=== PATIENT | male | born 1945 | race Caucasian/White ===

== ENCOUNTER 2021-04-20 09:43 | Outpatient (REF) | payer MEDICARE, SELFPAY ==
--- NOTE | ~2021-04-20 | CT_ITS ---
EXAMINATION: CT HEAD WITHOUT CONTRAST CLINICAL INFORMATION: Dizziness intravenous COMPARISON: None TECHNIQUE: Contiguous axial imaging was performed from the skull base to vertex without intravenous administration of contrast. This CT examination was performed using dose optimization techniques as appropriate, variously including the following: *Automated exposure control *Adjustment of mA and/or kV according to patient size (this includes techniques or standardized protocols for targeted exams where dose is matched to indication/reason for exam; i.e. extremities or head) *Use of iterative reconstruction technique DLP: 700 mGy-cm FINDINGS: There is no evidence of an extra-axial collection. There is no evidence of intra-axial or extra-axial hemorrhage. Ventricles and extra-axial CSF spaces are slightly prominent suggestive of mild generalized atrophy. There is nonspecific periventricular white matter disease. No mass, mass effect or infarct is seen. There is old trauma or postsurgical change to the right parietal bone. There are bilateral nasal bone fractures, probably old. There are degenerative changes at the right temporomandibular joint. Bony structures are otherwise unremarkable. Paranasal sinuses, mastoid air cells and middle ears are clear. CT/CT head/brain wo con IMPRESSION: No acute intracranial findings. Mild generalized atrophy and nonspecific periventricular white matter disease.
== END 2021-04-20 09:44 | disposition home or self-care (01) ==
LOC: HO.CT 09:43
PROVIDERS: PCP Internal Medicine; Visit Provider Internal Medicine
DX: R42 Dizziness and giddiness (principal)
CPT/HCPCS: 70450

== ENCOUNTER 2021-08-14 09:26 | Inpatient (IN) | payer MEDICARE, SELFPAY ==
[2021-08-14] VITALS (8 sets, daily range): BP systolic 120–173; BP diastolic 48–90; PULSE 59–85; RESP 16–19; TEMP 36.7–37.1; O2SAT 90–94; BMI 26.7; BMI 27.3
--- NOTE | ~2021-08-14 | XR_ITS ---
EXAMINATION: XR CHEST CLINICAL INFORMATION: Worsening hypoxia COMPARISON: Previous chest CT 08/14/2021 TECHNIQUE: AP view of the chest was obtained. FINDINGS: The cardiac and mediastinal contours are normal. There is a small left pleural effusion. There is increasing atelectasis or consolidation in the adjacent left lung base. The lungs are otherwise clear. There is no right pleural effusion. There is no pneumothorax XR/XR chest 1V IMPRESSION: New small left pleural effusion and increasing atelectasis or consolidation at the left lung base.
--- NOTE | ~2021-08-14 | CT_ITS ---
EXAMINATION: CT BRAIN, CT CERVICAL SPINE WITHOUT CONTRAST. CT CHEST, ABDOMEN PELVIS WITHOUT CONTRAST. CLINICAL INFORMATION: Fall, ecchymosis left flank. COMPARISON: None TECHNIQUE: 5 mm thin axial and reformatted 3 mm thin sagittal coronal images of chest, abdomen and pelvis were obtained following IV 75 mL Omnipaque 300. DLP 744. Axial 5 minutes thin and reformatted 2 minutes thin sagittal and coronal images of brain were obtained. Lastly axial 3 mm thin and 2 minutes thin reconstructed sagittal coronal images of cervical spine were obtained. DLP 1205. FINDINGS: Chest: There is diffuse centrilobular and paraseptal emphysematous changes of both lungs without acute consolidation. There is a reticular interstitial thickening involving both lower lobes, right middle lobe and lingula moderate parenchymal thickening involving the lingula and right lower lobe. Scattered 1 mm and less nodular densities are seen in both lung bases. Focal thick bandlike atelectasis seen in right lower lobe posterior basal segment. There is no worrisome nodule or mass visualized. There is no pleural effusion, calcification or thickening seen. The thyroid lobes are symmetrical and normal. The heart size and the great vessels are normal caliber. There are small shotty lymph nodes in the mediastinum. The central trachea and the bronchi widely patent. The axilla and chest wall appears unremarkable. Bone windows reveals left posterior lateral ninth and 10th rib minimally displaced fractures. No additional bony abnormality seen. ABDOMEN AND PELVIS: The liver is normal size, contour and density. No focal lesion or laceration seen. No intrahepatic ductal dilatation. Visualized spleen, pancreas, bilateral adrenal glands unremarkable. There are no radiopaque gallstones, radiopaque renal calculi or hydronephrosis. There are bilateral renal hypodensities likely renal cysts. Largest cyst midpole right measures 2 cm. There is atherosclerotic changes of abdominal aorta with a normal caliber aorta and common iliac arteries. There is moderate stool in the right colon with scattered gas, diverticuli throughout the colon without distention. The small bowel loops are normal caliber. Appendix is not visualized. No obstruction, free air or free fluid. There is a small umbilical hernia containing fat. No intra-abdominal mass or lymphadenopathy seen. Obesity due to the pelvis reveals a unremarkable nondistended bladder. No free fluid. The prostate gland is normal. Bone windows reveal severe degenerative disc changes L4-L5 disc level with mild ventral spondylosis lower dorsal and mid lumbar spine. No lytic or sclerotic process seen. Brain: There is no acute intra-axial, extra-axial bleed, masses or midline shift. There is no acute infarction evolution. There is no edema. There is diffuse periventricular hypodensity in both cerebral hemispheres without mass effect. Bone windows reveal mild deformity of the outer table of the right frontoparietal calvarium. Question old injury. Bilateral paranasal sinuses are normal. There is no scalp soft tissue abnormality. Cervical spine: There is normal cervical lordosis. The vertebral heights and alignment is normal. There is loss of C3-C4, C4-C5, C5-C6 and C6-C7 disc heights with mild ventral and posterior spondylosis. The craniovertebral junction and the C1-C2 alignment is normal. There is moderate left C2-C3, C3-C4 facet joint arthropathy and hypertrophy. No lytic or sclerotic process seen. No visible acute fracture, dislocation or lytic process seen. The prevertebral and paravertebral soft tissues are normal. There is diffuse emphysematous changes of both upper lobes. CT/CT cervical spine wo con IMPRESSION: Left posterolateral ninth and 10th of fractures without pneumothorax. Diffuse emphysema with bibasilar, right middle lobe and lingular scarring and/or atelectasis. No acute process seen in the abdomen. There are bilateral renal cysts without radiopaque calculi or hydronephrosis. The solid organs are intact. Moderate stool is seen in the right colon with scattered colonic diverticulosis. No acute intracranial process seen. There is mild deformity right frontoparietal calvarium. There is no acute fracture, dislocation or subluxation cervical spine. There are degenerative disc changes with ventral spondylosis C3-C4, C4-C5, C5-C6 and C6-C7 disc levels.
--- NOTE | 2021-08-14 09:39 | ECG_ITS ---
Test Reason : CHEST TRUMA Blood Pressure : / mmHG Vent. Rate : 078 BPM Atrial Rate : 078 BPM P-R Int : 176 ms QRS Dur : 078 ms QT Int : 382 ms P-R-T Axes : 064 -32 063 degrees QTc Int : 435 ms Sinus rhythm with occasional Premature ventricular complexes Left axis deviation Low voltage QRS Abnormal ECG No previous ECGs available Referred By: Mary Cassidy Electronically Signed By:MARIANO VINSON
--- NOTE | 2021-08-14 09:41 | ED_ITS ---
HPI - Trauma General Chief Complaint: Fall Stated Complaint: L SIDE PAIN S/P FALL LAST NIGHT Time Seen by Provider: 08/14/21 09:37 Source: patient Mode of arrival: EMS History of Present Illness HPI narrative: 76-year-old male brought in by EMS from a rest home with past medical history of COPD, diabetes, hypertension and reports seizures as well as multiple falls over the past couple of years, currently on Xarelto. Patient feels like his falls are related to low blood sugar levels and he states that he falls out of bed at night. On presentation he complains of left chest/rib pain. Patient reports that he has been having increased falls that he states occur whenever he gets out of bed and he feels strongly that this is related to low sugar levels, denies any palpitations prior to the events or chest pain. Related Data Home Medications Medication Instructions Recorded Confirmed aspirin 81 mg tablet,delayed 81 mg PO DAILY 11/18/20 06/22/21 release (Adult Low Dose Aspirin) Previous Rx's Medication Instructions Recorded insulin syringe-needle U-100 0.5 #100 ea 02/04/21 mL 30 gauge x 1/2 (BD Insulin Syringe Ultra-Fine) compr.stocking,thigh,reg,large #2 ea 02/07/21 albuterol sulfate 90 mcg/actuation 1 puff INHALATION Q4H PRN #8.5 g 02/10/21 aerosol inhaler amlodipine 10 mg tablet 10 mg PO DAILY #90 tab 02/10/21 budesonide-formoterol HFA 160 2 puff INHALATION BID #10.2 g 02/10/21 mcg-4.5 mcg/actuation aerosol inhaler (Symbicort) rivaroxaban 20 mg tablet (Xarelto) 20 mg PO DAILY #90 tab 02/10/21 gabapentin 400 mg capsule 400 mg PO BID #180 cap 02/14/21 lisinopril 40 mg tablet 40 mg PO DAILY #90 tab 02/14/21 insulin lispro protamine-lispro 45 unit (0.45 mL) SUBCUT BID #10 ml 03/24/21 100 unit/mL (75-25) subcutaneous susp (Humalog Mix 75-25(U-100)Insuln) blood sugar diagnostic (OneTouch #100 ea 04/26/21 Ultra Test) lancets 30 gauge (OneTouch Delica #100 ea 06/14/21 Plus Lancet) chair, wheel (Wheel chair) #1 ea 06/22/21 Allergies Allergy/AdvReac Type Severity Reaction Status Date / Time No Known Allergies Allergy Verified 06/22/21 12:49 Review of Systems Review of Systems: Pertinent positives and negatives as stated in HPI 10 point review of systems is otherwise negative. [facility] Past Medical History Source: nursing notes reviewed Medical History Diabetes mellitus with coincident hypertension Surgical History History of tonsillectomy Family History Family History Mother No problems noted. Father No problems noted. Other Substance use disorder Social History Social History Housing: Assisted Living Facility Alcohol intake: never Patient Tobacco Use Status: Former Tobacco user Quit Date: 2017 e-Cigarette/Vaping Use: Never Used Second Hand Smoke Exposure: No Use of substances other than those prescribed or required for medical reasons: No Advance Directives: No Advance Directives Information Provided: No service: No Current occupational status: unemployed Cognitive needs: Yes Hearing needs: No Vision needs: No Physical Exam Vital Signs: Vital Signs: Last Vital Signs Temp 98.2 F 08/14/21 09:38 Pulse 82 08/14/21 10:41 Resp 19 08/14/21 10:41 BP 173/70 H 08/14/21 09:38 Pulse Ox 94 08/14/21 10:41 BMI result Body Mass Index 26.7 Blood Thinners: Yes PRIMARY SURVEY A: Airway intact B: Bilateral, symmetrical breath sounds C: Bilateral DP/PT/femoral/radial palpable pulses symmetrical, ABD soft/ non- distended, PELVIS: stable/+ tender BP:173/70 D: GCS-15, motor and sensory grossly intact, FAST not completed E: No back abrasions, no cervical/thoracic/lumbar vertebral tenderness/step-off, KINJAL- deferred SECONDARY SURVEY HEAD: NC/AT, no lacerations/contusions noted; EARS: no hemotympanum; EYES: 2mm PERRLA, EOMI NOSE: no deformity, wnl; OROPHARYNX: able to open mouth and tongue is midline without laceration FACE: without abrasions, lacerations, contusions, or ttp NECK: c-collar, no cervical spine tenderness; CHEST WALL/THORAX: no clavicle deformity or ttp, no sternum but left rib deformity, ttp at left ribs RUE: fROM at shoulder/elbow/wrist and neurovascular intact, no deformity, no abrasions/lacerations, cap refill <3s LUE: fROM at shoulder/elbow/wrist and neurovascular intact, no deformity, no abrasions/lacerations, cap refill <3s ABD: soft, non-tender, non-distended, left flank ecchymosis PELVIS: stable, tenderness on the left : external genitalia grossly within normal limits RLE: fROM at hip/knee/ankle neurovascular intact LLE: fROM at hip/knee/ankle neurovascular intact ROS: 10 point review of systems has been completed. Please refer to HPI for pertinent negative and positives. A/P: 76-year-old male with multiple falls most recently this morning on Xarelto and complaining of left chest wall pain, tenderness, shortness of breath - Labs (CBC, CMP, Troponin, PT/INR, PTT) - CT: head, c-spine, Thorax w/ contrast and T-spine recon, Abd/pelvis w contrast and L-spine recon - Type and Screen - Urinalysis, Urine Tox - Blood Alcohol - Tetanus - Consult <> Course Course Course Narrative: Review of all investigations demonstrates that patient has a mild leukocytosis which is felt to be reactive secondary to traumatic fall this morning. All imaging otherwise negative except for left posterior lateral fractures rib 9/10. EKG does not show any evidence of arrhythmia and patient reports that he is on anticoagulation for history DVT. The biggest concern at this point is that p jolene reports these have all been syncopal episodes that he feels are associated with hypoglycemia, although of note glucose is 228 on arrival. Patient provided with combination analgesics, no suggestion of COPD exacerbation at this time. I discussed this case with the inpatient hospitalist who accepts admission after orthostatics evaluation. MDM - Trauma Lab Data Result diagrams: 08/14/21 09:55 08/14/21 09:55 Labs: Lab Results 08/14/21 08/14/21 08/14/21 Range/Units 09:55 09:55 09:55 WBC 12.2 H (4.8-10.8) X10*3/uL RBC 4.62 (4.60-5.80) X10*6/uL Hgb 13.2 L (14.0-18.0) g/dl Hct 40.4 L (42.0-52.0) % MCV 87.4 (80.0-98.0) fL MCH 28.6 (27.0-33.0) pg MCHC 32.7 (31.0-36.0) g/dl RDW 12.8 (11.0-16.0) % Plt Count 211 (160-400) X10*3/uL MPV 11.2 (9.4-12.4) fL Immature Gran % (Auto) 0.2 (0.0-0.4) % Neut % (Auto) 83.8 H (45-73) % Lymph % (Auto) 8.3 L (20-40) % [place] % (Auto) 7.2 (2-11) % Eos % (Auto) 0.2 (0-4) % Baso % (Auto) 0.3 (0-2) % Lymph # (Auto) 1.0 L (1.2-4.9) X10*3/uL [place] # (Auto) 0.9 (0.1-1.2) X10*3/uL Eos # (Auto) 0.0 (0.0-0.4) X10*3/uL Baso # (Auto) 0.0 (0.0-0.2) X10*3/uL Abs Immat Gran (auto) 0.03 (0.00-0.03) X10*3/uL Absolute Neuts (auto) 10.3 H (2.0-8.3) x10*3/uL Absolute Nucleated RBC 0.000 (0.0-0.012) X10*3/uL Nucleated RBC % (auto) 0.0 (0.0-0.2) /100WBC PT 14.9 H (9.9-13.0) SEC INR 1.3 H (0.9-1.1) Sodium 137 (135-145) mmol/L Potassium 4.8 (3.3-5.1) mmol/L Chloride 102 (96-108) mmol/L Carbon Dioxide 22 (22-29) mmol/L Anion Gap 18 (12-20) BUN 25 H (9-16) mg/dL Creatinine 1.29 (0.5-1.4) mg/dL Estim Creat Clear Calc 46.2 Estimated GFR 54 POC Glucose (60-115) mg/dL Random Glucose 233 H (60-115) mg/dL Lactic Acid (0.5-2.0) mmol/L Calcium 9.2 (8.4-10.2) mg/dL Magnesium 2.0 (1.6-2.6) mg/dL Total Bilirubin 2.5 H (0.0-1.0) mg/dL AST 34 (5-37) U/L ALT 23 (0-40) U/L Alkaline Phosphatase 69 (39-117) U/L Total Protein 6.8 (6.5-8.0) g/dL Albumin 4.2 (3.5-5.0) g/dL Urine Color Urine Appearance Urine pH (5.0-8.0) Ur Specific [place] (1.005-1.025) Urine Protein (NEG-TRACE) MG/DL Urine Glucose (UA) (NEG) MG/DL Urine Ketones (NEG) MG/DL Urine Blood (NEG) Urine Nitrite (NEG) Ur Leukocyte Esterase (NEG) Urine RBC (0) /HPF Urine WBC (0-4) /HPF Ur Squamous Epith Cells /LPF Urine Bacteria /LPF Urine Mucus /LPF Ethyl Alcohol mg/dL 08/14/21 08/14/21 08/14/21 Range/Units 09:55 09:55 10:07 WBC (4.8-10.8) X10*3/uL RBC (4.60-5.80) X10*6/uL Hgb (14.0-18.0) g/dl Hct (42.0-52.0) % MCV (80.0-98.0) fL MCH (27.0-33.0) pg MCHC (31.0-36.0) g/dl RDW (11.0-16.0) % Plt Count (160-400) X10*3/uL MPV (9.4-12.4) fL Immature Gran % (Auto) (0.0-0.4) % Neut % (Auto) (45-73) % Lymph % (Auto) (20-40) % [place] % (Auto) (2-11) % Eos % (Auto) (0-4) % Baso % (Auto) (0-2) % Lymph # (Auto) (1.2-4.9) X10*3/uL [place] # (Auto) (0.1-1.2) X10*3/uL Eos # (Auto) (0.0-0.4) X10*3/uL Baso # (Auto) (0.0-0.2) X10*3/uL Abs Immat Gran (auto) (0.00-0.03) X10*3/uL Absolute Neuts (auto) (2.0-8.3) x10*3/uL Absolute Nucleated RBC (0.0-0.012) X10*3/uL Nucleated RBC % (auto) (0.0-0.2) /100WBC PT (9.9-13.0) SEC INR (0.9-1.1) Sodium (135-145) mmol/L Potassium (3.3-5.1) mmol/L Chloride (96-108) mmol/L Carbon Dioxide (22-29) mmol/L Anion Gap (12-20) BUN (9-16) mg/dL Creatinine (0.5-1.4) mg/dL Estim Creat Clear Calc Estimated GFR POC Glucose 228 H (60-115) mg/dL Random Glucose (60-115) mg/dL Lactic Acid 1.1 (0.5-2.0) mmol/L Calcium (8.4-10.2) mg/dL Magnesium (1.6-2.6) mg/dL Total Bilirubin (0.0-1.0) mg/dL AST (5-37) U/L ALT (0-40) U/L Alkaline Phosphatase (39-117) U/L Total Protein (6.5-8.0) g/dL Albumin (3.5-5.0) g/dL Urine Color Urine Appearance Urine pH (5.0-8.0) Ur Specific [place] (1.005-1.025) Urine Protein (NEG-TRACE) MG/DL Urine Glucose (UA) (NEG) MG/DL Urine Ketones (NEG) MG/DL Urine Blood (NEG) Urine Nitrite (NEG) Ur Leukocyte Esterase (NEG) Urine RBC (0) /HPF Urine WBC (0-4) /HPF Ur Squamous Epith Cells /LPF Urine Bacteria /LPF Urine Mucus /LPF Ethyl Alcohol < 10 mg/dL 08/14/21 Range/Units 13:35 WBC (4.8-10.8) X10*3/uL RBC (4.60-5.80) X10*6/uL Hgb (14.0-18.0) g/dl Hct (42.0-52.0) % MCV (80.0-98.0) fL MCH (27.0-33.0) pg MCHC (31.0-36.0) g/dl RDW (11.0-16.0) % Plt Count (160-400) X10*3/uL MPV (9.4-12.4) fL Immature Gran % (Auto) (0.0-0.4) % Neut % (Auto) (45-73) % Lymph % (Auto) (20-40) % [place] % (Auto) (2-11) % Eos % (Auto) (0-4) % Baso % (Auto) (0-2) % Lymph # (Auto) (1.2-4.9) X10*3/uL [place] # (Auto) (0.1-1.2) X10*3/uL Eos # (Auto) (0.0-0.4) X10*3/uL Baso # (Auto) (0.0-0.2) X10*3/uL Abs Immat Gran (auto) (0.00-0.03) X10*3/uL Absolute Neuts (auto) (2.0-8.3) x10*3/uL Absolute Nucleated RBC (0.0-0.012) X10*3/uL Nucleated RBC % (auto) (0.0-0.2) /100WBC PT (9.9-13.0) SEC INR (0.9-1.1) Sodium (135-145) mmol/L Potassium (3.3-5.1) mmol/L Chloride (96-108) mmol/L Carbon Dioxide (22-29) mmol/L Anion Gap (12-20) BUN (9-16) mg/dL Creatinine (0.5-1.4) mg/dL Estim Creat Clear Calc Estimated GFR POC Glucose (60-115) mg/dL Random Glucose (60-115) mg/dL Lactic Acid (0.5-2.0) mmol/L Calcium (8.4-10.2) mg/dL Magnesium (1.6-2.6) mg/dL Total Bilirubin (0.0-1.0) mg/dL AST (5-37) U/L ALT (0-40) U/L Alkaline Phosphatase (39-117) U/L Total Protein (6.5-8.0) g/dL Albumin (3.5-5.0) g/dL Urine Color YELLOW Urine Appearance CLEAR Urine pH 6.5 (5.0-8.0) Ur Specific [place] <= 1.005 (1.005-1.025) Urine Protein TRACE (NEG-TRACE) MG/DL Urine Glucose (UA) NEG (NEG) MG/DL Urine Ketones 40 (NEG) MG/DL Urine Blood TRACE (NEG) Urine Nitrite NEG (NEG) Ur Leukocyte Esterase NEG (NEG) Urine RBC 0-2 (0) /HPF Urine WBC 0 (0-4) /HPF Ur Squamous Epith Cells NONE /LPF Urine Bacteria NONE /LPF Urine Mucus 1+ /LPF Ethyl Alcohol mg/dL ECG Data Attestation: I personally reviewed and interpreted this ECG as follows: Prior ECG tracings: not available for review Interpretation: Sinus rhythm with occasional PVCs, HR-78, no STEMI, [place]/QRS/QTC are within normal limits. Critical Care Time Critical Care Time Critical Care Time: Yes Total Critical Care Time: 30 Attestation: I personally attest to this time spent taking care of the patient. Discharge Plan Discharge Clinical Impression: Syncope, Trauma, Multiple rib fractures, COPD (chronic obstructive pulmonary disease), Diabetes Patient Disposition: Admitted As Inpatient Prescriptions: No Action (DME) insulin syringe-needle U-100 [BD Insulin Syringe Ultra-Fine] 0.5 mL 30 gauge x 1/2 syringe See Rx Instructions ea .ROUTE .MEDSUPPLY Qty: 100 0RF Rx Instructions: Use daily (DME) compr.stocking,thigh,reg,large Misc See Rx Instructions .Route Qty: 2 0RF Rx Instructions: To use daily albuterol sulfate 90 mcg/actuation HFA aerosol inhaler 1 puff inhalation Q4H PRN (Reason: wheezing) Qty: 8.5 8RF amlodipine 10 mg tablet 10 mg PO DAILY Qty: 90 8RF budesonide-formoterol [Symbicort] 160-4.5 mcg/actuation HFA aerosol inhaler 2 puff inhalation BID Qty: 10.2 8RF Xarelto 20 mg tablet 20 mg PO DAILY Qty: 90 8RF gabapentin 400 mg capsule 400 mg PO BID Qty: 180 8RF lisinopril 40 mg tablet 40 mg PO DAILY Qty: 90 8RF Humalog Mix 75-25(U-100)Insuln 100 unit/mL (75-25) suspension 45 unit subcut BID Qty: 10 8RF (DME) OneTouch Ultra Test Strip See Rx Instructions ea .ROUTE .MEDSUPPLY Qty: 100 8RF Rx Instructions: to check blood sugars three times a day (DME) lancets [OneTouch Delica Plus Lancet] 30 gauge misc See Rx Instructions ea .ROUTE .MEDSUPPLY Qty: 100 8RF Rx Instructions: As directed (DME) Wheel chair Kit See Rx Instructions .Route Qty: 1 0RF Rx Instructions: As directed aspirin [Adult Low Dose Aspirin] 81 mg tablet,delayed release (DR/EC) 81 mg PO DAILY 0RF hydrocodone-acetaminophen 5-325 mg tablet 1 - 2 tab PO TID PRN (Reason: pain) 0RF Flovent HFA 110 mcg/actuation HFA aerosol inhaler 2 puff inhalation BID 0RF nitroglycerin 0.4 mg tablet, sublingual 0.4 mg sublingual Q5M PRN0RF Rx Instructions: do not exceed 3 doses per episode
[2021-08-14 10:03] LABS: MANUAL DIFF FLAG NO
[2021-08-14 10:04] LABS: Basophils Percent Auto 0.3 % (0-2); Eosinophils Percent Auto 0.2 % (0-4); Hematocrit 40.4 % (42.0-52.0); Hemoglobin 13.2 g/dl (14.0-18.0); Imm Gran Abs Auto 0.03 X10*3/uL (0.00-0.03); Imm Gran Pct Auto 0.2 % (0.0-0.4); Lymphocytes Percent Auto 8.3 % (20-40); Mean Corpuscular HGB Conc 32.7 g/dl (31.0-36.0); Mean Corpuscular Hemoglobin 28.6 pg (27.0-33.0); Mean Corpuscular Volume 87.4 fL (80.0-98.0); Mean Platelet Volume 11.2 fL (9.4-12.4); Monocytes Absolute Auto 0.9 X10*3/uL (0.1-1.2); Monocytes Percent Auto 7.2 % (2-11); Neutrophils Absolute Auto 10.3 x10*3/uL (2.0-8.3); Neutrophils Percent Auto 83.8 % (45-73); Platelet Count 211 X10*3/uL (160-400); Red Blood Count 4.62 X10*6/uL (4.60-5.80); Red Cell Distribution Width 12.8 % (11.0-16.0); White Blood Count 12.2 X10*3/uL (4.8-10.8)
[2021-08-14 10:10] LABS: INTERNATIONAL NORM RATIO 1.3 (0.9-1.1); Prothrombin Time 14.9 SEC (9.9-13.0)
[2021-08-14 10:14] LABS: Lactic Acid 1.1 mmol/L (0.5-2.0)
[2021-08-14 10:16] LABS: Ethanol < 10 mg/dL
[2021-08-14 10:22] LABS: Alanine Aminotransferase 23 U/L (0-40); Albumin Level 4.2 g/dL (3.5-5.0); Alkaline Phosphatase 69 U/L (39-117); Anion Gap 18 (12-20); Aspartate Amino Transferase 34 U/L (5-37); Bilirubin Total 2.5 mg/dL (0.0-1.0); Blood Urea Nitrogen 25 mg/dL (9-16); Calcium 9.2 mg/dL (8.4-10.2); Carbon Dioxide 22 mmol/L (22-29); Chloride 102 mmol/L (96-108); Creatinine Clr Calc Pharmacy 46.2; Estimated Glomerular Filt Rate 54; Glucose Random 233 mg/dL (60-115); Potassium 4.8 mmol/L (3.3-5.1); Sodium 137 mmol/L (135-145); Total Protein 6.8 g/dL (6.5-8.0)
[2021-08-14 11:52] LABS: Glucose, Whole Blood 228 mg/dL (60-115)
[2021-08-14 13:39] LABS: Appearance Urine CLEAR; Color Urine YELLOW; Glucose Urine UA NEG (NEG); Leukocyte Esterase Urine NEG (NEG); Nitrite Urine NEG (NEG); PH 6.5 (5.0-8.0); Specific Gravity - Urine <= 1.005 (1.005-1.025); UACC Culture Trigger NO; Urine Blood TRACE (NEG); Urine Ketones 40 MG/DL (NEG); Urine Protein TRACE MG/DL (NEG-TRACE)
[2021-08-14 13:46] LABS: Mucus Urine 1+ /LPF; RBC Urine 0-2 /HPF (0); WBC Urine 0 /HPF (0-4)
[2021-08-14] MEDS: Acetaminophen 325 MG TABLET 975 MG PO (13:55)
[2021-08-14] MEDS: Lidocaine 4 % Patch ADH..PATCH 1 PATCH TRANSDERMA (13:56)
[2021-08-14] MEDS: Ketorolac Tromethamine 30 MG/ML VIAL 15 MG IVPUSH (13:56)
[2021-08-14] MEDS: Benzonatate 100 MG CAPSULE 200 MG PO (14:19)
--- NOTE | 2021-08-14 14:25 | PC.NURSE ---
alert, speech clear, skin wpd, c/o l chest wall pain, medicated as ordered, aware of care plan, pt was not able to ambulate safely at the assisted living prior to the fall per the pt, does not think he could safely go home, md informed and plan to consult case management, pt agreeable w plan
[2021-08-14] MEDS: 0.9 % Sodium Chloride 1,000 ML 999 ML IV (14:50)
[2021-08-14 15:13] LABS: B Type Natriuretic Peptide 158 pg/mL (<100)
--- NOTE | 2021-08-14 16:03 | PM.IMHP ---
History of Present Illness Date of Service: 08/14/21 Attending physician on admission: Cooper Xie Chief Complaint: Falls, left rib pain This is a 76-year-old male with multiple medical problems who presents the emergency department after a fall. Patient states that he has fallen approximately 10 times over the past 2 and half years. He is a somewhat vague and disorganized historian. On one hand he states that these falls typically happen when he goes from a sitting to standing position and on the other hand he reports that he frequently falls out of bed secondary to low blood sugars. He also states that his blood sugar drops when he stands up. He denies any dizziness, palpitations, chest pain or associated shortness of breath. He denies any history of seizures but thinks that he does have seizures. He was morales-scanned in the emergency department and workup was notable for left 9th and 10th rib fractures. Orthostatic vital signs were obtained and showed a drop from 140 systolic to 120 systolic when standing. Review of Systems Review of Systems: Yes all other systems are reviewed and are negative Constitutional: Constitutional: Denies chills and Denies fever(s) Cardiovascular: Cardiovascular: Denies chest pain, Denies palpitations and Denies dyspnea Respiratory: Respiratory: Denies cough, Reports pain on inspiration and Denies dyspnea Gastrointestinal: Gastrointestinal: Denies abdominal pain, Denies nausea and Denies vomiting Endocrine: Endocrine: Denies palpitations COUNT INCLUDES THE [facility] Medical History (Updated 08/14/21 @ 16:09 by MARTÍN Flores) COPD (chronic obstructive pulmonary disease) Diabetes mellitus with coincident hypertension HTN (hypertension) Functional capacity: independent ambulation Family History Mother No problems noted. Father No problems noted. Other Substance use disorder Surgical History History of tonsillectomy Social History Housing: Assisted Living Facility Alcohol intake: never Patient Tobacco Use Status: Former Tobacco user Quit Date: 2017 e-Cigarette/Vaping Use: Never Used Second Hand Smoke Exposure: No Use of substances other than those prescribed or required for medical reasons: No Advance Directives: No Advance Directives Information Provided: No service: No Current occupational status: unemployed Cognitive needs: Yes Hearing needs: No Vision needs: No Meds Allergies Allergy/AdvReac Type Severity Reaction Status Date / Time No Known Allergies Allergy Verified 06/22/21 12:49 Active Medications: Current Medications Acetaminophen (Acetaminophen 325 Mg Tablet) 650 mg PO Q6H PRN PRN Reason: Pain, Mild (Pain Scale 1-3) Albuterol/Ipratropium (Albuterol/Iprat 2.5/0.5mg 3 Ml Ampul.Neb) 3 ml INHALE RQ4H PRN PRN Reason: Shortness of Breath Dextrose (Dextrose 50 % 25 Gm/50 Ml Syringe) 25 gm IVPUSH Q15M PRN; Protocol PRN Reason: per Hypoglycemia Standing Ord. Docusate Sodium (Docusate Sodium 100 Mg Capsule) 100 mg PO BID [facility] Glucose (Glucose Gel 15 Gm Gel..Gram.) 15 gm PO Q15M PRN; Protocol PRN Reason: per Hypoglycemia Standing Ord. Insulin Human Lispro (Insulin Lispro 100 Unit/Ml 3 Ml Vial) 0 unit SUBCUT QIDACHS [facility]; Protocol Lidocaine (Lidocaine 4 % Patch Adh..Patch) 1 patch TRANSDERMA DAILY [facility]; Protocol Magnesium Hydroxide (Milk Of Magnesia 30 Ml Oral.Susp) 30 ml PO DAILY PRN PRN Reason: Constipation Morphine Sulfate (Morphine Sulfate 4 Mg/Ml Cartridge) 2 mg IVPUSH Q4H PRN; Protocol PRN Reason: Pain, Severe (Pain Scale 7-10) Oxycodone HCl (Oxycodone Hcl Immed Release 5 Mg Tablet) 5 mg PO Q6H PRN PRN Reason: Pain, Moderate (Pain Scale 4-6 Pharmacy Consult (Consult Rx Perform Med Rec) 1 each MISCELLANE ONCE PRN PRN Reason: Consult order Sodium Chloride (0.9 % Sodium Chloride Flush 3 Ml Syringe) 3 [facility] Home Medications Medication Instructions Recorded Confirmed Last Taken Type aspirin 81 mg tablet,delayed 81 mg PO DAILY 11/18/20 08/14/21 Unknown History release (Adult Low Dose Aspirin) Physical Exam Vital Signs and Narrative: Vital Signs: Last Vital Signs Temp 98.2 F 08/14/21 09:38 Pulse 85 08/14/21 15:09 Resp 19 08/14/21 10:41 BP 120/90 H 08/14/21 15:09 Pulse Ox 94 08/14/21 10:41 BMI result Body Mass Index 26.7 Const: General: cooperative and alert Nutritional Appearance: average body habitus Resp: Effort & Inspection: normal respiratory effort and able to speak in complete sentences Auscultation: diminished lung sounds Cardio: Rate: regular rate Rhythm: abnormal rhythm irregularly irregular Heart sounds: S1 normal heart sound present and S2 normal heart sound present GI: Inspection: No distended Palpation (GI): Soft to palpation and nontender Skin: Other: chronic venous stasis changes b/l lower extremities Neuro: Other: no focal deficits appreciated Extrem: Other: b/l pitting edema Psych: Other: odd affect Results Labs CBC and Chem 7: 08/14/21 09:55 08/14/21 09:55 Labs: Laboratory Results - last 24 hr 08/14/21 08/14/21 08/14/21 09:55 09:55 09:55 MCV 87.4 MCH 28.6 MCHC 32.7 RDW 12.8 Plt Count 211 MPV 11.2 Immature Gran % (Auto) 0.2 Neut % (Auto) 83.8 H Lymph % (Auto) 8.3 L [place] % (Auto) 7.2 Eos % (Auto) 0.2 Baso % (Auto) 0.3 Lymph # (Auto) 1.0 L [place] # (Auto) 0.9 Eos # (Auto) 0.0 Baso # (Auto) 0.0 Abs Immat Gran (auto) 0.03 Absolute Neuts (auto) 10.3 H Absolute Nucleated RBC 0.000 Nucleated RBC % (auto) 0.0 PT 14.9 H INR 1.3 H Anion Gap 18 Estim Creat Clear Calc 46.2 Estimated GFR 54 POC Glucose Random Glucose 233 H Lactic Acid Calcium 9.2 Magnesium 2.0 Total Bilirubin 2.5 H AST 34 ALT 23 Alkaline Phosphatase 69 B-Natriuretic Peptide Total Protein 6.8 Albumin 4.2 Urine Color Urine Appearance Urine pH Ur Specific [place] Urine Protein Urine Glucose (UA) Urine Ketones Urine Blood Urine Nitrite Ur Leukocyte Esterase Urine RBC Urine WBC Ur Squamous Epith Cells Urine Bacteria Urine Mucus Ethyl Alcohol 08/14/21 08/14/21 08/14/21 09:55 09:55 10:07 MCV MCH MCHC RDW Plt Count MPV Immature Gran % (Auto) Neut % (Auto) Lymph % (Auto) [place] % (Auto) Eos % (Auto) Baso % (Auto) Lymph # (Auto) [place] # (Auto) Eos # (Auto) Baso # (Auto) Abs Immat Gran (auto) Absolute Neuts (auto) Absolute Nucleated RBC Nucleated RBC % (auto) PT INR Anion Gap Estim Creat Clear Calc Estimated GFR POC Glucose 228 H Random Glucose Lactic Acid 1.1 Calcium Magnesium Total Bilirubin AST ALT Alkaline Phosphatase B-Natriuretic Peptide Total Protein Albumin Urine Color Urine Appearance Urine pH Ur Specific [place] Urine Protein Urine Glucose (UA) Urine Ketones Urine Blood Urine Nitrite Ur Leukocyte Esterase Urine RBC Urine WBC Ur Squamous Epith Cells Urine Bacteria Urine Mucus Ethyl Alcohol < 10 08/14/21 08/14/21 13:35 14:48 MCV MCH MCHC RDW Plt Count MPV Immature Gran % (Auto) Neut % (Auto) Lymph % (Auto) [place] % (Auto) Eos % (Auto) Baso % (Auto) Lymph # (Auto) [place] # (Auto) Eos # (Auto) Baso # (Auto) Abs Immat Gran (auto) Absolute Neuts (auto) Absolute Nucleated RBC Nucleated RBC % (auto) PT INR Anion Gap Estim Creat Clear Calc Estimated GFR POC Glucose Random Glucose Lactic Acid Calcium Magnesium Total Bilirubin AST ALT Alkaline Phosphatase B-Natriuretic Peptide 158 H Total Protein Albumin Urine Color YELLOW Urine Appearance CLEAR Urine pH 6.5 Ur Specific [place] <= 1.005 Urine Protein TRACE Urine Glucose (UA) NEG Urine Ketones 40 Urine Blood TRACE Urine Nitrite NEG Ur Leukocyte Esterase NEG Urine RBC 0-2 Urine WBC 0 Ur Squamous Epith Cells NONE Urine Bacteria NONE Urine Mucus 1+ Ethyl Alcohol Imaging Radiologist's Impressions: Impressions Cervical Spine CT 08/14/21 10:52 IMPRESSION: Left posterolateral ninth and 10th of fractures without pneumothorax. Diffuse emphysema with bibasilar, right middle lobe and lingular scarring and/or atelectasis. No acute process seen in the abdomen. There are bilateral renal cysts without radiopaque calculi or hydronephrosis. The solid organs are intact. Moderate stool is seen in the right colon with scattered colonic diverticulosis. No acute intracranial process seen. There is mild deformity right frontoparietal calvarium. There is no acute fracture, dislocation or subluxation cervical spine. There are degenerative disc changes with ventral spondylosis C3-C4, C4-C5, C5-C6 and C6-C7 disc levels. Head CT 08/14/21 10:52 IMPRESSION: Left posterolateral ninth and 10th of fractures without pneumothorax. Diffuse emphysema with bibasilar, right middle lobe and lingular scarring and/or atelectasis. No acute process seen in the abdomen. There are bilateral renal cysts without radiopaque calculi or hydronephrosis. The solid organs are intact. Moderate stool is seen in the right colon with scattered colonic diverticulosis. No acute intracranial process seen. There is mild deformity right frontoparietal calvarium. There is no acute fracture, dislocation or subluxation cervical spine. There are degenerative disc changes with ventral spondylosis C3-C4, C4-C5, C5-C6 and C6-C7 disc levels. Abdomen/Pelvis CT 08/14/21 10:57 IMPRESSION: Left posterolateral ninth and 10th of fractures without pneumothorax. Diffuse emphysema with bibasilar, right middle lobe and lingular scarring and/or atelectasis. No acute process seen in the abdomen. There are bilateral renal cysts without radiopaque calculi or hydronephrosis. The solid organs are intact. Moderate stool is seen in the right colon with scattered colonic diverticulosis. No acute intracranial process seen. There is mild deformity right frontoparietal calvarium. There is no acute fracture, dislocation or subluxation cervical spine. There are degenerative disc changes with ventral spondylosis C3-C4, C4-C5, C5-C6 and C6-C7 disc levels. Chest CT 08/14/21 10:57 IMPRESSION: Left posterolateral ninth and 10th of fractures without pneumothorax. Diffuse emphysema with bibasilar, right middle lobe and lingular scarring and/or atelectasis. No acute process seen in the abdomen. There are bilateral renal cysts without radiopaque calculi or hydronephrosis. The solid organs are intact. Moderate stool is seen in the right colon with scattered colonic diverticulosis. No acute intracranial process seen. There is mild deformity right frontoparietal calvarium. There is no acute fracture, dislocation or subluxation cervical spine. There are degenerative disc changes with ventral spondylosis C3-C4, C4-C5, C5-C6 and C6-C7 disc levels. Assessment and Plan (1) Multiple rib fractures: Status: Acute (2) Syncope: Status: Acute Plan This is a 76 year old male with history of HTN, DM, COPD, presumed afib on xarelto who presents to the emergency department after fall found to have multiple rib fractures Syncope Patient states he passes out frequently. Sometimes this occurs when going from sitting to standing, sometimes occurs at night which he thinks is associated with hypoglycemia denies history of seizures possibly due to orthostatic hypotesnion as Orthostatic vital signs showed drop from 140 systolic to 120 systolic in ED -tele monitoring -IVF -repeat orthostatics in AM -seizure precautions Left 9th and 10th rib fractures secondary to fall Imaging shows no evidence of pneumothorax -incentive spirometry -pain control -p.r.n. breathing treatments COPD No acute exacerbation Continue home inhalers presumed afib as pt states he is on xarelto for stroke prevention EKG NSR, so likely paroxysmal atrial fibrillation Continue Xarelto Not on any rate control agent Hypertension Will hold lisinopril, Norvasc for orthostatic hypotension Monitor blood pressure closely Diabetes Patient is 75/25 mix at baseline - will convert to lantus SSI, POCs neuropathy continue gabapentin dvt ppx - xarelto attending: dr. wilkes patient will likely require two midnight stay in hospital due to workup for syncope and treatment of probable orthostatic hypotension/pain r/t rib fractures Quality Stroke Does the patient have a stroke diagnosis?: No VTE Prior VTE?: No VTE Risk Level:: Medical - moderate - high VTE Device Contraindication: Treatment Not Indicated VTE Drug Contraindication: N/A - Med Ordered
[2021-08-14 17:30] LABS: COVID-19 Test Negative (Negative); IDNOW Serial# 16C4AD1C
--- NOTE | 2021-08-14 17:58 | PC.NURSE ---
Report given to Myra Lucy MARCELINO
[2021-08-14] MEDS: 0.9 % Sodium Chloride Flush 3 ML SYRINGE IVFLUSH (18:03)
[2021-08-14 19:45] LABS: Glucose, Whole Blood 255 mg/dL (60-115)
[2021-08-14 20:16] LABS: Glucose, Whole Blood 166 mg/dL (60-115)
[2021-08-14] MEDS: Docusate Sodium 100 MG CAPSULE PO (20:34)
[2021-08-14] MEDS: oxyCODONE HCl Immed Release 5 MG TABLET PO (20:34)
[2021-08-14] MEDS: Gabapentin 400 MG CAPSULE PO (20:34)
[2021-08-14] MEDS: Insulin Glargine,Hum.rec.anlog 100 UNIT/ML 10 ML VIAL 15 UNIT SUBCUT (20:36)
[2021-08-14] MEDS: 0.9 % Sodium Chloride 1,000 ML 100 ML IVCONT (20:37)
[2021-08-15] VITALS (11 sets, daily range): BP systolic 137–182; BP diastolic 62–89; PULSE 56–96; RESP 15–20; TEMP 37–37.7; O2SAT 86–97
[2021-08-15 00:39] LABS: Glucose, Whole Blood 265 mg/dL (60-115)
[2021-08-15] MEDS: Morphine Sulfate 4 MG/ML CARTRIDGE 2 MG IVPUSH ×4 (00:42→21:29)
[2021-08-15] MEDS: 0.9 % Sodium Chloride 1,000 ML 100 ML IVCONT ×2 (05:41→14:58)
[2021-08-15 06:43] LABS: Hematocrit 38.7 % (42.0-52.0); Hemoglobin 12.7 g/dl (14.0-18.0); Mean Corpuscular HGB Conc 32.8 g/dl (31.0-36.0); Mean Corpuscular Hemoglobin 29.2 pg (27.0-33.0); Mean Platelet Volume 11.4 fL (9.4-12.4); Platelet Count 177 X10*3/uL (160-400); Red Blood Count 4.35 X10*6/uL (4.60-5.80); Red Cell Distribution Width 12.8 % (11.0-16.0); White Blood Count 8.9 X10*3/uL (4.8-10.8)
[2021-08-15 06:58] LABS: Anion Gap 10 (12-20); Blood Urea Nitrogen 22 mg/dL (9-16); Carbon Dioxide 23 mmol/L (22-29); Chloride 109 mmol/L (96-108); Creatinine Clr Calc Pharmacy 64.4; Estimated Glomerular Filt Rate > 60; Glucose Random 173 mg/dL (60-115); Potassium 4.3 mmol/L (3.3-5.1); Sodium 138 mmol/L (135-145)
[2021-08-15 07:09] LABS: Calcium 8.3 mg/dL (8.4-10.2)
[2021-08-15] MEDS: Lidocaine 4 % Patch ADH..PATCH 1 PATCH TRANSDERMA (08:05)
[2021-08-15 08:06] LABS: Glucose, Whole Blood 172 mg/dL (60-115)
[2021-08-15] MEDS: Gabapentin 400 MG CAPSULE PO ×2 (08:06→21:29)
[2021-08-15] MEDS: oxyCODONE HCl Immed Release 5 MG TABLET PO (08:06)
[2021-08-15] MEDS: Rivaroxaban 20 MG TABLET PO (08:06)
[2021-08-15] MEDS: Docusate Sodium 100 MG CAPSULE PO ×2 (08:06→21:29)
[2021-08-15] MEDS: Insulin Lispro 100 UNIT/ML 3 ML VIAL SUBCUT ×2 (08:08→16:46)
[2021-08-15] MEDS: Insulin Glargine,Hum.rec.anlog 100 UNIT/ML 10 ML VIAL 15 UNIT SUBCUT (08:10)
[2021-08-15 10:56] LABS: Glucose, Whole Blood 174 mg/dL (60-115)
--- NOTE | 2021-08-15 11:28 | HO.PM.IMPN ---
Subjective Subjective Date of Service: 08/15/21 Review of Systems Follow up Hypoglycemia doing better today having pain from rib fracture Physical Exam Vital Signs: Vital Signs: Last Vital Signs Temp 99.8 F 08/15/21 11:11 Pulse 68 08/15/21 11:11 Resp 20 08/15/21 11:11 BP 146/62 H 08/15/21 11:11 Pulse Ox 90 L 08/15/21 11:11 BMI result Body Mass Index 27.3 Appearing in no acute distress head is normocephalic atraumatic eyes pupils are PERRLA sclera is anicteric mouth throat mucous membranes are intact and moist neck is supple no lymphadenopathy, no JVD noted lung sounds are clear to auscultation heart regular rate rhythm, clear S1, S2 positive bowel sounds, abdomen is soft, nontender neuro patient is alert x3, no focal deficits Objective Data Active Medications Acetaminophen (Acetaminophen 325 Mg Tablet) 650 mg PO Q6H PRN PRN Reason: Pain, Mild (Pain Scale 1-3) Albuterol Sulfate (Albuterol Sulfate 90 Mcg 8 Gm Inhaler) 1 puff INHALE Q4H PRN PRN Reason: wheezing Albuterol/Ipratropium (Albuterol/Iprat 2.5/0.5mg 3 Ml Ampul.Neb) 3 ml INHALE Q4H PRN PRN Reason: Shortness of Breath Dextrose (Dextrose 50 % 25 Gm/50 Ml Syringe) 25 gm IVPUSH Q15M PRN; Protocol PRN Reason: per Hypoglycemia Standing Ord. Docusate Sodium (Docusate Sodium 100 Mg Capsule) 100 mg PO BID [facility] Last Admin: 08/15/21 08:06 Dose: 100 mg Documented by: MADISON Fluticasone/Vilanterol (Fluticasone/Vilanterol 200/25 Blst.W.Dev) 1 puff INHALE RDAILY [facility] Last Admin: 08/15/21 08:09 Dose: Not Given Documented by: RUSSEL Non-Admin Reason: Med Not Available Gabapentin (Gabapentin 400 Mg Capsule) 400 mg PO BID [facility] Last Admin: 08/15/21 08:06 Dose: 400 mg Documented by: MADISON Glucose (Glucose Gel 15 Gm Gel..Gram.) 15 gm PO Q15M PRN; Protocol PRN Reason: per Hypoglycemia Standing Ord. Sodium Chloride (Ns) 1,000 mls @ 100 mls/hr IVCONT .Q10H [facility] Last Admin: 08/15/21 05:41 Dose: 100 mls/hr Documented by: ELIZABETH Insulin Glargine (Insulin Glargine,Hum.Rec.Anlog 100 Unit/Ml 10 Ml Vial) 15 unit SUBCUT BID [facility] Last Admin: 08/15/21 08:10 Dose: 15 unit Documented by: MADISON Insulin Human Lispro (Insulin Lispro 100 Unit/Ml 3 Ml Vial) 0 unit SUBCUT QIDACHS [facility]; Protocol Last Admin: 08/15/21 08:08 Dose: 2 unit Documented by: MADISON Lidocaine (Lidocaine 4 % Patch Adh..Patch) 1 patch TRANSDERMA DAILY [facility]; Protocol Last Admin: 08/15/21 08:05 Dose: 1 patch Documented by: MADISON Magnesium Hydroxide (Milk Of Magnesia 30 Ml Oral.Susp) 30 ml PO DAILY PRN PRN Reason: Constipation Morphine Sulfate (Morphine Sulfate 4 Mg/Ml Cartridge) 2 mg IVPUSH Q4H PRN; Protocol PRN Reason: Pain, Severe (Pain Scale 7-10) Last Admin: 08/15/21 05:39 Dose: 2 mg Documented by: ELIZABETH Oxycodone HCl (Oxycodone Hcl Immed Release 5 Mg Tablet) 5 mg PO Q6H PRN PRN Reason: Pain, Moderate (Pain Scale 4-6 Last Admin: 08/15/21 08:06 Dose: 5 mg Documented by: MADISON Pharmacy Consult (Consult Rx Perform Med Rec) 1 each MISCELLANE ONCE PRN PRN Reason: Consult order Rivaroxaban (Rivaroxaban 20 Mg Tablet) 20 mg PO DAILY [facility] Last Admin: 08/15/21 08:06 Dose: 20 mg Documented by: MADISON Sodium Chloride (0.9 % Sodium Chloride Flush 3 Ml Syringe) 3 ml IVFLUSH QSHIFT [facility] Last Admin: 08/15/21 00:29 Dose: Not Given Documented by: ELIZABETH Non-Admin Reason: IV Running Labs CBC & Chem 7: 08/15/21 06:32 08/15/21 06:32 Labs: Laboratory Results - last 24 hr 06/0508/14/21 08/14/21 10:07 13:35 14:48 MCV MCH MCHC RDW Plt Count MPV Absolute Nucleated RBC Nucleated RBC % (auto) Anion Gap Estim Creat Clear Calc Estimated GFR POC Glucose 228 H Random Glucose Calcium B-Natriuretic Peptide 158 H Urine Color YELLOW Urine Appearance CLEAR Urine pH 6.5 Ur Specific [place] <= 1.005 Urine Protein TRACE Urine Glucose (UA) NEG Urine Ketones 40 Urine Blood TRACE Urine Nitrite NEG Ur Leukocyte Esterase NEG Urine RBC 0-2 Urine WBC 0 Ur Squamous Epith Cells NONE Urine Bacteria NONE Urine Mucus 1+ COVID-19 (YENY) COVID-19 [facility] 08/14/21 08/14/21 08/14/21 15:03 16:50 19:27 MCV MCH MCHC RDW Plt Count MPV Absolute Nucleated RBC Nucleated RBC % (auto) Anion Gap Estim Creat Clear Calc Estimated GFR POC Glucose 166 H 255 H Random Glucose Calcium B-Natriuretic Peptide Urine Color Urine Appearance Urine pH Ur Specific [place] Urine Protein Urine Glucose (UA) Urine Ketones Urine Blood Urine Nitrite Ur Leukocyte Esterase Urine RBC Urine WBC Ur Squamous Epith Cells Urine Bacteria Urine Mucus COVID-19 (YENY) Negative COVID-19 Clin Com See Note 08/15/21 08/15/21 08/15/21 00:35 06:32 06:32 MCV 89.0 MCH 29.2 MCHC 32.8 RDW 12.8 Plt Count 177 MPV 11.4 Absolute Nucleated RBC 0.000 Nucleated RBC % (auto) 0.0 Anion Gap 10 L Estim Creat Clear Calc 64.4 Estimated GFR > 60 POC Glucose 265 H Random Glucose 173 H Calcium 8.3 L D B-Natriuretic Peptide Urine Color Urine Appearance Urine pH Ur Specific [place] Urine Protein Urine Glucose (UA) Urine Ketones Urine Blood Urine Nitrite Ur Leukocyte Esterase Urine RBC Urine WBC Ur Squamous Epith Cells Urine Bacteria Urine Mucus COVID-19 (YENY) COVID-19 Clin Com 08/15/21 08/15/21 07:28 10:52 MCV MCH MCHC RDW Plt Count MPV Absolute Nucleated RBC Nucleated RBC % (auto) Anion Gap Estim Creat Clear Calc Estimated GFR POC Glucose 172 H 174 H Random Glucose Calcium B-Natriuretic Peptide Urine Color Urine Appearance Urine pH Ur Specific [place] Urine Protein Urine Glucose (UA) Urine Ketones Urine Blood Urine Nitrite Ur Leukocyte Esterase Urine RBC Urine WBC Ur Squamous Epith Cells Urine Bacteria Urine Mucus COVID-19 (YENY) COVID-19 Clin Com Assessment and Plan (1) Syncope: Status: Acute Plan This is a 76 year old male with history of HTN, DM, COPD, presumed afib on xarelto who presents to the emergency department after fall found to have multiple rib fractures Diabetes II with hypoglycemia at home patient reports BS on the am around 120, BS late night below 70 and as low as 20 Patient is 75/25 mix at baseline twice daily, likely bottoming out at night due to this discussed case with o/p endo Dr. ellis with rec to start Lantus 36 units at bedtime, add mealtime insulin at 6 units, and adjust sliding scale to start at 200. follow POC closely Syncope. hypoglycemia vs orthostasis Patient states he passes out frequently especially at night.? Sometimes this occurs when going from sitting to standing, sometimes occurs at night which he thinks is associated with hypoglycemia denies history of seizures tele monitoring IVF repeat orthostatics in AM seizure precautions Left 9th and 10th rib fractures secondary to fall Imaging shows no evidence of pneumothorax incentive spirometry pain control, lidocaine patch p.r.n. breathing treatments COPD No acute exacerbation Continue home inhalers presumed afib as pt states he is on xarelto for stroke prevention EKG NSR, so likely paroxysmal atrial fibrillation Continue Xarelto Not on any rate control agent Hypertension Will hold lisinopril, Norvasc for orthostatic hypotension Monitor blood pressure closely neuropathy continue gabapentin dvt ppx - xarelto Attending Dr. Jacobs Continue hospitalization for treatment of hypoglycemia, medication management for this and pain management with IV pain medication for rib fractures Quality Stroke Does the patient have a stroke diagnosis?: No VTE Prior VTE?: No VTE Risk Level:: Medical - moderate - high VTE Device Contraindication: Treatment Not Indicated VTE Drug Contraindication: N/A - Med Ordered
--- NOTE | 2021-08-15 11:56 | MHC.CM.PN ---
met with tp who explins [facility] meals and housekeeping, pt explins that he has a court date sunaugust 17,with housing [facility] he asked i contact [place] executive directoer at assisted living to call zain [place] [facility] to ask for a continuence [place] is on vacation spoke with vp [employer] [facility] assisted living who will work on this situation for pt and get back to t/w pts dc plan is tbd by pts hosptial course pt is vax x 4 hcp filed
[2021-08-15 16:20] LABS: Glucose, Whole Blood 127 mg/dL (60-115)
[2021-08-15] MEDS: Insulin Lispro 100 UNIT/ML 3 ML VIAL 6 UNIT SUBCUT ×2 (16:47→21:30)
[2021-08-15] MEDS: Albuterol/Iprat 2.5/0.5MG 3 ML AMPUL.NEB INHALE (16:48)
[2021-08-15] MEDS: 0.9 % Sodium Chloride Flush 3 ML SYRINGE IVFLUSH ×2 (16:48→21:30)
[2021-08-15] MEDS: Acetaminophen 325 MG TABLET 650 MG PO (16:52)
--- NOTE | 2021-08-15 18:27 | PC.NURSE ---
Alert and oriented. C/O left flank pain from ribs fracture, medicated per MAR with good effect. VSS, afebrile, no acute resp. distress noted. No s/sx of hypo/hyperglycemia noted. Skin and fall precautions maintained. Reposition as needed for comfort.
[2021-08-15 20:00] LABS: Glucose, Whole Blood 180 mg/dL (60-115)
[2021-08-15] MEDS: Insulin Glargine,Hum.rec.anlog 100 UNIT/ML 10 ML VIAL 36 UNIT SUBCUT (21:29)
[2021-08-16] VITALS (9 sets, daily range): BP systolic 152–177; BP diastolic 67–119; PULSE 52–79; RESP 15–20; TEMP 36.1–37.6; O2SAT 92–94
[2021-08-16] MEDS: oxyCODONE HCl Immed Release 5 MG TABLET PO ×3 (00:07→17:15)
[2021-08-16] MEDS: 0.9 % Sodium Chloride 1,000 ML 100 ML IVCONT ×2 (00:08→06:23)
[2021-08-16] MEDS: Morphine Sulfate 4 MG/ML CARTRIDGE 2 MG IVPUSH ×4 (03:15→21:21)
[2021-08-16 06:12] LABS: Hematocrit 37.7 % (42.0-52.0); Hemoglobin 12.2 g/dl (14.0-18.0); Mean Corpuscular HGB Conc 32.4 g/dl (31.0-36.0); Mean Corpuscular Volume 89.8 fL (80.0-98.0); Mean Platelet Volume 11.6 fL (9.4-12.4); Platelet Count 159 X10*3/uL (160-400); Red Cell Distribution Width 12.8 % (11.0-16.0); White Blood Count 8.9 X10*3/uL (4.8-10.8)
[2021-08-16 06:28] LABS: Anion Gap 10 (12-20); Blood Urea Nitrogen 25 mg/dL (9-16); Calcium 8.3 mg/dL (8.4-10.2); Carbon Dioxide 25 mmol/L (22-29); Chloride 107 mmol/L (96-108); Creatinine Clr Calc Pharmacy 63.8; Estimated Glomerular Filt Rate > 60; Glucose Random 186 mg/dL (60-115); Potassium 4.5 mmol/L (3.3-5.1); Sodium 137 mmol/L (135-145)
[2021-08-16 07:28] LABS: Glucose, Whole Blood 180 mg/dL (60-115)
[2021-08-16] MEDS: Lidocaine 4 % Patch ADH..PATCH 1 PATCH TRANSDERMA (07:35)
[2021-08-16] MEDS: 0.9 % Sodium Chloride Flush 3 ML SYRINGE IVFLUSH ×3 (07:35→21:10)
[2021-08-16] MEDS: Insulin Lispro 100 UNIT/ML 3 ML VIAL 6 UNIT SUBCUT ×4 (07:35→21:09)
[2021-08-16] MEDS: Rivaroxaban 20 MG TABLET PO (07:37)
[2021-08-16] MEDS: Gabapentin 400 MG CAPSULE PO ×2 (07:37→21:09)
[2021-08-16] MEDS: Docusate Sodium 100 MG CAPSULE PO ×2 (07:37→21:09)
[2021-08-16] MEDS: Fluticasone/Vilanterol 200/25 BLST.W.DEV 1 PUFF INHALE (08:00)
[2021-08-16 10:59] LABS: Glucose, Whole Blood 294 mg/dL (60-115)
--- NOTE | 2021-08-16 12:02 | HO.PM.IMPN ---
Subjective Subjective Date of Service: 08/16/21 Review of Systems Follow up Hypoglycemia doing better today having pain from rib fracture Physical Exam Vital Signs: Vital Signs: Last Vital Signs Temp 98.4 F 08/16/21 11:31 Pulse 78 08/16/21 11:31 Resp 18 08/16/21 11:31 BP 157/67 H 08/16/21 11:31 Pulse Ox 92 08/16/21 11:31 BMI result Body Mass Index 27.3 Appearing in no acute distress lung sounds are clear to auscultation heart regular rate rhythm, clear S1, S2 positive bowel sounds, abdomen is soft, nontender neuro patient is alert x3, no focal deficits Objective Data Active Medications Acetaminophen (Acetaminophen 325 Mg Tablet) 650 mg PO Q6H PRN PRN Reason: Pain, Mild (Pain Scale 1-3) Last Admin: 08/15/21 16:52 Dose: 650 mg Documented by: MADISON Albuterol Sulfate (Albuterol Sulfate 90 Mcg 8 Gm Inhaler) 1 puff INHALE Q4H PRN PRN Reason: wheezing Albuterol/Ipratropium (Albuterol/Iprat 2.5/0.5mg 3 Ml Ampul.Neb) 3 ml INHALE Q4H PRN PRN Reason: Shortness of Breath Last Admin: 08/15/21 16:48 Dose: 3 ml Documented by: BETTY Dextrose (Dextrose 50 % 25 Gm/50 Ml Syringe) 25 gm IVPUSH Q15M PRN; Protocol PRN Reason: per Hypoglycemia Standing Ord. Docusate Sodium (Docusate Sodium 100 Mg Capsule) 100 mg PO BID [facility] Last Admin: 08/16/21 07:37 Dose: 100 mg Documented by: TITI Fluticasone/Vilanterol (Fluticasone/Vilanterol 200/25 Blst.W.Dev) 1 puff INHALE RDAILY [facility] Last Admin: 08/16/21 08:00 Dose: 1 puff Documented by: PONCHO Gabapentin (Gabapentin 400 Mg Capsule) 400 mg PO BID [facility] Last Admin: 08/16/21 07:37 Dose: 400 mg Documented by: TITI Glucose (Glucose Gel 15 Gm Gel..Gram.) 15 gm PO Q15M PRN; Protocol PRN Reason: per Hypoglycemia Standing Ord. Sodium Chloride (Ns) 1,000 mls @ 100 mls/hr IVCONT .Q10H [facility] Last Admin: 08/16/21 06:23 Dose: 100 mls/hr Documented by: DOMINGA Insulin Glargine (Insulin Glargine,Hum.Rec.Anlog 100 Unit/Ml 10 Ml Vial) 36 unit SUBCUT BEDTIME [facility] Last Admin: 08/15/21 21:29 Dose: 36 unit Documented by: DOMINGA Insulin Human Lispro (Insulin Lispro 100 Unit/Ml 3 Ml Vial) 0 unit SUBCUT QIDACHS [facility]; Protocol Last Admin: 08/16/21 07:28 Dose: Not Given Documented by: TITI Non-Admin Reason: No Insulin Coverage Insulin Human Lispro (Insulin Lispro 100 Unit/Ml 3 Ml Vial) 6 unit SUBCUT QIDACHS [facility] Last Admin: 08/16/21 07:35 Dose: 6 unit Documented by: TITI Lidocaine (Lidocaine 4 % Patch Adh..Patch) 1 patch TRANSDERMA DAILY [facility]; Protocol Last Admin: 08/16/21 07:35 Dose: 1 patch Documented by: TITI Magnesium Hydroxide (Milk Of Magnesia 30 Ml Oral.Susp) 30 ml PO DAILY PRN PRN Reason: Constipation Morphine Sulfate (Morphine Sulfate 4 Mg/Ml Cartridge) 2 mg IVPUSH Q4H PRN; Protocol PRN Reason: Pain, Severe (Pain Scale 7-10) Last Admin: 08/16/21 07:36 Dose: 2 mg Documented by: TITI Oxycodone HCl (Oxycodone Hcl Immed Release 5 Mg Tablet) 5 mg PO Q6H PRN PRN Reason: Pain, Moderate (Pain Scale 4-6 Last Admin: 08/16/21 09:04 Dose: 5 mg Documented by: TITI Pharmacy Consult (Consult Rx Perform Med Rec) 1 each MISCELLANE ONCE PRN PRN Reason: Consult order Rivaroxaban (Rivaroxaban 20 Mg Tablet) 20 mg PO DAILY [facility] Last Admin: 08/16/21 07:37 Dose: 20 mg Documented by: TITI Sodium Chloride (0.9 % Sodium Chloride Flush 3 Ml Syringe) [address] [facility] Last Admin: 06/07/22 07:35 Dose: 3 ml Documented by: TITI Labs CBC & Chem 7: 08/16/21 05:49 08/16/21 05:49 Labs: Laboratory Results - last 24 hr 08/15/21 08/15/21 08/16/21 16:12 19:57 05:49 MCV 89.8 MCH 29.0 MCHC 32.4 RDW 12.8 Plt Count 159 L MPV 11.6 Absolute Nucleated RBC 0.000 Nucleated RBC % (auto) 0.0 Anion Gap Estim Creat Clear Calc Estimated GFR POC Glucose 127 H 180 H Random Glucose Calcium 08/16/21 08/16/21 08/16/21 05:49 07:19 10:52 MCV MCH MCHC RDW Plt Count MPV Absolute Nucleated RBC Nucleated RBC % (auto) Anion Gap 10 L Estim Creat Clear Calc 63.8 Estimated GFR > 60 POC Glucose 180 H 294 H Random Glucose 186 H Calcium 8.3 L Assessment and Plan (1) Syncope: Status: Acute Plan This is a 76 year old male with history of HTN, DM, COPD, presumed afib on xarelto who presents to the emergency department after fall found to have multiple rib fractures He apparently had a housing court case and was worried about not showing up but CM was able to defer the date for him Diabetes II with hypoglycemia at home patient reports BS on the am around 120, BS late night below 70 and as low as 20 Patient is 75/25 mix at baseline twice daily, likely bottoming out at night due to this discussed case with o/p endo Dr. ellis with rec to start Lantus 36 units at bedtime, add mealtime insulin at 6 units, and adjust sliding scale to start at 200. He did say that he doesn't Like Lantus and he has tried it before but i explained to him that he needs to adjust his regime and this was rec from endo follow POC closely Syncope. hypoglycemia vs orthostasis Patient states he passes out frequently especially at night.? Sometimes this occurs when going from sitting to standing, sometimes occurs at night which he thinks is associated with hypoglycemia denies history of seizures tele monitoring stop IVF has not been orthostatic no hypoglycemic episodes noted Left 9th and 10th rib fractures secondary to fall Imaging shows no evidence of pneumothorax incentive spirometry pain control, lidocaine patch p.r.n. breathing treatments COPD No acute exacerbation Continue home inhalers PAF, pt states he is on xarelto for stroke prevention EKG NSR Continue Xarelto Not on any rate control agent Hypertension Will hold lisinopril, Norvasc for orthostatic hypotension, restart when blood pressure stable Monitor blood pressure closely neuropathy continue gabapentin dvt ppx - xarelto Attending Dr. Jaocbs full code Continue hospitalization for treatment of hypoglycemia, medication management for this and pain management with IV pain medication for rib fractures Quality Stroke Does the patient have a stroke diagnosis?: No VTE Prior VTE?: No VTE Risk Level:: Medical - moderate - high VTE Device Contraindication: Treatment Not Indicated VTE Drug Contraindication: N/A - Med Ordered
[2021-08-16] MEDS: Insulin Lispro 100 UNIT/ML 3 ML VIAL SUBCUT ×2 (12:13→17:08)
--- NOTE | 2021-08-16 13:49 | MHC.CM.PN ---
spoke with monica reaves svp [employer] for [facility] their senior it assistant will explain that pt is in hospital and will ask for a delay in trail monica states that pt will net be evicted and his apt will be avalible when he is dcd ,she also explined that pt is a tbi and this process has been going on for a year they are also helping pt look for alternate housing
[2021-08-16 15:57] LABS: Glucose, Whole Blood 267 mg/dL (60-115)
[2021-08-16 20:32] LABS: Glucose, Whole Blood 175 mg/dL (60-115)
[2021-08-16] MEDS: Insulin Glargine,Hum.rec.anlog 100 UNIT/ML 10 ML VIAL 36 UNIT SUBCUT (21:09)
[2021-08-17] VITALS (9 sets, daily range): BP systolic 140–178; BP diastolic 60–92; PULSE 50–83; RESP 16–20; TEMP 36.2–36.7; O2SAT 89–98
[2021-08-17] MEDS: oxyCODONE HCl Immed Release 5 MG TABLET PO ×4 (00:32→19:27)
[2021-08-17 07:30] LABS: Glucose, Whole Blood 63 mg/dL (60-115)
[2021-08-17] MEDS: Gabapentin 400 MG CAPSULE PO ×2 (07:44→19:27)
[2021-08-17] MEDS: Rivaroxaban 20 MG TABLET PO (07:44)
[2021-08-17] MEDS: Acetaminophen 325 MG TABLET 650 MG PO (07:44)
[2021-08-17] MEDS: Docusate Sodium 100 MG CAPSULE PO ×2 (07:44→19:28)
[2021-08-17] MEDS: 0.9 % Sodium Chloride Flush 3 ML SYRINGE IVFLUSH ×3 (07:45→23:57)
[2021-08-17] MEDS: Albuterol/Iprat 2.5/0.5MG 3 ML AMPUL.NEB INHALE ×2 (07:55→23:31)
--- NOTE | 2021-08-17 07:55 | PC.NURSE ---
pt angry and resistive to care. dangle at bedside for breakfast. refussing bed alarm. medicated for pain. . given inhaler and updraft.
[2021-08-17] MEDS: Fluticasone/Vilanterol 200/25 BLST.W.DEV 1 PUFF INHALE (08:12)
[2021-08-17 10:11] LABS: Glucose, Whole Blood 121 mg/dL (60-115)
[2021-08-17 11:14] LABS: Glucose, Whole Blood 248 mg/dL (60-115)
--- NOTE | 2021-08-17 11:21 | HO.PM.IMPN ---
Subjective Subjective Date of Service: 08/17/21 Interval History: cc: falls, chest pain interval history: chest pain, sob Cardiovascular Cardiovascular: Reports no additional cardiovascular complaints Respiratory Respiratory: Reports no additional respiratory complaints Physical Exam Vital Signs: Vital Signs: Last Vital Signs Temp 97.4 F 08/17/21 11:19 Pulse 78 08/17/21 11:19 Resp 18 08/17/21 11:19 BP 167/73 H 08/17/21 11:19 Pulse Ox 92 08/17/21 11:19 O2 Del Method 08/17/21 11:19 O2 Flow Rate 2 08/17/21 11:19 BMI result Body Mass Index 27.3 General: AO X 3, no acute distress Resp: diminished bilateral, no accessory muscles used CVS: S1,S2,RRR GI: soft, non tender, non distended Neuro: motor grossly intact, alert Psych: appropriate affect, appropriate insight skin: echymosis around trunk Objective Data Active Medications Acetaminophen (Acetaminophen 325 Mg Tablet) 650 mg PO Q6H PRN PRN Reason: Pain, Mild (Pain Scale 1-3) Last Admin: 08/17/21 07:44 Dose: 650 mg Documented By: SARAHI Albuterol Sulfate (Albuterol Sulfate 90 Mcg 8 Gm Inhaler) 1 puff INHALE Q4H PRN PRN Reason: wheezing Albuterol/Ipratropium (Albuterol/Iprat 2.5/0.5mg 3 Ml Ampul.Neb) 3 ml INHALE Q4H PRN PRN Reason: Shortness of Breath Last Admin: 08/17/21 07:55 Dose: 3 ml Documented By: PONCHO Amlodipine Besylate (Amlodipine Besylate 10 Mg Tablet) 10 mg PO DAILY [facility]; Protocol Dextrose (Dextrose 50 % 25 Gm/50 Ml Syringe) 25 gm IVPUSH Q15M PRN; Protocol PRN Reason: per Hypoglycemia Standing Ord. Docusate Sodium (Docusate Sodium 100 Mg Capsule) 100 mg PO BID [facility] Last Admin: 08/17/21 07:44 Dose: 100 mg Documented By: SARAHI Fluticasone/Vilanterol (Fluticasone/Vilanterol 200/25 Blst.W.Dev) 1 puff INHALE RDAILY [facility] Last Admin: 08/17/21 08:12 Dose: 1 puff Documented By: PONCHO Gabapentin (Gabapentin 400 Mg Capsule) 400 mg PO BID [facility] Last Admin: 08/17/21 07:44 Dose: 400 mg Documented By: SARAHI Glucose (Glucose Gel 15 Gm Gel..Gram.) 15 gm PO Q15M PRN; Protocol PRN Reason: per Hypoglycemia Standing Ord. Insulin Glargine (Insulin Glargine,Hum.Rec.Anlog 100 Unit/Ml 10 Ml Vial) 30 unit SUBCUT BEDTIME [facility] Insulin Human Lispro (Insulin Lispro 100 Unit/Ml 3 Ml Vial) 0 unit SUBCUT QIDACHS [facility]; Protocol Last Admin: 08/17/21 07:21 Dose: Not Given Documented By: SARAHI Non-Admin Reason: No Insulin Coverage Insulin Human Lispro (Insulin Lispro 100 Unit/Ml 3 Ml Vial) 5 unit SUBCUT QIDACHS [facility] Lidocaine (Lidocaine 4 % Patch Adh..Patch) 1 patch TRANSDERMA DAILY [facility]; Protocol Last Admin: 08/17/21 07:50 Dose: Not Given Documented By: SARAHI Non-Admin Reason: Patient Refused Magnesium Hydroxide (Milk Of Magnesia 30 Ml Oral.Susp) 30 ml PO DAILY PRN PRN Reason: Constipation Morphine Sulfate (Morphine Sulfate 4 Mg/Ml Cartridge) 2 mg IVPUSH Q4H PRN; Protocol PRN Reason: Pain, Severe (Pain Scale 7-10) Last Admin: 08/16/21 21:21 Dose: 2 mg Documented By: DARNELL Oxycodone HCl (Oxycodone Hcl Immed Release 5 Mg Tablet) 5 mg PO Q6H PRN PRN Reason: Pain, Moderate (Pain Scale 4-6 Last Admin: 08/17/21 07:43 Dose: 5 mg Documented By: SARAHI Pharmacy Consult (Consult Rx Perform Med Rec) 1 each MISCELLANE ONCE PRN PRN Reason: Consult order Rivaroxaban (Rivaroxaban 20 Mg Tablet) 20 mg PO DAILY [facility] Last Admin: 08/17/21 07:44 Dose: 20 mg Documented By: SARAHI Sodium Chloride (0.9 % Sodium Chloride Flush 3 Ml Syringe) [facility] Last Admin: 08/17/21 07:45 Dose: 3 ml Documented By: SARAHI Labs CBC & Chem 7: 08/16/21 05:49 08/16/21 05:49 Labs: Laboratory Results - last 24 hr 08/16/21 08/16/21 08/17/21 15:42 20:26 07:19 POC Glucose 267 H 175 H 63 08/17/21 08/17/21 08:44 11:05 POC Glucose 121 H 248 H Assessment and Plan (1) Syncope: Status: Acute Plan This is a 76 year old male with history of HTN, DM, COPD, presumed afib on xarelto who presents to the emergency department after fall found to have multiple rib fractures He apparently had a housing court case and was worried about not showing up but CM was able to defer the date for him Diabetes II with hypoglycemia at home patient reports BS on the am around 120, BS late night below 70 and as low as 20 Patient is 75/25 mix at baseline twice daily, likely bottoming out at night due to this case was discussed with o/p endo Dr. ellis with rec to start Lantus 36 units at bedtime, add mealtime insulin at 6 units, and adjust sliding scale to start at 200. continues to have hypoglycemic episodes in AM, will decrease lantus further to 30units bedtime and mealtime bolus to 5 units plus correction follow POC closely Syncope. hypoglycemia vs orthostasis Patient states he passes out frequently especially at night.? Sometimes this occurs when going from sitting to standing, sometimes occurs at night which he thinks is associated with hypoglycemia denies history of seizures tele monitoring has not been orthostatic acute hpyoxic respiratory failure due to atelectasis from poor inspiratory effort due to pain from left 9th and 10th rib fractures in patient with COPD continue incentive spirometry, pain control, wean o2 as tolerated esvin morse repeat CXR Paroxysmal atrial fibrillation EKG NSR Continue Xarelto Hypertension bps meds were on hold out of concern for othrostatic hypotension bps now persistently elevated, will restart amlodipine, continue to monitor neuropathy continue gabapentin dvt ppx - xarelto full code Continue hospitalization for treatment of hypoglycemia, medication management for this and pain management and hypoxia Quality Stroke Does the patient have a stroke diagnosis?: No VTE Prior VTE?: No VTE Risk Level:: Medical - moderate - high VTE Device Contraindication: Treatment Not Indicated VTE Drug Contraindication: N/A - Med Ordered
[2021-08-17] MEDS: Insulin Lispro 100 UNIT/ML 3 ML VIAL SUBCUT ×4 (11:33→16:15)
[2021-08-17] MEDS: Morphine Sulfate 4 MG/ML CARTRIDGE 2 MG IVPUSH ×2 (11:37→21:42)
[2021-08-17] MEDS: Multivitamin TABLET 1 TAB PO (12:49)
[2021-08-17 15:43] LABS: Glucose, Whole Blood 249 mg/dL (60-115)
[2021-08-17 17:08] LABS: Anion Gap 12 (12-20); Blood Urea Nitrogen 18 mg/dL (9-16); Calcium 8.6 mg/dL (8.4-10.2); Carbon Dioxide 26 mmol/L (22-29); Chloride 101 mmol/L (96-108); Creatinine Clr Calc Pharmacy 60.8; Estimated Glomerular Filt Rate > 60; Glucose Random 287 mg/dL (60-115); Magnesium 1.9 mg/dL (1.6-2.6); Potassium 4.7 mmol/L (3.3-5.1); Sodium 134 mmol/L (135-145)
[2021-08-17] MEDS: Milk of Magnesia 30 ML ORAL.SUSP PO (19:27)
[2021-08-17] MEDS: Insulin Glargine,Hum.rec.anlog 100 UNIT/ML 10 ML VIAL 30 UNIT SUBCUT (19:28)
[2021-08-17 19:40] LABS: Glucose, Whole Blood 157 mg/dL (60-115)
[2021-08-17 21:57] LABS: Glucose, Whole Blood 131 mg/dL (60-115)
--- NOTE | 2021-08-17 22:54 | PC.NURSE ---
Called Respiratory therapy for nebulizer treatment. RT states is in ED will come up after Patient made aware.
--- NOTE | 2021-08-17 23:04 | PC.NURSE ---
ice pack to patients left upper back / flank area for c/o pain
[2021-08-18] VITALS (8 sets, daily range): BP systolic 115–175; BP diastolic 52–82; PULSE 59–80; RESP 18; TEMP 36.3–36.7; O2SAT 89–98
[2021-08-18 05:44] LABS: Hematocrit 39.3 % (42.0-52.0); Hemoglobin 12.8 g/dl (14.0-18.0); Mean Corpuscular HGB Conc 32.6 g/dl (31.0-36.0); Mean Corpuscular Hemoglobin 28.4 pg (27.0-33.0); Mean Corpuscular Volume 87.3 fL (80.0-98.0); Mean Platelet Volume 11.6 fL (9.4-12.4); Platelet Count 190 X10*3/uL (160-400); Red Cell Distribution Width 12.6 % (11.0-16.0); White Blood Count 9.7 X10*3/uL (4.8-10.8)
[2021-08-18 05:58] LABS: Anion Gap 10 (12-20); Blood Urea Nitrogen 17 mg/dL (9-16); Calcium 8.8 mg/dL (8.4-10.2); Carbon Dioxide 29 mmol/L (22-29); Chloride 101 mmol/L (96-108); Creatinine Clr Calc Pharmacy 74.9; Estimated Glomerular Filt Rate > 60; Glucose Fasting 141 mg/dL (60-99); Potassium 4.4 mmol/L (3.3-5.1); Sodium 136 mmol/L (135-145)
--- NOTE | 2021-08-18 07:00 | CA_ITS ---
Transthoracic Echocardiogram Patient (Last, First, Middle): Jayson Ludwig, Gender: Male Date of : 1945 Age: 76 Procedure Date: 08/18/2021 Procedure Type: Transthoracic Echocardiogram [place] [facility] [place]: 170.18 cm Weight: 79.38 kg BSA: 1.91 m2 Heart Rate: bpm BP: 126 / 52 mmHg Job Coaching: TO/YR Referring MD: Dannie Kunz MD Symptoms: effusion, bigeminy Study Quality: Technically Difficult ECG Rhythm: Sinus, PVCs Conclusions: - The left ventricular systolic function is normal. The visually estimated ejection fraction is between 55-60%. - No obvious valvular pathology seen on this study. Findings Left Ventricle Normal left ventricular cavity size. There is normal left ventricular wall thickness. The left ventricular systolic function is normal. The visually estimated ejection fraction is between 55-60%. Regional wall motion abnormalities can not be excluded due to suboptimal endocardial definition. Diastolic function is normal for age. Right Ventricle Normal right ventricular cavity size and systolic function. Atria Both atria are normal in size. Aortic Valve There is mild calcification of the aortic valve. There is no aortic valve stenosis. There is no aortic valve regurgitation. Mitral Valve The mitral valve appears normal. There is no mitral valve regurgitation. There is no mitral valve stenosis. Pulmonic Valve The pulmonic valve is likely normal. Tricuspid Valve Normal tricuspid valve structure. There is no tricuspid valve regurgitation. Tricuspid regurgitation envelope is inadequate for calculation of right ventricular systolic pressure. Great Vessels The sinuses of valsalva, sino tubular ridge, and asc aorta are normal in size. Venous The inferior vena cava is normal in size and collapses greater than 50% with inspiration. Pericardium/Pleural There is no evidence of pericardial effusion. Prior Study Comparison No prior study available for comparison. Recommendations, Care & Conclusions No obvious valvular pathology seen on this study. Measurements 2D Linear Measurements IVSd: 0.82 0.6-0.9/0.6-1.0 cm LVIDd: 4.87 3.9-5.3/4.2-5.9 cm LVIDd Index: 2.55 2.4-3.2/2.2-3.1 cm/m2 LVIDs: 3.11 2.0-3.6 cm LVPWd: 0.91 0.7-1.1 cm LA Diam: 3.90 2.7-3.8/3.0-4.0 cm LAIDs Index: 2.04 1.5-2.3 cm/m2 LV Mass: 179.28 67-162/88-224 g LV Mass Index: 93.87 43-95/49-115 g/m2 LVOT Diam: 2.00 3.0+(-)1.3 cm Mitral Valve MV Pk E: 0.60 MV PK A: 0.61 MV Decel Time: 148.00 E/A: 1.00 E'Lateral: 11.10 E'Medial: 8.92 E/E' Med: 6.70 E/E' Lat: 5.40 PHT: 43.00 MVA PHT: 5.12 Decel [place]: 4.01 Aortic Valve AoV Pk Korey: 1.16 AoV Mn Korey: 0.76 AoV VTI: 0.23 AoV Pk Grad: 5.00 Aov Mn Grad: 3.00 NICK Cont.VTI: 1.70 LVOT LVOT Pk Korey: 0.65 LVOT Mn Korey: 0.40 LVOT VTI: 0.12 LVOT Pk Grad: 2.00 LVOT Mn Grad: 1.00 LVOT Diam: 2.00 LVOT Area: 3.14 Diastolic Function MV Pk E: 0.60 MV Pk A: 0.61 E/A: 1.00 E'Medial: 8.92 E/E' Med: 6.70 E' Laterial: 11.10 E/E' Lat: 5.40 Tricuspid Valve RA Press: 3.00 Great Vessels Aorta Ao Asc: 2.80 2.1-3.4 cm Updated in Other Vendor System with Status of Final Ramy Licea MD electronically signed on 08/18/2021 4:50:28 PM with status of Final
[2021-08-18 07:32] LABS: Glucose, Whole Blood 139 mg/dL (60-115)
[2021-08-18] MEDS: Rivaroxaban 20 MG TABLET PO (07:59)
[2021-08-18] MEDS: Insulin Lispro 100 UNIT/ML 3 ML VIAL SUBCUT ×4 (07:59→20:31)
[2021-08-18] MEDS: Multivitamin TABLET 1 TAB PO (08:00)
[2021-08-18] MEDS: Docusate Sodium 100 MG CAPSULE PO ×2 (08:00→20:32)
[2021-08-18] MEDS: oxyCODONE HCl Immed Release 5 MG TABLET PO ×3 (08:00→22:54)
[2021-08-18] MEDS: Gabapentin 400 MG CAPSULE PO ×2 (08:00→20:32)
[2021-08-18] MEDS: amLODIPine Besylate 10 MG TABLET PO (08:00)
[2021-08-18] MEDS: 0.9 % Sodium Chloride Flush 3 ML SYRINGE IVFLUSH ×3 (08:01→20:32)
[2021-08-18] MEDS: Fluticasone/Vilanterol 200/25 BLST.W.DEV 1 PUFF INHALE (08:21)
[2021-08-18 11:08] LABS: Glucose, Whole Blood 158 mg/dL (60-115)
--- NOTE | 2021-08-18 11:17 | HO.PM.IMPN ---
Subjective Subjective Date of Service: 08/18/21 Interval History: cc: falls interval history: sob, bigeminy ENT Ears, Nose, Mouth, and Throat: Reports system reviewed and no additional complaints, except as documented Cardiovascular Cardiovascular: Reports no additional cardiovascular complaints Physical Exam Vital Signs: Vital Signs: Last Vital Signs Temp 97.8 F 08/18/21 07:57 Pulse 78 08/18/21 08:30 Resp 18 08/18/21 08:30 BP 175/70 H 08/18/21 07:57 Pulse Ox 92 08/18/21 07:57 O2 Del Method 08/18/21 07:57 O2 Flow Rate 2 08/18/21 07:57 BMI result Body Mass Index 27.3 General: AO X 3, no acute distress Resp: diminished bilateral, no accessory muscles used CVS: S1,S2,RRR GI: soft, non tender, non distended Neuro: motor grossly intact, alert Psych: appropriate affect, appropriate insight skin: echymosis around trunk Objective Data Active Medications Acetaminophen (Acetaminophen 325 Mg Tablet) 650 mg PO Q6H PRN PRN Reason: Pain, Mild (Pain Scale 1-3) Last Admin: 08/17/21 07:44 Dose: 650 mg Documented By: SARAHI Albuterol Sulfate (Albuterol Sulfate 90 Mcg 8 Gm Inhaler) 1 puff INHALE Q4H PRN PRN Reason: wheezing Albuterol/Ipratropium (Albuterol/Iprat 2.5/0.5mg 3 Ml Ampul.Neb) 3 ml INHALE Q4H PRN PRN Reason: Shortness of Breath Last Admin: 08/17/21 23:31 Dose: 3 ml Documented By: NAMITA Amlodipine Besylate (Amlodipine Besylate 10 Mg Tablet) 10 mg PO DAILY [facility]; Protocol Last Admin: 08/18/21 08:00 Dose: 10 mg Documented By: PETROS Dextrose (Dextrose 50 % 25 Gm/50 Ml Syringe) 25 gm IVPUSH Q15M PRN; Protocol PRN Reason: per Hypoglycemia Standing Ord. Docusate Sodium (Docusate Sodium 100 Mg Capsule) 100 mg PO BID [facility] Last Admin: 08/18/21 08:00 Dose: 100 mg Documented By: PETROS Fluticasone/Vilanterol (Fluticasone/Vilanterol 200/25 Blst.W.Dev) 1 puff INHALE RDAILY [facility] Last Admin: 08/18/21 08:21 Dose: 1 puff Documented By: STEVEN Gabapentin (Gabapentin 400 Mg Capsule) 400 mg PO BID [facility] Last Admin: 08/18/21 08:00 Dose: 400 mg Documented By: PETROS Glucose (Glucose Gel 15 Gm Gel..Gram.) 15 gm PO Q15M PRN; Protocol PRN Reason: per Hypoglycemia Standing Ord. Insulin Glargine (Insulin Glargine,Hum.Rec.Anlog 100 Unit/Ml 10 Ml Vial) 30 unit SUBCUT BEDTIME [facility] Last Admin: 08/17/21 19:28 Dose: 30 unit Documented By: MEAGAN Insulin Human Lispro (Insulin Lispro 100 Unit/Ml 3 Ml Vial) 0 unit SUBCUT QIDACHS [facility]; Protocol Last Admin: 08/18/21 07:37 Dose: Not Given Documented By: PETROS Non-Admin Reason: No Insulin Coverage Insulin Human Lispro (Insulin Lispro 100 Unit/Ml 3 Ml Vial) 5 unit SUBCUT QIDACHS [facility] Last Admin: 08/18/21 07:59 Dose: 5 unit Documented By: PETROS Lidocaine (Lidocaine 4 % Patch Adh..Patch) 1 patch TRANSDERMA DAILY [facility]; Protocol Last Admin: 08/18/21 08:05 Dose: Not Given Documented By: PETROS Non-Admin Reason: Patient Refused Magnesium Hydroxide (Milk Of Magnesia 30 Ml Oral.Susp) 30 ml PO DAILY PRN PRN Reason: Constipation Last Admin: 08/17/21 19:27 Dose: 30 ml Documented By: MEAGAN Morphine Sulfate (Morphine Sulfate 4 Mg/Ml Cartridge) 2 mg IVPUSH Q4H PRN; Protocol PRN Reason: Pain, Severe (Pain Scale 7-10) Last Admin: 08/17/21 21:42 Dose: 2 mg Documented By: MEAGAN Multivitamins/Vitamin C (Multivitamin Tablet) 1 tab PO DAILY [facility] Last Admin: 08/18/21 08:00 Dose: 1 tab Documented By: PETROS Oxycodone HCl (Oxycodone Hcl Immed Release 5 Mg Tablet) 5 mg PO Q6H PRN PRN Reason: Pain, Moderate (Pain Scale 4-6 Last Admin: 08/18/21 08:00 Dose: 5 mg Documented By: PETROS Pharmacy Consult (Consult Rx Perform Med Rec) 1 each MISCELLANE ONCE PRN PRN Reason: Consult order Rivaroxaban (Rivaroxaban 20 Mg Tablet) 20 mg PO DAILY [facility] Last Admin: 08/18/21 07:59 Dose: 20 mg Documented By: PETROS Sodium Chloride (0.9 % Sodium Chloride Flush 3 Ml Syringe) 3 ml IVFLUSH QSHIFT [facility] Last Admin: 08/18/21 08:01 Dose: 3 ml Documented By: PETROS Labs CBC & Chem 7: 08/18/21 05:21 08/18/21 05:21 Labs: Laboratory Results - last 24 hr 08/17/21 08/17/21 08/17/21 15:38 16:25 19:35 MCV MCH MCHC RDW Plt Count MPV Absolute Nucleated RBC Nucleated RBC % (auto) Anion Gap 12 Estim Creat Clear Calc 60.8 Estimated GFR > 60 POC Glucose 249 H 157 H Random Glucose 287 H D Fasting Glucose Calcium 8.6 Magnesium 1.9 08/17/21 08/18/21 08/18/21 21:52 05:21 05:21 MCV 87.3 MCH 28.4 MCHC 32.6 RDW 12.6 Plt Count 190 MPV 11.6 Absolute Nucleated RBC 0.000 Nucleated RBC % (auto) 0.0 Anion Gap 10 L Estim Creat Clear Calc 74.9 Estimated GFR > 60 POC Glucose 131 H Random Glucose Fasting Glucose 141 H Calcium 8.8 Magnesium 08/18/21 08/18/21 07:27 11:02 MCV MCH MCHC RDW Plt Count MPV Absolute Nucleated RBC Nucleated RBC % (auto) Anion Gap Estim Creat Clear Calc Estimated GFR POC Glucose 139 H 158 H Random Glucose Fasting Glucose Calcium Magnesium Assessment and Plan (1) Syncope: Status: Acute Plan This is a 76 year old male with history of HTN, DM, COPD, presumed afib on xarelto who presents to the emergency department after fall found to have multiple rib fractures He apparently had a housing court case and was worried about not showing up but CM was able to defer the date for him Diabetes II with hypoglycemia at home patient reports BS on the am around 120, BS late night below 70 and as low as 20 Patient is 75/25 mix at baseline twice daily, likely bottoming out at night due to this now on lantus 30 units bedtime and lispro 5 units premeal with correction, improved pocs follow POC closely Syncope. hypoglycemia vs orthostasis Patient states he passes out frequently especially at night.? Sometimes this occurs when going from sitting to standing, sometimes occurs at night which he thinks is associated with hypoglycemia denies history of seizures tele monitoring has not been orthostatic acute hpyoxic respiratory failure due to atelectasis from poor inspiratory effort due to pain from left 9th and 10th rib fractures in patient with COPD continue incentive spirometry, pain control, wean o2 as tolerated breo, nebs bigeminy check echo Paroxysmal atrial fibrillation EKG NSR Continue Xarelto Hypertension bps meds were on hold out of concern for othrostatic hypotension bps now persistently elevated, will restart amlodipine, continue to monitor neuropathy continue gabapentin dvt ppx - xarelto full code Continue hospitalization for pain management and hypoxia Quality Stroke Does the patient have a stroke diagnosis?: No VTE Prior VTE?: No VTE Risk Level:: Medical - moderate - high VTE Device Contraindication: Treatment Not Indicated VTE Drug Contraindication: N/A - Med Ordered
[2021-08-18] MEDS: Morphine Sulfate 4 MG/ML CARTRIDGE 2 MG IVPUSH ×2 (15:11→20:29)
[2021-08-18 16:12] LABS: Glucose, Whole Blood 171 mg/dL (60-115)
[2021-08-18 20:11] LABS: Glucose, Whole Blood 189 mg/dL (60-115)
[2021-08-18] MEDS: Insulin Glargine,Hum.rec.anlog 100 UNIT/ML 10 ML VIAL 30 UNIT SUBCUT (20:30)
[2021-08-18] MEDS: Acetaminophen 325 MG TABLET 650 MG PO (20:42)
[2021-08-19] MEDS: Morphine Sulfate 2 MG/ML CARTRIDGE IVPUSH ×2 (01:07→05:37)
[2021-08-19] MEDS: Albuterol/Iprat 2.5/0.5MG 3 ML AMPUL.NEB INHALE (03:02)
[2021-08-19 03:03] VITALS: PULSE 71; RESP 18; O2SAT 96
[2021-08-19 03:33] VITALS: BP 156/65; PULSE 68; RESP 18; TEMP 36.2; O2SAT 92
[2021-08-19] MEDS: oxyCODONE HCl Immed Release 5 MG TABLET PO ×2 (05:38→13:16)
[2021-08-19] MEDS: Acetaminophen 325 MG TABLET 650 MG PO (05:38)
[2021-08-19 06:37] LABS: Hemoglobin 12.7 g/dl (14.0-18.0); Mean Corpuscular HGB Conc 32.6 g/dl (31.0-36.0); Mean Corpuscular Hemoglobin 28.5 pg (27.0-33.0); Mean Corpuscular Volume 87.6 fL (80.0-98.0); Mean Platelet Volume 11.9 fL (9.4-12.4); Platelet Count 182 X10*3/uL (160-400); Red Blood Count 4.45 X10*6/uL (4.60-5.80); Red Cell Distribution Width 12.5 % (11.0-16.0); White Blood Count 8.2 X10*3/uL (4.8-10.8)
[2021-08-19 07:00] LABS: B Type Natriuretic Peptide 152 pg/mL (<100)
[2021-08-19 07:07] LABS: Anion Gap 11 (12-20); Blood Urea Nitrogen 18 mg/dL (9-16); Calcium 8.8 mg/dL (8.4-10.2); Carbon Dioxide 28 mmol/L (22-29); Chloride 102 mmol/L (96-108); Creatinine Clr Calc Pharmacy 73.2; Estimated Glomerular Filt Rate > 60; Glucose Fasting 155 mg/dL (60-99); Potassium 4.3 mmol/L (3.3-5.1); Sodium 137 mmol/L (135-145)
[2021-08-19 07:11] VITALS: BP 144/60; PULSE 74; RESP 20; TEMP 36.3; O2SAT 93
[2021-08-19 07:27] LABS: Glucose, Whole Blood 151 mg/dL (60-115)
[2021-08-19] MEDS: Rivaroxaban 20 MG TABLET PO (08:15)
[2021-08-19] MEDS: Insulin Lispro 100 UNIT/ML 3 ML VIAL SUBCUT ×3 (08:15→12:32)
[2021-08-19] MEDS: Docusate Sodium 100 MG CAPSULE PO (08:16)
[2021-08-19] MEDS: amLODIPine Besylate 10 MG TABLET PO (08:16)
[2021-08-19] MEDS: Multivitamin TABLET 1 TAB PO (08:16)
[2021-08-19] MEDS: 0.9 % Sodium Chloride Flush 3 ML SYRINGE IVFLUSH (08:17)
[2021-08-19] MEDS: Gabapentin 400 MG CAPSULE PO (08:17)
[2021-08-19] MEDS: Fluticasone/Vilanterol 200/25 BLST.W.DEV 1 PUFF INHALE (08:26)
[2021-08-19 11:12] LABS: Glucose, Whole Blood 241 mg/dL (60-115)
[2021-08-19 11:38] VITALS: PULSE 106; PULSE 73; PULSE 91; PULSE 98; O2SAT 85; O2SAT 86; O2SAT 88; O2SAT 93
--- NOTE | 2021-08-19 12:06 | P.DS_ITS ---
DS: Providers Provider Date of Service: 08/19/21 Date of admission: 08/14/21 15:58 Primary care physician: Unknown Physician DS: Diagnosis Discharge Diagnosis (1) Syncope: Status: Acute DS: Summary Hospital Course Hospital Course: from intial hpi: Chief Complaint: Falls, left rib pain This is a 76-year-old male with multiple medical problems who presents the emergency department after a fall.? Patient states that he has fallen approximately 10 times over the past 2 and half years.? He is a somewhat vague and disorganized historian.? On one hand he states that these falls typically happen when he goes from a sitting to standing position and on the other hand he reports that he frequently falls out of bed secondary to low blood sugars.? He also states that his blood sugar drops when he stands up.? He denies any dizziness, palpitations, chest pain or associated shortness of breath. He denies any history of seizures but thinks that he does have seizures.? He was morales- scanned in the emergency department and workup was notable for left 9th and 10th rib fractures.? Orthostatic vital signs were obtained and showed a drop from 140 systolic to 120 systolic when standing. hospital course: Patient was admitted for diabetes with hypoglycemia complicated by syncope with fall with multiple rib fractures leading to poor inspiratory are effort and atelectasis complicated by acute hypoxic respiratory failure. Patient was given oxygen and incentive spirometry, his pain was controlled with opiates. At time of discharge patient is still hypoxic at rest requiring 2 L, on exertion as requiring 4 L due to COPD and ongoing decreased inspiratory effort from pain. Patient's insulin has been decreased, he was getting 30 units glargine and 5 units pre meal lispro and sugars significantly improved. At discharge she will be on 20 units b.i.d. of his 75/25. patient was noted to have frequent PVCs on telemetry, echocardiogram was unremarkable, he should follow up with Cardiology as outpatient for potential ischemic workup. First paroxysmal atrial fibrilla tion he will continue on Xarelto. For his hypertension he will continue amlodipine and lisinopril. Patient is feeling much better only discharged home. Time Spent with Patient Time attestation: Total time spent providing and/or coordinating discharge services: Discharge coordination time: Greater than 30 minutes Quality: Safe Use of Opioids Does Pt have an Active Cancer Diagnosis on the Problem List?: No Quality: Stroke Does the patient have a stroke diagnosis?: No Physical Exam Vital Signs: Vital Signs: Last Vital Signs Temp 97.4 F 08/19/21 07:11 Pulse 74 08/19/21 07:11 Resp 20 08/19/21 07:11 BP 144/60 H 08/19/21 07:11 Pulse Ox 93 08/19/21 07:11 O2 Del Method 08/19/21 07:11 O2 Flow Rate 2 08/19/21 07:11 BMI result Body Mass Index 27.3 General: AO X 3, no acute distress Resp: CTA bilateral, no accessory muscles used CVS: S1,S2,RRR GI: soft, non tender, non distended Neuro: motor grossly intact, alert Psych: appropriate affect, appropriate insight DS: Data Data Completed and Pending Labs on day of discharge: Laboratory Results - last 24 hr 08/18/21 08/18/21 08/19/21 16:06 20:08 06:23 WBC 8.2 RBC 4.45 L Hgb 12.7 L Hct 39.0 L MCV 87.6 MCH 28.5 MCHC 32.6 RDW 12.5 Plt Count 182 MPV 11.9 Absolute Nucleated RBC 0.000 Nucleated RBC % (auto) 0.0 Sodium Potassium Chloride Carbon Dioxide Anion Gap BUN Creatinine Estim Creat Clear Calc Estimated GFR POC Glucose 171 H 189 H Fasting Glucose Calcium B-Natriuretic Peptide 08/19/21 08/19/21 08/19/21 06:23 06:23 07:14 WBC RBC Hgb Hct MCV MCH MCHC RDW Plt Count MPV Absolute Nucleated RBC Nucleated RBC % (auto) Sodium 137 Potassium 4.3 Chloride 102 Carbon Dioxide 28 Anion Gap 11 L BUN 18 H Creatinine 0.88 Estim Creat Clear Calc 73.2 Estimated GFR > 60 POC Glucose 151 H Fasting Glucose 155 H Calcium 8.8 B-Natriuretic Peptide 152 H 08/19/21 11:07 WBC RBC Hgb Hct MCV MCH MCHC RDW Plt Count MPV Absolute Nucleated RBC Nucleated RBC % (auto) Sodium Potassium Chloride Carbon Dioxide Anion Gap BUN Creatinine Estim Creat Clear Calc Estimated GFR POC Glucose 241 H Fasting Glucose Calcium B-Natriuretic Peptide Discharge Plan Discharge Patient Disposition: Home Health Service Discharge Diagnosis: hypoglycemia, rib fractures, hypoxia Referrals: Ramy Licea MD [Physician] - 1 Week Physician,Unknown J [Primary Care Provider] - 1 Week Discharge Medications: New oxycodone 5 mg Tablet 5 mg PO Q6H PRN (Reason: Pain, Moderate (Pain Scale 4-6) Qty: 15 0RF Rx Instructions: Partial Fill upon patient request. Continued (DME) insulin syringe-needle U-100 [BD Insulin Syringe Ultra-Fine] 0.5 mL 30 gauge x 1/2 syringe See Rx Instructions .ROUTE .MEDSUPPLY Qty: 100 0RF Rx Instructions: Use daily (DME) compr.stocking,thigh,reg,large Misc See Rx Instructions .Route Qty: 2 0RF Rx Instructions: To use daily albuterol sulfate 90 mcg/actuation HFA aerosol inhaler 1 puff inhalation Q4H PRN (Reason: wheezing) Qty: 8.5 8RF amlodipine 10 mg tablet 10 mg PO DAILY Qty: 90 8RF budesonide-formoterol [Symbicort] 160-4.5 mcg/actuation HFA aerosol inhaler 2 puff inhalation BID Qty: 10.2 8RF Xarelto 20 mg tablet 20 mg PO DAILY Qty: 90 8RF gabapentin 400 mg capsule 400 mg PO BID Qty: 180 8RF lisinopril 40 mg tablet 40 mg PO DAILY Qty: 90 8RF (DME) OneTouch Ultra Test Strip See Rx Instructions .ROUTE .MEDSUPPLY Qty: 100 8RF Rx Instructions: to check blood sugars three times a day (DME) lancets [OneTouch Delica Plus Lancet] 30 gauge misc See Rx Instructions .ROUTE .MEDSUPPLY Qty: 100 8RF Rx Instructions: As directed (DME) Wheel chair Kit See Rx Instructions .Route Qty: 1 0RF Rx Instructions: As directed aspirin [Adult Low Dose Aspirin] 81 mg tablet,delayed release (DR/EC) 81 mg PO DAILY Changed insulin lispro protamin-lispro 100 unit/mL (75-25) Insulin Pen 20 unit SUBCUT DAILY@1700 Qty: 15 0RF insulin lispro protamin-lispro 100 unit/mL (75-25) Insulin Pen 20 unit SUBCUT QAM Qty: 15 0RF Discharge Orders: Discharge Order (Routine); Ordered 08/19/21 Ordered By: Dannie Kunz Diet: advance to usual diet Activity on Discharge: As tolerated Stand Alone Forms: Patient Portal Discharge page Care Plan Goals: recovery, manage sugars, Health Concerns: frequent pvcs, low sugars, hypoxia from rib fractures Plan of Treatment: home o2, pain control, decrease insulin as prescribed, follow up with cardiology for frequent pvcs Assessment: see above
--- NOTE | 2021-08-19 12:38 | MHC.CM.PN ---
Patient has been medically cleared for dc to home today, with [facility]. A referral was made to Hugh VALDOVINOS, who according to Arabella @ this [facility] @ [phone], services several of this [facility] Residents; they have been notified of today's dc. Patient is going home with new O2 and CM discussed IMM in depth with Patient and the original has been given to him and a copy has been placed on the chart. Patient stated times 2 that he is not interested in appealing the dc. Patient's Friend Chad ([phone] or [phone]) will transport home around 5:15 PM today and RN is aware. TITUS has left 2 derailed messages for Karissa/[employer] for this [facility] @ [phone], providing her with the dc details and TITUS left a message for Arabella as well.
--- NOTE | 2021-08-19 13:38 | MHC.CM.PN ---
[facility] IS NOT IN CONTRACT WITH PATIENT'S INSURANCE. Patient will return home with [facility] instead.
--- NOTE | 2021-08-19 14:14 | P.F2F_ITS ---
Service Date Service Date: 08/19/21 Encounter Date of encounter: 08/19/21 Reasons for Services Signs and symptoms assessed: weakness Reason for intermediate: medication management, medication treatment and teach disease management Reason for physical therapy: home safety and mobility and therapeutic exercises Homebound: Leaving the home is medically contraindicated at this time without the asist of a device and/or another person due th the listed conditions above and below. Reason homebound: unsteady gait / fall risk Certification: Based on the above findings, I certify that this patient is confined to the home and needs intermittent intermediate care, physical therapy and/or speech therapy, or continues to need occupational therapy. The patient is under my care, and I have initiated the establishment of the plan of care. The patient will be followed by a physician who will periodically review the plan of care.
[2021-08-19 16:50] LABS: Glucose, Whole Blood 141 mg/dL (60-115)
== END 2021-08-19 17:47 | disposition home health service (06) | DRG 184 ==
LOC: HO.ED 15:00 → HO.EDOVER 16:11 → HO.IMC 17:41
PROVIDERS: Nurse Practitioner Acute Care; Admitting Provider Physician Assistant Medical; Emergency Provider Student in an Organized Health Care Education/Training Program; Visit Provider Internal Medicine
DX: S22.42XA Multiple fractures of ribs, left side, initial encounter for closed fracture (principal); J98.11 Atelectasis; I95.1 Orthostatic hypotension; J44.9 Chronic obstructive pulmonary disease, unspecified; E11.40 Type 2 diabetes mellitus with diabetic neuropathy, unspecified; R00.8 Other abnormalities of heart beat; Z20.822 Contact with and (suspected) exposure to COVID-19; E11.649 Type 2 diabetes mellitus with hypoglycemia without coma; I10 Essential (primary) hypertension; W18.30XA Fall on same level, unspecified, initial encounter; Z87.820 Personal history of traumatic brain injury; Z87.891 Personal history of nicotine dependence; Z79.4 Long term (current) use of insulin; Z79.01 Long term (current) use of anticoagulants; Z79.899 Other long term (current) drug therapy
CPT/HCPCS: 36415; 70450; 71045; 71260; 72125; 74177; 80048; 80053; 81001; 82077; 82947; 83605; 83735; 83880; 85025; 85027; 85610; 87635; 90471; 93005; 93306; 96361; 96374; 96375; 99285; J1885; J2270; Q9967

== ENCOUNTER → 2021-12-01 12:24 | Outpatient (BNVA) | payer MEDICARE, SELFPAY | PROVIDERS: PCP Internal Medicine; Referring Provider Internal Medicine; Visit Provider Internal Medicine Cardiovascular Disease | DX: I49.9 Cardiac arrhythmia, unspecified (principal) | CPT/HCPCS: 93005; 99202 ==

== ENCOUNTER 2022-10-02 14:24 | Outpatient (AMB) | payer MEDICARE, SELFPAY ==
--- NOTE | 2022-10-02 14:25 | A.OFFPC_ITS ---
Vital Signs 10/02/22 14:27 Height 5 ft 7 in Weight 133 lb 6 oz BMI 20.9 BP 120/60 Blood Pressure Location Lt brachial Position Sitting Pulse 66 Pulse Source Pulse Oximeter Pulse Oximetry (%) 99 Oxygen Delivery Method Room Air Intake Visit Reasons: [place]/5-2/-/Fall w/fractured neck Intake Note: Patient is here for hospital discharge follow up. Patient was discharged from [place] on 08/30/22. 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 per policy Accompanied by: Self / Same As Patient Allergies No Known Allergies Allergy (Verified 10/02/22 14:27) Medication List - Last Reconciled 10/03/22 by Yasir Pace MD albuterol sulfate 90 mcg/actuation 1 puff inhalation Q4H PRN amlodipine 10 mg PO DAILY blood sugar diagnostic ([employer] Ultra Test strips) to check blood sugars three times a day budesonide-formoterol 160-4.5 mcg/actuation (Symbicort) 2 puffs inhalation BID chair, wheel (Wheel chair) As directed compr.stocking,thigh,reg,large To use daily furosemide 10 mg (1/2 x 20 mg) PO QAM gabapentin 400 mg PO BID Gel mattress overlay (Mattress overlay, gel) As directed insulin lispro protamin-lispro 100 unit/mL (75-25) 20 units (0.2 mL) subcut DAILY@1700 insulin lispro protamin-lispro 100 unit/mL (75-25) 20 units (0.2 mL) subcut QAM insulin syringe-needle U-100 (BD Insulin Syringe Ultra-Fine) Use daily lancets ([employer] Delica Plus Lancet) As directed lisinopril 40 mg PO DAILY [mattress coil 6 inches i 6 inch coil mattress for a hospital bed; ] rivaroxaban (Xarelto) 20 mg PO DAILY venlafaxine ER (Effexor XR) 75 mg PO BEDTIME walker (Ultra-Light Rollator misc) with wheels, brakes and seat walker As directed Tobacco use date assessed: 06/15/22 Fall risk assessment: No Falls in past year Last assessed Fall Risk: 10/02/22 Dental Screening Dental Screen Date: 10/02/22 Did you have a dental visit in the last 12 months?: Yes Did you have a dental problem in the last 6 months where you did not have access to dental care?: No Was dental information given to patient?: Patient has dentist HPI [place]/5-/-/Fall w/fractured neck HPI Details had a cervical spine fracture three months ago; signed out AMA from rehab; refused neurosurgery advice for surgery; HT[facility] and [facility] Medical History COPD (chronic obstructive pulmonary disease) Diabetes mellitus with coincident hypertension HTN (hypertension) TBI (traumatic brain injury) Surgical History History of tonsillectomy Family History Mother No problems noted. Father No problems noted. Other Substance use disorder Social History Housing: Assisted Living Facility Housing Other:: [facility] [place] [facility] Do you presently have visiting nurse or other home services: No Alcohol intake: never Patient Tobacco Use Status: Former Tobacco user Quit Date: 2017 Tobacco use type: Cigarette Years Smoked: 40 e-Cigarette/Vaping Use: Never Used Second Hand Smoke Exposure: No service: No Current occupational status: unemployed Cognitive needs: Yes Hearing needs: No Vision needs: No Questionnaire Thrive Questionnaire Date Thrive assessed: 04/28/22 ALEX-7 AMB Questionnaire ALEX-7 Date ALEX - 7 assessed: 06/15/22 Source: Developed by Drs. James Villagomez, Hali Wright, Raulito Brooks and colleagues, with an educational francisca from [employer]. Review of Systems Const Denies chills, Denies fatigue, Denies headache(s) and Denies weight loss Eyes Denies change in vision, Denies diplopia and Denies eye pain ENT Denies vertigo, Denies dizziness, Denies headache(s) and Denies nasal discharge Card Denies chest pain, Denies rapid heart rate and Denies dyspnea on exertion Resp Denies chest congestion, Denies cough, Denies pain with cough and Denies dyspnea on exertion GI Denies abdominal pain, Denies hematochezia and Denies change in bowel habits Musc Denies myalgias, Denies arthralgias and Denies joint swelling Skin/Breast Denies lesions and Denies unusual bruising Neuro Denies vertigo, Denies dizziness, Denies headache(s) and Denies focal weakness Endo Denies fatigue Physical exam (Primary Care) Vital Signs: Last Vital Signs Pulse 66 10/02/22 14:27 BP 120/60 10/02/22 14:27 Pulse Ox 99 10/02/22 14:27 Oxygen Delivery Method Room Air 10/02/22 14:27 BMI result Body Mass Index 20.9 Tobacco/Smoking Status: Tobacco use Status Tobacco use date assessed 06/15/22 10/02/22 14:35 Patient Tobacco Use Status Former Tobacco user 10/02/22 14:35 Tobacco use type Cigarette 10/02/22 14:35 e-Cigarette/Vaping Use Never Used 10/02/22 14:35 Thrive Assessment: Date of Thrive Assessment Date Thrive assessed 04/28/22 10/02/22 14:35 Const General: cooperative, healthy appearing and no acute distress Orientation/consciousness: oriented to person, oriented to place and oriented to time HENMT Head: Yes normal to inspection, Yes normocephalic and Yes atraumatic Mouth: Normal oral and palatal mucosa present and tongue normal Throat: Yes posterior oropharynx normal and Yes uvula midline Eyes General: appearance normal, both eyes and all related structures Neck Neck: Yes normal visual inspection, Yes full ROM and Yes no lymphadenopathy Thyroid: Thyroid normal Carotids: normal carotid upstroke Chest Chest palpation & inspection: normal inspection of the chest Resp Effort & Inspection: normal respiratory effort and able to speak in complete sentences Auscultation: clear to auscultation bilaterally Cardio Jugular venous distension: no JVD Palpation: normal PMI Rate: regular rate Rhythm: regular rhythm Heart sounds: S1 normal heart sound present and S2 normal heart sound present GI Inspection: Yes normal to inspection Palpation (GI): Soft to palpation and No hepatosplenomegaly present Auscultation: normal bowel sounds General: Yes no CVA tenderness Back/Spine/Pelvis Back: no CVA tenderness Skin General skin exam: no rashes or lesions noted Neuro General: oriented to person, oriented to place and oriented to time Extrem General: Yes normal to inspection and Yes full ROM Assessment and Plan Assessment & Plan (1) Cervical spine fracture: Code(s): S12.9XXA - Fracture of neck, unspecified, initial encounter Plan: ref to neurosurgery (2) Diabetes mellitus with coincident hypertension: Code(s): E11.9 - Type 2 diabetes mellitus without complications; I10 - Essential (primary) hypertension Plan: check labs; stable (3) Hypertension: Code(s): I10 - Essential (primary) hypertension Plan: stable Orders: Referrals Neurosurgery Referral S12.9XXA - Fracture of neck, unspecified, initial encounter Coding Level of Care Code Est Pt Level 4 (88449) Diagnoses Cervical spine fracture S12.9XXA Diabetes mellitus with coincident hypertension E11.9; I10 Hypertension I10
[2022-10-02 14:27] VITALS: BP 120/60; PULSE 66; O2SAT 99; BMI 20.9
== END 2022-10-02 14:51 | disposition home or self-care (01) ==
PROVIDERS: PCP Internal Medicine; Visit Provider Internal Medicine
DX: E11.9 Type 2 diabetes mellitus without complications (principal); S12.9XXA Fracture of neck, unspecified, initial encounter; I10 Essential (primary) hypertension
CPT/HCPCS: 99214

== ENCOUNTER 2022-10-02 15:19 | Outpatient (REF) | payer MEDICARE, SELFPAY ==
[2022-10-02 15:38] LABS: MANUAL DIFF FLAG NO
[2022-10-02 17:51] LABS: Basophils Absolute Auto 0.1 X10*3/uL (0.0-0.2); Basophils Percent Auto 0.8 % (0-2); Eosinophils Absolute Auto 0.2 X10*3/uL (0.0-0.4); Eosinophils Percent Auto 1.9 % (0-4); Hematocrit 39.6 % (42.0-52.0); Hemoglobin 12.8 g/dl (14.0-18.0); Imm Gran Abs Auto 0.03 X10*3/uL (0.00-0.03); Imm Gran Pct Auto 0.4 % (0.0-0.4); Lymphocytes Absolute Auto 2.2 X10*3/uL (1.2-4.9); Lymphocytes Percent Auto 26.3 % (20-40); Mean Corpuscular HGB Conc 32.3 g/dl (31.0-36.0); Mean Corpuscular Hemoglobin 29.4 pg (27.0-33.0); Mean Corpuscular Volume 90.8 fL (80.0-98.0); Mean Platelet Volume 12.3 fL (9.4-12.4); Monocytes Absolute Auto 0.7 X10*3/uL (0.1-1.2); Monocytes Percent Auto 7.8 % (2-11); Neutrophils Absolute Auto 5.2 x10*3/uL (2.0-8.3); Neutrophils Percent Auto 62.8 % (45-73); Platelet Count 202 X10*3/uL (160-400); Red Blood Count 4.36 X10*6/uL (4.60-5.80); Red Cell Distribution Width 12.8 % (11.0-16.0); White Blood Count 8.3 X10*3/uL (4.8-10.8)
[2022-10-02 17:59] LABS: Estimated Average Glucose 209 mg/dL; Hemoglobin A1c % 8.9 %
[2022-10-02 18:18] LABS: Alanine Aminotransferase 13 U/L (0-40); Albumin Level 4.3 g/dL (3.5-5.0); Alkaline Phosphatase 73 U/L (39-117); Anion Gap 12 (12-20); Aspartate Amino Transferase 13 U/L (5-37); Bilirubin Total 0.9 mg/dL (0.0-1.0); Blood Urea Nitrogen 23 mg/dL (9-16); Calcium 9.6 mg/dL (8.4-10.2); Carbon Dioxide 28 mmol/L (22-29); Chloride 104 mmol/L (96-108); Estimated Glomerular Filt Rate > 60; Glucose Fasting 68 mg/dL (60-99); Potassium 4.8 mmol/L (3.3-5.1); Sodium 139 mmol/L (135-145); Total Protein 7.1 g/dL (6.5-8.0)
== END 2022-10-02 15:20 | disposition home or self-care (01) ==
LOC: HO.LAB 15:19
PROVIDERS: PCP Internal Medicine; Visit Provider Internal Medicine
DX: N28.9 Disorder of kidney and ureter, unspecified (principal); D64.9 Anemia, unspecified; R73.9 Hyperglycemia, unspecified
CPT/HCPCS: 36415; 80053; 83036; 85025

== ENCOUNTER 2022-11-01 13:29 | Outpatient (AMB) | payer MEDICARE, SELFPAY ==
--- NOTE | 2022-11-01 13:40 | MHC.PC.OV ---
Vital Signs 11/01/22 13:42 Height 5 ft 7 in Weight 140 lb 8 oz BMI 22.0 BP 150/90 H Blood Pressure Location Lt brachial Position Sitting Pulse 78 Pulse Source Pulse Oximeter Pulse Oximetry (%) 96 Oxygen Delivery Method Room Air Intake Visit Reasons: med review/ need refills Intake Note: Patient is here to follow up on med review and refill. Patient was in [facility] recently and there was medication change. 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 Accompanied by: Self / Same As Patient Allergies No Known Allergies Allergy (Verified 11/01/22 13:42) Medication List - Last Reconciled 11/02/22 by Yasir Pace MD albuterol sulfate 90 mcg/actuation 1 puff inhalation Q4H PRN amlodipine 10 mg PO DAILY blood sugar diagnostic ([employer] Ultra Test strips) CHECK BLOOD SUGAR 3 TIMES DAILY budesonide-formoterol 160-4.5 mcg/actuation (Symbicort) 2 puffs inhalation BID chair, wheel (Wheel chair) As directed compr.stocking,thigh,reg,large To use daily flash glucose sensor ([employer]Style Calli 2 Sensor kit) As directed furosemide 10 mg (1/2 x 20 mg) PO QAM gabapentin 400 mg PO BID Gel mattress overlay (Mattress overlay, gel) As directed insulin glargine (Lantus U-100 Insulin) 15 units (0.15 mL) subcut ONCE insulin lispro protamin-lispro 100 unit/mL (75-25) 20 units (0.2 mL) subcut QAM insulin lispro protamin-lispro 100 unit/mL (75-25) 10 units subcutaneously 3 times a day; insulin syringe-needle U-100 (BD Insulin Syringe Ultra-Fine) Use daily lancets ([employer] Delica Plus Lancet) As directed lisinopril 40 mg PO DAILY [mattress coil 6 inches i 6 inch coil mattress for a hospital bed; ] rivaroxaban (Xarelto) 20 mg PO DAILY tramadol 50 mg PO Q8H PRN venlafaxine ER (Effexor XR) 75 mg PO BEDTIME walker (Ultra-Light Rollator misc) with wheels, brakes and seat walker As directed Tobacco use date assessed: 06/15/22 HPI med review/ need refills HPI Details has DM and needs refills; doing well [facility] Medical History COPD (chronic obstructive pulmonary disease) Diabetes mellitus with coincident hypertension HTN (hypertension) TBI (traumatic brain injury) Surgical History History of tonsillectomy Family History Mother No problems noted. Father No problems noted. Other Substance use disorder Social History Housing: Assisted Living Facility Housing Other:: [facility] Do you presently have visiting nurse or other home services: No Alcohol intake: never Patient Tobacco Use Status: Former Tobacco user Quit Date: 2017 Tobacco use type: Cigarette Years Smoked: 40 e-Cigarette/Vaping Use: Never Used Second Hand Smoke Exposure: No service: No Current occupational status: unemployed Cognitive needs: Yes Hearing needs: No Vision needs: No Questionnaire PHQ-9 Over the last 2 weeks, how often have you been bothered by any of the following problems? Depression Screening Interpretation: Negative Source: Developed by Drs. James Villagomez, Hali Wright, Raulito Brooks and colleagues, with an educational francisca from [employer]. Thrive Questionnaire Date Thrive assessed: 04/28/22 ALEX-7 AMB Questionnaire ALEX-7 Date ALEX - 7 assessed: 06/15/22 Source: Developed by Hali Pham, Raulito Brooks and colleagues, with an educational francisca from [employer]. Review of Systems Const Denies chills, Denies headache(s) and Denies weight loss ENT Denies headache(s) Card Denies chest pain, Denies syncope, Denies irregular heart rhythm and Denies dyspnea Resp Denies chest congestion, Denies cough and Denies dyspnea GI Denies abdominal pain, Denies change in stool character, Denies nausea and Denies vomiting Musc Denies deformity and Denies joint swelling Neuro Denies syncope and Denies headache(s) Physical exam (Primary Care) Vital Signs: Last Vital Signs Pulse 78 11/01/22 13:42 BP 150/90 H 11/01/22 13:42 Pulse Ox 96 08/23/23 13:42 Oxygen Delivery Method Room Air 11/01/22 13:42 BMI result Body Mass Index 22.0 Tobacco/Smoking Status: Tobacco use Status Tobacco use date assessed 06/15/22 11/01/22 13:48 Patient Tobacco Use Status Former Tobacco user 11/01/22 13:48 Tobacco use type Cigarette 11/01/22 13:48 e-Cigarette/Vaping Use Never Used 11/01/22 13:48 Depression Screening Interpretation: Negative Thrive Assessment: Date of Thrive Assessment Date Thrive assessed 04/28/22 11/01/22 13:48 Const General: cooperative, comfortable and no acute distress Resp Effort & Inspection: normal respiratory effort Auscultation: clear to auscultation bilaterally Percussion: percussion normal Cardio Jugular venous distension: no JVD Rate: regular rate Rhythm: regular rhythm Skin Other: healing scalp laceration Extrem Other: extensive vv both lower extrem Assessment and Plan Assessment & Plan (1) Diabetes mellitus with coincident hypertension: Code(s): E11.9 - Type 2 diabetes mellitus without complications; I10 - Essential (primary) hypertension Plan: stable; same rx Medications: New insulin glargine (Lantus U-100 Insulin) 15 units (0.15 mL) subcut ONCE 10 mL 5RF Changed From insulin lispro protamin-lispro 100 unit/mL (75-25) 20 units (0.2 mL) subcut DAILY@1700 15 mL 7RF To insulin lispro protamin-lispro 100 unit/mL (75-25) 10 units subcutaneously 3 times a day; 15 mL 7RF Refilled insulin syringe-needle U-100 (BD Insulin Syringe Ultra-Fine) Use daily 100 ea 8RF E11.9 - Type 2 diabetes mellitus without complications, I10 - Essential (primary) hypertension Coding Level of Care Code Est Pt Level 3 (11161) Diagnoses Diabetes mellitus with coincident hypertension E11.9; I10
[2022-11-01 13:42] VITALS: BP 150/90; PULSE 78; O2SAT 96; BMI 22.0
== END 2022-11-01 14:01 | disposition home or self-care (01) ==
PROVIDERS: PCP Internal Medicine; Visit Provider Internal Medicine
DX: E11.9 Type 2 diabetes mellitus without complications (principal); I10 Essential (primary) hypertension
CPT/HCPCS: 99213

== ENCOUNTER 2022-12-05 11:10 | Outpatient (AMB) | payer MEDICARE, SELFPAY ==
[2022-12-05 11:14] VITALS: BP 110/50; PULSE 63; O2SAT 98; BMI 22.4
--- NOTE | 2022-12-05 11:14 | A.OFFPC_ITS ---
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 by: Self / Same As Patient Allergies No Known Allergies Allergy (Verified 12/05/22 11:15) Medication List - Last Reconciled 12/06/22 by Yasir Pace MD albuterol sulfate 90 mcg/actuation 1 puff inhalation Q4H PRN amlodipine 10 mg PO DAILY blood sugar diagnostic ([employer] ([employer]) Ultra Test strips) CHECK BLOOD SUGAR 3 TIMES DAILY budesonide-formoterol 160-4.5 mcg/actuation (Symbicort) 2 puffs inhalation BID chair, wheel (Wheel chair) As directed compr.stocking,thigh,reg,large To use daily flash glucose sensor ([employer] Calli 2 Sensor kit) As directed furosemide 10 mg (1/2 x 20 mg) PO QAM gabapentin 400 mg PO BID Gel mattress overlay (Mattress overlay, gel) As directed insulin glargine (Lantus U-100 Insulin) 15 units (0.15 mL) subcut ONCE insulin lispro protamin-lispro 100 unit/mL (75-25) 20 units (0.2 mL) subcut QAM insulin lispro protamin-lispro 100 unit/mL (75-25) 10 units subcutaneously 3 times a day; insulin syringe-needle U-100 (BD Insulin Syringe Ultra-Fine) Use daily lancets ([employer] (formerly [employer]) Delica Plus Lancet) As directed lisinopril 40 mg PO DAILY [mattress coil 6 inches i 6 inch coil mattress for a hospital bed; ] rivaroxaban (Xarelto) 20 mg PO DAILY tramadol 50 mg PO Q8H PRN venlafaxine ER (Effexor XR) 75 mg PO BEDTIME walker (Ultra-Light Rollator misc) with wheels, brakes and seat walker As directed Tobacco use date assessed: 06/15/22 Fall risk assessment: 2 + Falls in past year Last assessed Fall Risk: 12/05/22 Dental Screening Dental Screen Date: 12/05/22 Did you have a dental visit in the last 12 months?: No Did you have a dental problem in the last 6 months where you did not have access to dental care?: No Was dental information given to patient?: Patient has dentist HPI 2mth f/u HPI Details HTN COPD and DM; compliant with meds [facility] Medical History TBI (traumatic brain injury) HTN (hypertension) COPD (chronic obstructive pulmonary disease) Diabetes mellitus with coincident hypertension Surgical History History of tonsillectomy Family History Mother No problems noted. Father No problems noted. Other Substance use disorder Social History Housing: Assisted Living Facility Housing Other:: [facility] Do you presently have visiting nurse or other home services: No Alcohol intake: never Patient Tobacco Use Status: Former Tobacco user Quit Date: 2017 Tobacco use type: Cigarette Years Smoked: 40 e-Cigarette/Vaping Use: Never Used Second Hand Smoke Exposure: No service: No Current occupational status: unemployed Cognitive needs: Yes Hearing needs: No Vision needs: No Questionnaire PHQ-9 Over the last 2 weeks, how often have you been bothered by any of the following problems? 1. Little interest or pleasure in doing things: not at all 2. Feeling down, depressed, or hopeless: not at all 3. Trouble falling or staying asleep, or sleeping too much: not at all 4. Feeling tired or having little energy: not at all 5. Poor appetite or overeating: not at all 6. Feeling bad about yourself - or that you are a failure or have let yourself or your family down: not at all 7. Trouble concentrating on things, such as reading the newspaper or watching television: not at all 8. Moving or speaking so slowly that other people could have noticed. Or the opposite - being so fidgety or restless that you have been moving around a lot more than usual: not at all 9. Thoughts that you would be better off or of hurting yourself in some way: not at all Total score: 0 Depression Screening Interpretation: Negative Source: Developed by Drs. James Villagomez, Hali Wright, Raulito Brooks and colleagues, with an educational francisca from [employer]. Thrive Questionnaire Date Thrive assessed: 04/28/22 AUDIT C Alcohol Use Questionnaire (AUDIT-C) 1. How often do you have a drink containing alcohol?: Never Total Score: 0 Score Reviewed/Action Taken: Yes ALEX-7 AMB Questionnaire ALEX-7 Date ALEX - 7 assessed: 06/15/22 Source: Developed by Drs. James Villagomez, Hali Wrihgt, Raulito Brooks and colleagues, with an educational francisca from [employer]. Review of Systems Const Denies chills, Denies headache(s) and Denies weight loss ENT Denies headache(s) Card Denies chest pain, Denies syncope, Denies irregular heart rhythm and Denies dyspnea Resp Denies chest congestion, Denies cough and Denies dyspnea GI Denies abdominal pain, Denies change in stool character, Denies nausea and Denies vomiting Musc Denies deformity and Denies joint swelling Neuro Denies syncope and Denies headache(s) Physical exam (Primary Care) Vital Signs: Last Vital Signs Pulse 63 12/05/22 11:14 BP 110/50 L 12/05/22 11:14 Pulse Ox 98 12/05/22 11:14 Oxygen Delivery Method Room Air 12/05/22 11:14 BMI result Body Mass Index 22.4 Tobacco/Smoking Status: Tobacco use Status Tobacco use date assessed 06/15/22 12/05/22 11:14 Patient Tobacco Use Status Former Tobacco user 12/05/22 11:14 Tobacco use type Cigarette 12/05/22 11:14 e-Cigarette/Vaping Use Never Used 12/05/22 11:14 PHQ-9: PHQ-9 Score PHQ-9: Total score 0 12/05/22 11:16 Depression Screening Interpretation: Negative Thrive Assessment: Date of Thrive Assessment Date Thrive assessed 04/28/22 12/05/22 11:14 Const General: cooperative, comfortable, no acute distress and alert Neck Neck: Yes no lymphadenopathy Thyroid: Thyroid normal Resp Effort & Inspection: normal respiratory effort Auscultation: clear to auscultation bilaterally Percussion: percussion normal Cardio Jugular venous distension: no JVD Palpation: normal PMI Rate: regular rate Rhythm: regular rhythm Heart sounds: S1 normal heart sound present and S2 normal heart sound present GI Inspection: Yes normal to inspection Palpation (GI): No hepatosplenomegaly present Skin General skin exam: no rashes or lesions noted Extrem General: Yes no clubbing, cyanosis or edema Assessment and Plan Assessment & Plan (1) Hypertension: Code(s): I10 - Essential (primary) hypertension Plan: stable; same rx (2) COPD (chronic obstructive pulmonary disease): Code(s): J44.9 - Chronic obstructive pulmonary disease, unspecified Plan: stable ;same rx (3) Diabetes mellitus with coincident hypertension: Code(s): E11.9 - Type 2 diabetes mellitus without complications; I10 - Essential (primary) hypertension Plan: due for labs; same rx Orders: Orders Hemoglobin A1c Today R73.9 - Hyperglycemia, unspecified Complete Blood Count Auto Diff Today D64.9 - Anemia, unspecified Lipid Panel Today E78.5 - Hyperlipidemia, unspecified Comprehensive [place]. Panel Fast Today N28.9 - Disorder of kidney and ureter, unspecified Medications: Refilled budesonide-formoterol 160-4.5 mcg/actuation (Symbicort) 2 puffs inhalation BID 10.2 grams 8RF insulin glargine (Lantus U-100 Insulin) 15 units (0.15 mL) subcut ONCE 10 mL 5RF tramadol 50 mg PO Q8H PRN 20 tabs 0RF pain compr.stocking,thigh,reg,large To use daily 2 ea 3RF budesonide-formoterol 160-4.5 mcg/actuation (Symbicort) 2 puffs inhalation BID 10.2 grams 8RF insulin lispro protamin-lispro 100 unit/mL (75-25) 10 units subcutaneously 3 times a day; 15 mL 7RF Coding Level of Care Code Est Pt Level 4 (36317) Diagnoses Hypertension I10 COPD (chronic obstructive pulmonary disease) J44.9 Diabetes mellitus with coincident hypertension E11.9; I10
== END 2022-12-05 11:41 | disposition home or self-care (01) ==
PROVIDERS: PCP Internal Medicine; Visit Provider Internal Medicine
DX: I10 Essential (primary) hypertension (principal); J44.9 Chronic obstructive pulmonary disease, unspecified; E11.9 Type 2 diabetes mellitus without complications
CPT/HCPCS: 99214

== ENCOUNTER 2023-01-15 18:27 | Emergency (ER) | payer MEDICARE, SELFPAY ==
--- NOTE | 2023-01-15 18:33 | ECG_ITS ---
Test Reason : CP Blood Pressure : / mmHG Vent. Rate : 068 BPM Atrial Rate : 068 BPM P-R Int : 194 ms QRS Dur : 086 ms QT Int : 390 ms P-R-T Axes : 067 -41 061 degrees QTc Int : 414 ms Normal sinus rhythm Low voltage QRS Left anterior fascicular block Abnormal ECG When compared with ECG of 14-AUG-2021 09:51, Premature ventricular complexes are no longer Present Referred By: Jose Antonio Cox Electronically Signed By:RICCARDO MONTENEGRO MD
[2023-01-15 18:50] VITALS: BP 145/55; BP 162/70; PULSE 68; PULSE 71; RESP 17; TEMP 36.6; O2SAT 96; O2SAT 97; BMI 23.0
--- NOTE | 2023-01-15 18:57 | ED.CHESTPAIN ---
HPI - Chest Pain General Chief Complaint: Chest Pain Stated Complaint: chest pain Time Seen by Provider: 01/15/23 18:44 Source: patient Mode of arrival: ambulatory Limitations: no limitations History of Present Illness HPI narrative: Patient 77-year-old with history of COPD AFib on Xarelto diabetes hypertension hyperlipidemia previous DVT multiple cervical fracture on [place] collar recently homeless for last 1 week was seen at [facility] earlier today for chest pain which is going on for months comes back here as still having the pain which is sharp in character lasting only for few sec patient is homeless and does not have any place to go patient was seen at [facility] yesterday for same reason labs were done on 01/14 which were stable Related Data Home Medications Medication Instructions Recorded Confirmed gabapentin 400 mg capsule 400 mg PO TID 01/15/23 01/15/23 insulin glargine 100 unit/mL 20 unit subcut BEDTIME 01/15/23 01/15/23 subcutaneous solution (Lantus U-100 Insulin) insulin lispro 100 unit/mL 20 unit subcut TIDAC 01/15/23 01/15/23 subcutaneous solution Previous Rx's Medication Instructions Recorded chair, wheel (Wheel chair) #1 ea 06/22/21 Gel mattress overlay (Mattress #1 ea 08/24/21 overlay, gel) amlodipine 10 mg tablet 10 mg PO DAILY #90 tabs 02/08/22 lisinopril 40 mg tablet 40 mg PO DAILY #90 tabs 02/13/22 walker #1 ea 04/07/22 walker (Ultra-Light Rollator misc) #1 ea 05/11/22 flash glucose sensor (FreeStyle #1 ea 10/04/22 Calli 2 Sensor kit) blood sugar diagnostic (Tybauch #300 strips 10/28/22 Ultra Test strips) insulin syringe-needle U-100 0.5 #100 ea 11/01/22 mL 30 gauge x 1/2 (BD Insulin Syringe Ultra-Fine) lancets 30 gauge (OneTouch Delica #100 ea 12/02/22 Plus Lancet) compr.stocking,thigh,reg,large #2 ea 12/05/22 diabetic shoes #1 ea 12/20/22 budesonide-formoterol HFA 160 2 puff inhalation BID #10.2 grams 12/30/22 mcg-4.5 mcg/actuation aerosol inhaler (Symbicort) albuterol sulfate 90 mcg/actuation 1 puff inhalation Q4H PRN wheezing 01/09/23 aerosol inhaler #8.5 grams rivaroxaban 20 mg tablet (Xarelto) 20 mg PO DAILY #90 tabs 01/09/23 Allergies Allergy/AdvReac Type Severity Reaction Status Date / Time No Known Allergies Allergy Verified 12/05/22 11:15 Review of Systems Review of Systems: Yes all other systems are reviewed and are negative [facility] Past Medical History Medical History TBI (traumatic brain injury) HTN (hypertension) COPD (chronic obstructive pulmonary disease) Diabetes mellitus with coincident hypertension Surgical History History of tonsillectomy Family History Family History Mother No problems noted. Father No problems noted. Other Substance use disorder Social History Social History Housing: Assisted Living Facility Housing Other:: [facility] Do you presently have visiting nurse or other home services: No Alcohol intake: never Patient Tobacco Use Status: Former Tobacco user Quit Date: 2017 Tobacco use type: Cigarette Years Smoked: 40 Smoked in Last 30 Days: No e-Cigarette/Vaping Use: Never Used Second Hand Smoke Exposure: No Use of substances other than those prescribed or required for medical reasons: No Advance Directives: No Advance Directives Information Provided: No service: No Current occupational status: unemployed Cognitive needs: Yes Hearing needs: No Vision needs: No Physical Exam Vital Signs: Vital Signs: Last Vital Signs Temp 97.4 F 01/16/23 00:22 Pulse 63 01/16/23 00:22 Resp 16 01/16/23 00:22 BP 105/53 L 01/16/23 00:22 Pulse Ox 93 01/16/23 00:22 O2 Del Method Room Air 01/16/23 00:22 BMI result Body Mass Index 23.0 Appearance: Alert. Oriented X3. No acute distress. Eyes: PERRLA, No Nystagmus ENT: Pharynx normal. Oral Mucosa moist Neck: In [place] collar CVS: Normal heart rate and rhythm. Pulses normal. Respiratory: No respiratory distress. Equal air entry bilateral, no wheezing/rales/rhonchi Abdomen: Soft and nontender. Bowel sounds are present, no mass palpable, no CVA tenderness Skin: Skin warm and dry. Normal skin color. Normal skin turgor. Extremities: 2+ lower extremity edema. Diffuse bilateral leg tenderness Neuro: Oriented X 3. No motor deficit. No sensory deficit.No cerebellar signs , cranial nerves II-XII intact Medications Administered Generic Name Dose Route Start Last Admin Trade Name Freq PRN Reason Stop Dose Admin Gabapentin 400 mg 01/15/23 23:15 01/16/23 00:25 Gabapentin 400 Mg Capsule PO 400 mg TID SOLO Administration Insulin Human Lispro 0 unit 01/15/23 22:00 01/15/23 23:56 Insulin Lispro 100 Unit/Ml 3 Ml Vial SUBCUT Not Given QIDACHS [facility] Protocol Discontinued Medications Generic Name Dose Route Start Last Admin Trade Name Freq PRN Reason Stop Dose Admin Insulin Glargine 15 unit 01/15/23 20:25 01/15/23 20:34 Insulin Glargine,Hum.Rec.Anlog 100 Unit/Ml 10 Ml Vial SUBCUT 01/15/23 20:26 15 unit ONCE ONE Administration Insulin Human Lispro 12 unit 01/15/23 20:23 01/15/23 20:34 Insulin Lispro 100 Unit/Ml 3 Ml Vial SUBCUT 01/15/23 20:24 12 unit ONCE ONE Administration Rivaroxaban 20 mg 01/15/23 23:10 01/15/23 23:57 Rivaroxaban 20 Mg Tablet PO 01/15/23 23:11 Not Given DAILY ONE Medical Decision Making Medical Decision Making [facility] Narrative: Patient with no significant active complaint looking for placement to sleep noncompliant to his medication on Xarelto for AFib and diabetic on insulin will get continuous pillowcase cutter involved for his patient was given Xarelto 15 mg in the ER and his insulin Differential Diagnosis Differential Diagnoses: The differential diagnosis associated with the presentation includes ACS/homeless Lab Data [facility] Lab Attestation statement: I reviewed the patient's lab results. Labs: Lab Results 01/15/23 01/15/23 Range/Units 19:38 19:46 POC Glucose 371 H* (60-115) mg/dL Troponin I High Sens 2.9 (<3.5-35.0) ng/L Independent Interpretation I performed an independent interpretation of an: EKG Interpretation: Normal sinus rhythm heart rate 68 beats per minute normal interval left axis no acute ST wave changes no acute ischemia External Record Review External record reviewed: Outside ED record Discharge Plan Discharge Clinical Impression: Atypical chest pain Patient Disposition: Home, Self-Care Instructions: Chest Pain (ED) Additional Instructions: Take your medications as prescribed and follow-up with your PCP Prescriptions: No Action (DME) Wheel chair Kit See Rx Instructions .Route Qty: 1 0RF Rx Instructions: As directed amlodipine 10 mg tablet 10 mg PO DAILY Qty: 90 8RF lisinopril 40 mg tablet 40 mg PO DAILY Qty: 90 8RF (DME) Ultra-Light Rollator Misc See Rx Instructions .Route Qty: 1 0RF Rx Instructions: with wheels, brakes and seat (DME) FreeStyle Calli 2 Sensor Kit See Rx Instructions .Route Qty: 1 0RF Rx Instructions: As directed (DME) OneTouch Ultra Test Strip See Rx Instructions .ROUTE .COMPLEX Qty: 300 3RF Dose Instruction: CHECK BLOOD SUGAR 3 TIMES DAILY Rx Instructions: CHECK BLOOD SUGAR 3 TIMES DAILY (DME) lancets [OneTouch Delica Plus Lancet] 30 gauge misc See Rx Instructions .ROUTE .MEDSUPPLY Qty: 100 8RF Rx Instructions: As directed (DME) diabetic shoes See Rx Instructions .Route .MEDSUPPLY Qty: 1 0RF Rx Instructions: As directed budesonide-formoterol [Symbicort] 160-4.5 mcg/actuation HFA aerosol inhaler 2 puff inhalation BID Qty: 10.2 8RF Xarelto 20 mg tablet 20 mg PO DAILY Qty: 90 8RF albuterol sulfate 90 mcg/actuation HFA aerosol inhaler 1 puff inhalation Q4H PRN (Reason: wheezing) Qty: 8.5 8RF insulin lispro 100 unit/mL solution 20 unit subcut TIDAC gabapentin 400 mg capsule 400 mg PO TID insulin glargine [Lantus U-100 Insulin] 100 unit/mL solution 20 unit subcut BEDTIME (DME) compr.stocking,thigh,reg,large Misc See Rx Instructions .Route Qty: 2 3RF Rx Instructions: To use daily (DME) Mattress overlay, gel Misc See Rx Instructions .Route Qty: 1 0RF Rx Instructions: As directed (DME) john Misc See Rx Instructions .Route Qty: 1 0RF Rx Instructions: As directed (DME) insulin syringe-needle U-100 [BD Insulin Syringe Ultra-Fine] 0.5 mL 30 gauge x 1/2 syringe See Rx Instructions .ROUTE .MEDSUPPLY Qty: 100 8RF Rx Instructions: Use daily
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
[2023-01-15 19:43] LABS: Glucose, Whole Blood 371 mg/dL (60-115)
[2023-01-15 20:11] LABS: Troponin-I High Sensitivity 2.9 ng/L (<3.5-35.0)
[2023-01-15 20:17] VITALS: BP 148/67; PULSE 72; RESP 12; TEMP 36.5; O2SAT 95
[2023-01-15] MEDS: Insulin Lispro 100 UNIT/ML 3 ML VIAL 12 UNIT SUBCUT (20:34)
[2023-01-15] MEDS: Insulin Glargine,Hum.rec.anlog 100 UNIT/ML 10 ML VIAL 15 UNIT SUBCUT (20:34)
--- NOTE | 2023-01-15 20:52 | PC.NURSE ---
pt ambulated with a steady even gait to/from the bathroom at this time. used personal walker. no apparent distress noted
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
--- NOTE | 2023-01-15 21:38 | PC.NURSE ---
this RN spoke with pt's LEAD PROGRAMMER ANALYST Valery, she reports that he has not been taking his blood thinner but is unsure for how long. she called 911 for pt today because of his unilateral leg pain was was worried about a blood clot d/t no med compliance.
--- NOTE | 2023-01-15 22:09 | PHA.MEDREC ---
Pharmacy Consult ? Medication Reconciliation Pharmacy has completed the medication reconciliation. Patient reported medications. Reports he has not had xarelto for 3 days. Reported insulin lipro 20 units before meals and lantus 20 units at bedtime. Ashley Steward, PharmD
--- NOTE | 2023-01-15 22:30 | PC.NURSE ---
report given to overflow RN
[2023-01-15 22:36] VITALS: BP 115/51; PULSE 64; RESP 14; TEMP 36.7; O2SAT 95
--- NOTE | 2023-01-15 22:36 | PC.NURSE ---
MD aware of VETERINARY LABORATORY TECHNICIAN concerns and assessed pt lower legs. no new orders at this time
[2023-01-16 00:22] VITALS: BP 105/53; PULSE 63; RESP 16; TEMP 36.3; O2SAT 93
[2023-01-16] MEDS: Gabapentin 400 MG CAPSULE PO ×4 (00:25→22:11)
--- NOTE | 2023-01-16 00:30 | PC.NURSE ---
Pt arrived to ED overflow from main ED at ~23:30. A&Ox4. Speech clear. Continues with c-collar that pt states he has been wearing at home. Denies acute complaints including chest pain. Xarelto not available in overflow pyxis; delivery from another unit requested and awaiting at this time. Pt given snacks and beverages. Educated on high fall risk safety measures and call aguirre. Call aguirre within reach.
[2023-01-16] MEDS: Rivaroxaban 15 MG TABLET PO (01:47)
[2023-01-16] MEDS: Acetaminophen 325 MG TABLET 975 MG PO (04:18)
[2023-01-16 05:45] VITALS: BP 130/60; PULSE 58; RESP 18; TEMP 36.4; O2SAT 93
[2023-01-16 07:21] LABS: Glucose, Whole Blood 232 mg/dL (60-115)
[2023-01-16 07:35] VITALS: BP 130/60; PULSE 58; O2SAT 93
[2023-01-16 08:51] LABS: Creatinine Clr Calc Pharmacy 57.6; Estimated Glomerular Filt Rate > 60
[2023-01-16] MEDS: Insulin Lispro 100 UNIT/ML 3 ML VIAL SUBCUT ×3 (09:00→22:12)
[2023-01-16] MEDS: Insulin Lispro 100 UNIT/ML 3 ML VIAL 20 UNIT SUBCUT (09:02)
[2023-01-16] MEDS: amLODIPine Besylate 10 MG TABLET PO (09:03)
[2023-01-16] MEDS: lisinopriL 40 MG TABLET PO (09:03)
[2023-01-16 09:05] VITALS: BP 125/51; PULSE 64; RESP 16; TEMP 36.2; O2SAT 93
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
[2023-01-16 10:13] LABS: Glucose, Whole Blood 233 mg/dL (60-115)
[2023-01-16 11:55] LABS: Glucose, Whole Blood 74 mg/dL (60-115)
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
[2023-01-16] MEDS: Acetaminophen 325 MG TABLET 650 MG PO (12:43)
[2023-01-16 12:50] LABS: Glucose, Whole Blood 110 mg/dL (60-115)
[2023-01-16 16:08] LABS: Glucose, Whole Blood 284 mg/dL (60-115)
--- NOTE | 2023-01-16 16:48 | PC.NURSE ---
Care assumed [id number]: Patient alert and oriented x 4 with tangential speech. Blood glucose dropped from 200's to 70's after morning insulin administration, noon insulin held and Yfn RESENDIZ notified. Repeat blood glucose improved to 110's after lunch. Patient complained of leg pain stating it was aching behind his knees and up to his groin due to his low blood sugar, Yfn RESENDIZ notified and x 1 dose of Tylenol given with good effect, see MAR. Denies chest pain or shortness of breath. Respirations appeared easy and unlabored. Tolerated diabetic diet well. Care handed off to Bridgett MARCELINO.
[2023-01-16 17:47] VITALS: BP 93/61; PULSE 69; RESP 17; TEMP 36.6; O2SAT 96
[2023-01-16] MEDS: Rivaroxaban 20 MG TABLET PO (19:02)
[2023-01-16 20:50] LABS: Glucose, Whole Blood 249 mg/dL (60-115)
[2023-01-16] MEDS: Insulin Glargine,Hum.rec.anlog 100 UNIT/ML 10 ML VIAL 20 UNIT SUBCUT (22:12)
[2023-01-17 00:04] VITALS: BP 117/81; PULSE 70; RESP 16; TEMP 36.1; O2SAT 95
[2023-01-17 06:19] VITALS: BP 118/63; PULSE 86; RESP 14; TEMP 36.1; O2SAT 96
--- NOTE | 2023-01-17 07:11 | PC.NURSE ---
PT reports he took his own BP medications at 0640 - lisinopril and amlodipine This RN educated pt on not taking his medications while in the hospital. PT stated he would not take his medications. Notified day shift RN. meds kept behind desk at this [facility]
[2023-01-17 07:16] LABS: Glucose, Whole Blood 217 mg/dL (60-115)
[2023-01-17] MEDS: Gabapentin 400 MG CAPSULE PO ×3 (08:01→20:43)
[2023-01-17] MEDS: Insulin Lispro 100 UNIT/ML 3 ML VIAL SUBCUT ×4 (08:03→20:43)
[2023-01-17 11:39] LABS: Glucose, Whole Blood 340 mg/dL (60-115)
[2023-01-17] MEDS: Acetaminophen 325 MG TABLET 650 MG PO (11:45)
--- NOTE | 2023-01-17 12:43 | PC.NURSE ---
pt reported 8/10 pain in right leg - gave tylenol per order for pain. 8u lispro given per sliding scale 340 BG. additional order for 20u subq held per Yareli RESENDIZ
--- NOTE | 2023-01-17 14:35 | MHC.CM.ED ---
Addendum entered by Sharmin Plaza 01/17/23 15:27: Received telephone call from Yareli at [facility]. She is patient's Nurse Navigator and can be reached via telephone at [phone]. Patient is agreeable to [facility]. [facility] has been asked to go for ins auth. Original Note: Patient remains in Er overflow. [facility] is only facility that is able to offer a bed at this time. Met with patient to discuss bed offer. Patient wants to discuss this with his [facility] Live Truck Operator and will get back to . Patient aware if he doesn't accept bed at [facility], might have to go as far as [place]. Continue to monitor for d/c needs.
[2023-01-17 14:50] LABS: Glucose, Whole Blood 217 mg/dL (60-115)
[2023-01-17 15:38] VITALS: BP 127/53; PULSE 69; RESP 17; TEMP 36.4; O2SAT 94
[2023-01-17 16:40] LABS: Glucose, Whole Blood 222 mg/dL (60-115)
[2023-01-17] MEDS: Rivaroxaban 20 MG TABLET PO (17:10)
--- NOTE | 2023-01-17 19:23 | PC.NURSE ---
Assumed patient care at 1500- Patient alert and oriented x3, cooperative. Ambulating in halls/bathroom. Denies pain, SOB, chest pain. Dinner POC 222, insulin given per EMAR. Patient ate 100% of dinner. All needs met.
[2023-01-17 20:06] VITALS: BP 107/53; PULSE 69; RESP 17; TEMP 36.3; O2SAT 97
[2023-01-17 20:20] LABS: Glucose, Whole Blood 296 mg/dL (60-115)
[2023-01-17] MEDS: Insulin Glargine,Hum.rec.anlog 100 UNIT/ML 10 ML VIAL 20 UNIT SUBCUT (20:41)
--- NOTE | 2023-01-17 20:46 | PC.NURSE ---
This magazine writer assumed care of this Pt at 1900. Pt A&Ox4, reports 7/10 pain to bilateral legs. Pt requested 15 units of Lantus states this is home much I take, I'm nervous because my sugar drops . Pt ambulating independent with steady gait. Pt has aspen collar in place.
--- NOTE | 2023-01-18 00:02 | PC.NURSE ---
Pt sitting in common area talking to other Pt.
--- NOTE | 2023-01-18 03:09 | PC.NURSE ---
Pt appears to be sleeping in recliner, even nonlabored RR.
--- NOTE | 2023-01-18 06:10 | PC.NURSE ---
Pt requesting POC, states I get nervous and don't want it to be low . POC 235.
[2023-01-18 06:11] LABS: Glucose, Whole Blood 235 mg/dL (60-115)
[2023-01-18 06:16] VITALS: BP 165/48; PULSE 62; RESP 15; TEMP 36.4; O2SAT 94
[2023-01-18 07:32] LABS: Glucose, Whole Blood 240 mg/dL (60-115)
[2023-01-18] MEDS: lisinopriL 40 MG TABLET PO (08:08)
[2023-01-18] MEDS: Gabapentin 400 MG CAPSULE PO ×2 (08:08→16:38)
[2023-01-18] MEDS: amLODIPine Besylate 10 MG TABLET PO (08:09)
[2023-01-18] MEDS: Insulin Lispro 100 UNIT/ML 3 ML VIAL 20 UNIT SUBCUT ×2 (08:12→12:13)
[2023-01-18] MEDS: Insulin Lispro 100 UNIT/ML 3 ML VIAL SUBCUT (08:13)
[2023-01-18 08:56] VITALS: BP 104/58; PULSE 73; RESP 18; O2SAT 96
--- NOTE | 2023-01-18 09:32 | MHC.CM.ED ---
Addendum entered by Sharmin Plaza 01/18/23 14:56: Insurance auth obtained. Patient can leave at 6pm. Brandon ROYAL booked. Med nec with chart. Patient, Nikki MARCELINO, and Janell RESENDIZ aware. Original Note: Patient remains in ER overflow. [facility] is in the process of obtaining insurance auth. Continue to monitor for d/c needs.
[2023-01-18 11:40] LABS: Glucose, Whole Blood 360 mg/dL (60-115)
--- NOTE | 2023-01-18 13:08 | PC.NURSE ---
afternoon POC 360, pt stated that he only wanted his scheduled 20u of insulin. refused coverage, said he functions better when his sugar is high.
--- NOTE | 2023-01-18 13:18 | PC.NURSE ---
pt's WIRE MACHINE OPERATOR Valery Salter ([phone]) visited and brought clothes for pt. he says that Valery just recently became his WIRE MACHINE OPERATOR.
[2023-01-18 14:00] VITALS: BP 98/41; PULSE 78; RESP 18; TEMP 36.7; O2SAT 96
[2023-01-18 16:46] LABS: Glucose, Whole Blood 103 mg/dL (60-115)
--- NOTE | 2023-01-18 17:36 | PC.NURSE ---
POC 103, no insulin coverage due. pt did not want scheduled 20u of insulin.
--- NOTE | 2023-01-18 18:38 | PC.NURSE ---
discharged via ambulance to [facility]. bag with medications returned, money retrieved from security on discharge.
== END 2023-01-18 18:38 | disposition skilled nursing facility (03) ==
PROVIDERS: Emergency Provider Internal Medicine; PCP Internal Medicine
DX: R07.89 Other chest pain (principal); R60.0 Localized edema; E11.9 Type 2 diabetes mellitus without complications; I10 Essential (primary) hypertension; E78.5 Hyperlipidemia, unspecified; I48.91 Unspecified atrial fibrillation; J44.9 Chronic obstructive pulmonary disease, unspecified; Z86.718 Personal history of other venous thrombosis and embolism; Z87.820 Personal history of traumatic brain injury; Z87.891 Personal history of nicotine dependence; Z59.00 Homelessness unspecified; Z91.148 Patient's other noncompliance with medication regimen for other reason
CPT/HCPCS: 36415; 82565; 82947; 84484; 93005; 97162; 99285

== ENCOUNTER 2023-02-07 13:33 | Emergency (ER) | payer MEDICARE, SELFPAY ==
--- NOTE | ~2023-02-07 | XR_ITS ---
EXAMINATION: XR CHEST CLINICAL INFORMATION: Chest pain COMPARISON: 08/17/2021. TECHNIQUE: 2 views of the chest were obtained. FINDINGS: Linear scar or atelectatic change observed at the left base. No dominant airspace consolidations or pneumothorax. Emphysematous change noted. Pulmonary vascularity appears to be stable. No distinct pleural effusion seen. There is thoracic spondylosis. XR/XR chest 2V IMPRESSION: Emphysematous change. No airspace consolidations. Linear scar or atelectasis at the left base.
--- NOTE | ~2023-02-07 | US_ITS ---
EXAMINATION: US VENOUS ULTRASOUND WITH DOPPLER LOWER EXTREMITY, BILATERAL CLINICAL INFORMATION: Bilateral lower extremity/calf pain COMPARISON: None available. TECHNIQUE: Ultrasound of the deep veins is performed from the hip to the calf with compression sonography and color and pulse Doppler assessment. Spectral analysis with color-flow imaging is performed. FINDINGS: RIGHT: There is normal venous compression and respiratory variation and augmented flow. The visualized common femoral vein, superficial femoral vein, profunda femoral vein, popliteal vein, and the trifurcation region shows no evidence of deep venous thrombosis. There is no significant popliteal fossa cyst. LEFT: There is normal venous compression and respiratory variation and augmented flow. The visualized common femoral vein, superficial femoral vein, profunda femoral vein, popliteal vein, and the trifurcation region shows no evidence of deep venous thrombosis. There is no significant popliteal fossa cyst. If the patient's symptoms persist, followup ultrasound in 5 days 7 days might be of value to exclude proximal propagation from a non-visualized calf vein. US/US venous duplex LE BI IMPRESSION: No DVT demonstrated in either lower extremity.
--- NOTE | 2023-02-07 13:52 | ED_ITS ---
HPI - General Adult General Chief complaint: General Medical Stated complaint: Blood clot (?) in leg, asthma/copd symptoms Time Seen by Provider: 02/07/23 23:41 Source: patient Mode of arrival: ambulatory History of Present Illness HPI narrative: This is a 77-year-old male who presents with complaints of bilateral lower extremity pain and swelling and as per the triage note it states that it this is been ongoing for 6 months. Patient states that he has recently signed himself out of [facility] because he did not like the facility, he states he cannot live with his friends because they are places to cluttered, and that he is currently homeless at this time. Patient is currently wearing a C-collar and states that he has a poorly healing cervical spine fracture that he is currently being followed at [facility]. In the triage note there is mention of shortness of breath and chest pain over the past few days, however patient denies any of the symptoms at this time. Related Data Home Medications Medication Instructions Recorded Confirmed gabapentin 400 mg capsule 400 mg PO TID 01/15/23 02/08/23 insulin glargine 100 unit/mL 20 unit subcut BEDTIME 01/15/23 02/08/23 subcutaneous solution (Lantus U-100 Insulin) insulin lispro 100 unit/mL See Rx Instructions .Route .COMPLEX 01/15/23 02/08/23 subcutaneous solution Previous Rx's Medication Instructions Recorded chair, wheel (Wheel chair) #1 ea 06/22/21 Gel mattress overlay (Mattress #1 ea 08/24/21 overlay, gel) amlodipine 10 mg tablet 10 mg PO DAILY #90 tabs 02/08/22 lisinopril 40 mg tablet 40 mg PO DAILY #90 tabs 02/13/22 walker #1 ea 04/07/22 walker (Ultra-Light Rollator misc) #1 ea 05/11/22 flash glucose sensor (FreeStyle #1 ea 10/04/22 Calli 2 Sensor kit) blood sugar diagnostic (PetroDEuch #300 strips 10/28/22 Ultra Test strips) insulin syringe-needle U-100 0.5 #100 ea 11/01/22 mL 30 gauge x 1/2 (BD Insulin Syringe Ultra-Fine) lancets 30 gauge (OneTouch Delica #100 ea 12/02/22 Plus Lancet) compr.stocking,thigh,reg,large #2 ea 12/05/22 diabetic shoes #1 ea 12/20/22 budesonide-formoterol HFA 160 2 puff inhalation BID #10.2 grams 12/30/22 mcg-4.5 mcg/actuation aerosol inhaler (Symbicort) albuterol sulfate 90 mcg/actuation 1 puff inhalation Q4H PRN wheezing 01/09/23 aerosol inhaler #8.5 grams rivaroxaban 20 mg tablet (Xarelto) 20 mg PO DAILY #90 tabs 01/09/23 Allergies Allergy/AdvReac Type Severity Reaction Status Date / Time No Known Allergies Allergy Verified 02/07/23 13:53 Review of Systems 2 Review of Systems: Pertinent positives and negatives as stated in [facility] Past Medical History Source: nursing notes reviewed Medical History TBI (traumatic brain injury) HTN (hypertension) COPD (chronic obstructive pulmonary disease) Diabetes mellitus with coincident hypertension Surgical History History of tonsillectomy Family History Family History Mother No problems noted. Father No problems noted. Other Substance use disorder Social History Social History Housing: Assisted Living Facility Housing Other:: [facility] Do you presently have visiting nurse or other home services: No Alcohol intake: never Comment: refused bed alarm Patient Tobacco Use Status: Former Tobacco user Quit Date: 2017 Tobacco use type: Cigarette Years Smoked: 40 Smoked in Last 30 Days: No e-Cigarette/Vaping Use: Never Used Second Hand Smoke Exposure: No Use of substances other than those prescribed or required for medical reasons: No Advance Directives: No Advance Directives Information Provided: No service: No Current occupational status: unemployed Cognitive needs: Yes Hearing needs: No Vision needs: No Physical Exam ED Vital Signs: Vital Signs - 24 hr 02/08/23 14:00 02/08/23 21:40 02/09/23 06:00 Temperature 97.2 F 98.0 F 98.3 F Pulse Rate 74 82 73 Respiratory Rate 18 16 14 Blood Pressure 140/65 H 158/66 H 156/79 H Pulse Oximetry 95 96 95 Oxygen Delivery Method Room Air Room Air Room Air 02/09/23 09:00 Temperature 98.7 F Pulse Rate 78 Respiratory Rate 20 Blood Pressure 139/72 Pulse Oximetry 95 Oxygen Delivery Method Room Air BMI result Body Mass Index 23.2 VITAL SIGNS: Reviewed. GENERAL: Well developed, well nourished, in no acute distress. HEAD: Normocephalic/atraumatic EYES: PERRLA, EOMI EARS: Ext canals without abnormality NOSE: Nares patent bilateral OROPHARYNX: no oral lesions noted, posterior pharynx clear NECK: C-collar in place, no midline cervical spine tenderness to palpation or step-offs. LUNGS: Normal breath sounds. No adventitious sounds or accessory muscle use. SpO2<98> CARDIOVASCULAR: Regular rate and rhythm without noted murmurs, no JVD or lower extremity edema. ABDOMEN: Soft, non-tender, non-distended with bowel sounds. MUSCULOSKELETAL: No tenderness, deformities, or effusions noted on gross inspection. EXTREMITIES: No cyanosis, clubbing or edema and there is no induration or erythema. SKIN: Inspection of the skin reveals no rashes NEUROLOGIC: Alert and oriented x 4. Strength and sensation to light touch were grossly intact x 4. Course Course Course Narrative: This is an RME: Additional HPI, ROS, PE not included below will be deferred to primary provider. This is a 19-[id number]-male, with a hx of TBI HTN, COPD, and DM,with a complaint of BL leg pain x 6 months, reporting concerns for blood clots. Currently in C- collar for c-spine fracture from fall many weeks ago. He states that he also has had SOB for the last several days. Also experiencing some chest pain Plan: Labs, ultrasound, EKG, chest x-ray Reevaluation(s) Reevaluation #1: [facility] via BLS at 2pm today. Medications Administered Generic Name Dose Route Start Last Admin Trade Name Freq PRN Reason Stop Dose Admin Amlodipine Besylate 10 mg 02/08/23 09:00 02/09/23 09:02 Amlodipine Besylate 10 Mg Tablet PO 10 mg DAILY SOLO Administration Protocol Fluticasone/Vilanterol 1 puff 02/09/23 08:00 02/09/23 08:16 Fluticasone/Vilanterol 200/25 Blst.W.Dev INHALE Not Given RDAILY [facility] Insulin Glargine 20 unit 02/08/23 01:15 02/08/23 21:12 Insulin Glargine,Hum.Rec.Anlog 100 Unit/Ml 10 Ml Vial SUBCUT Not Given BEDTIME [facility] Insulin Human Lispro 0 unit 02/08/23 13:06 02/09/23 12:18 Insulin Lispro 100 Unit/Ml 3 Ml Vial SUBCUT 10 unit QIDACHS [facility] Administration Protocol Lisinopril 40 mg 02/08/23 09:00 02/09/23 09:02 Lisinopril 40 Mg Tablet PO 40 mg DAILY [facility] Administration Protocol Rivaroxaban 20 mg 02/08/23 09:00 02/09/23 09:02 Rivaroxaban 20 Mg Tablet PO 20 mg DAILY [facility] Administration Discontinued Medications Generic Name Dose Route Start Last Admin Trade Name Freq PRN Reason Stop Dose Admin Insulin Human Lispro 20 unit 02/08/23 07:30 02/08/23 13:18 Insulin Lispro 100 Unit/Ml 3 Ml Vial SUBCUT Not Given TIDAC [facility] Medical Decision Making Medical Decision Making MDM Narrative: 77-year-old male with multiple medical complaints but primary seems to be that he is currently homeless secondary to not wanting to reside at [facility] or with his friends. Patient states that he has money to get a hotel room but is trying to find a better deal. We will rule out any evidence of infection, anemia or electrolyte derangements. I reviewed all investigations and hematologic indices are negative for leukocytosis or left shift and patient has a chronically stable normocytic anemia without thrombocytopenia. Coagulation studies are within normal limits. Ultrasound negative for DVT in either lower extremity and clinical findings would not suggest any DVT either. Chemistry indices demonstrate a hyperglycemia without evidence to suggest metabolic acidosis and no anion gap. Clinically patient does not appear to be in DKA or HHS and is noted to be resting comfortably. There is no evidence of AZEEM or potassium derangement. There is a mild elevation of the total bilirubin which he has had in the past but denies any abdominal pain. I sensitivity troponin is chronically detected but not elevated and BNP is within normal limits. Viral testing is negative for influenza/RSV/COVID. Chest x-ray negative for infiltrates and otherwise my interpretation is in agreement with radiology's impression. EKG does not demonstrate any STEMI or other concerning acute findings. My interpretation is that patient is seeking housing, he is otherwise medically cleared for further evaluation by case management and physical therapy. I will request records from [facility], specifically imaging studies as the last cervical spine imaging study from August of 2021 did not demonstrate any acute fractures of the C-spine. Patient is noted to be hyperglycemic and will perform a medication reconciliation so that patient receives all medications until he is further evaluated by case management and physical therapy. Patient placed in physician observation because the patient needed more time for evaluation by case management and physical therapy. At the time observation was started the patient's vital signs were stable, patient is alert and oriented, neuro: Nonfocal, CV RRR, lungs clear Differential Diagnosis Differential Diagnoses: The differential diagnosis associated with the presentation includes Please see the discussion above Admission/Observation Consideration of admission/observation: Escalation of care including admission/observation considered Please see the discussion above Consult Healthcare Provider Management of the patient was discussed with: Merchandising Lead Please see the discussion above Lab Data MDM Lab Attestation statement: I reviewed the patient's lab results. Please see the discussion above 02/07/23 14:50 02/07/23 14:50 Labs: Lab Results 02/07/23 02/08/23 02/08/23 Range/Units 14:50 01:29 06:05 WBC 6.1 (4.8-10.8) X10*3/uL RBC 4.46 L (4.60-5.80) X10*6/uL Hgb 13.3 L (14.0-18.0) g/dl Hct 39.1 L (42.0-52.0) % MCV 87.7 (80.0-98.0) fL MCH 29.8 (27.0-33.0) pg MCHC 34.0 (31.0-36.0) g/dl RDW 12.1 (11.0-16.0) % Plt Count 179 (160-400) X10*3/uL MPV 11.4 (9.4-12.4) fL Immature Gran % (Auto) 0.3 (0.0-0.4) % Neut % (Auto) 62.8 (45-73) % Lymph % (Auto) 25.5 (20-40) % [place] % (Auto) 8.9 (2-11) % Eos % (Auto) 1.5 (0-4) % Baso % (Auto) 1.0 (0-2) % Lymph # (Auto) 1.6 (1.2-4.9) X10*3/uL [place] # (Auto) 0.5 (0.1-1.2) X10*3/uL Eos # (Auto) 0.1 (0.0-0.4) X10*3/uL Baso # (Auto) 0.1 (0.0-0.2) X10*3/uL Abs Immat Gran (auto) 0.02 (0.00-0.03) X10*3/uL Absolute Neuts (auto) 3.8 (2.0-8.3) x10*3/uL Absolute Nucleated RBC 0.000 (0.0-0.012) X10*3/uL Nucleated RBC % (auto) 0.0 (0.0-0.2) /100WBC PT 11.8 (11.1-13.3) SEC INR 1.0 (0.9-1.1) APTT 29.1 (26.0-36.4) SEC Sodium 137 (135-145) mmol/L Potassium 4.3 (3.3-5.1) mmol/L Chloride 103 (96-108) mmol/L Carbon Dioxide 26 (22-29) mmol/L Anion Gap 12 (12-20) BUN 22 H (9-16) mg/dL Creatinine 1.15 (0.5-1.4) mg/dL Estim Creat Clear Calc 51.0 Estimated GFR > 60 POC Glucose 394 H* 261 H (60-115) mg/dL Random Glucose 443 H* (60-115) mg/dL Calcium 9.7 (8.4-10.2) mg/dL Total Bilirubin 1.7 H (0.0-1.0) mg/dL Direct Bilirubin 0.5 (0.0-0.5) mg/dL AST 15 (5-37) U/L ALT 16 (0-40) U/L Alkaline Phosphatase 85 (39-117) U/L Troponin I High Sens 4.5 D (<3.5-35.0) ng/L B-Natriuretic Peptide 53 (<100) pg/mL Total Protein 7.6 (6.5-8.0) g/dL Albumin 4.6 (3.5-5.0) g/dL Influenza Type A (PCR) NEGATIVE (Negative) Influenza Type B (PCR) NEGATIVE (Negative) RSV RNA Qual (PCR) NEGATIVE (Negative) SARS-CoV-2 RNA (RT-PCR) NEGATIVE (Negative) 02/08/23 02/08/23 02/08/23 Range/Units 07:06 09:01 12:41 WBC (4.8-10.8) X10*3/uL RBC (4.60-5.80) X10*6/uL Hgb (14.0-18.0) g/dl Hct (42.0-52.0) % MCV (80.0-98.0) fL MCH (27.0-33.0) pg MCHC (31.0-36.0) g/dl RDW (11.0-16.0) % Plt Count (160-400) X10*3/uL MPV (9.4-12.4) fL Immature Gran % (Auto) (0.0-0.4) % Neut % (Auto) (45-73) % Lymph % (Auto) (20-40) % [place] % (Auto) (2-11) % Eos % (Auto) (0-4) % Baso % (Auto) (0-2) % Lymph # (Auto) (1.2-4.9) X10*3/uL [place] # (Auto) (0.1-1.2) X10*3/uL Eos # (Auto) (0.0-0.4) X10*3/uL Baso # (Auto) (0.0-0.2) X10*3/uL Abs Immat Gran (auto) (0.00-0.03) X10*3/uL Absolute Neuts (auto) (2.0-8.3) x10*3/uL Absolute Nucleated RBC (0.0-0.012) X10*3/uL Nucleated RBC % (auto) (0.0-0.2) /100WBC PT (11.1-13.3) SEC INR (0.9-1.1) APTT (26.0-36.4) SEC Sodium (135-145) mmol/L Potassium (3.3-5.1) mmol/L Chloride (96-108) mmol/L Carbon Dioxide (22-29) mmol/L Anion Gap (12-20) BUN (9-16) mg/dL Creatinine (0.5-1.4) mg/dL Estim Creat Clear Calc Estimated GFR POC Glucose 218 H 206 H 295 H (60-115) mg/dL Random Glucose (60-115) mg/dL Calcium (8.4-10.2) mg/dL Total Bilirubin (0.0-1.0) mg/dL Direct Bilirubin (0.0-0.5) mg/dL AST (5-37) U/L ALT (0-40) U/L Alkaline Phosphatase (39-117) U/L Troponin I High Sens (<3.5-35.0) ng/L B-Natriuretic Peptide (<100) pg/mL Total Protein (6.5-8.0) g/dL Albumin (3.5-5.0) g/dL Influenza Type A (PCR) (Negative) Influenza Type B (PCR) (Negative) RSV RNA Qual (PCR) (Negative) SARS-CoV-2 RNA (RT-PCR) (Negative) 02/08/23 02/08/23 02/09/23 Range/Units 16:23 20:29 07:13 WBC (4.8-10.8) X10*3/uL RBC (4.60-5.80) X10*6/uL Hgb (14.0-18.0) g/dl Hct (42.0-52.0) % MCV (80.0-98.0) fL MCH (27.0-33.0) pg MCHC (31.0-36.0) g/dl RDW (11.0-16.0) % Plt Count (160-400) X10*3/uL MPV (9.4-12.4) fL Immature Gran % (Auto) (0.0-0.4) % Neut % (Auto) (45-73) % Lymph % (Auto) (20-40) % [place] % (Auto) (2-11) % Eos % (Auto) (0-4) % Baso % (Auto) (0-2) % Lymph # (Auto) (1.2-4.9) X10*3/uL [place] # (Auto) (0.1-1.2) X10*3/uL Eos # (Auto) (0.0-0.4) X10*3/uL Baso # (Auto) (0.0-0.2) X10*3/uL Abs Immat Gran (auto) (0.00-0.03) X10*3/uL Absolute Neuts (auto) (2.0-8.3) x10*3/uL Absolute Nucleated RBC (0.0-0.012) X10*3/uL Nucleated RBC % (auto) (0.0-0.2) /100WBC PT (11.1-13.3) SEC INR (0.9-1.1) APTT (26.0-36.4) SEC Sodium (135-145) mmol/L Potassium (3.3-5.1) mmol/L Chloride (96-108) mmol/L Carbon Dioxide (22-29) mmol/L Anion Gap (12-20) BUN (9-16) mg/dL Creatinine (0.5-1.4) mg/dL Estim Creat Clear Calc Estimated GFR POC Glucose 209 H 172 H 333 H (60-115) mg/dL Random Glucose (60-115) mg/dL Calcium (8.4-10.2) mg/dL Total Bilirubin (0.0-1.0) mg/dL Direct Bilirubin (0.0-0.5) mg/dL AST (5-37) U/L ALT (0-40) U/L Alkaline Phosphatase (39-117) U/L Troponin I High Sens (<3.5-35.0) ng/L B-Natriuretic Peptide (<100) pg/mL Total Protein (6.5-8.0) g/dL Albumin (3.5-5.0) g/dL Influenza Type A (PCR) (Negative) Influenza Type B (PCR) (Negative) RSV RNA Qual (PCR) (Negative) SARS-CoV-2 RNA (RT-PCR) (Negative) 02/09/23 Range/Units 11:28 WBC (4.8-10.8) X10*3/uL RBC (4.60-5.80) X10*6/uL Hgb (14.0-18.0) g/dl Hct (42.0-52.0) % MCV (80.0-98.0) fL MCH (27.0-33.0) pg MCHC (31.0-36.0) g/dl RDW (11.0-16.0) % Plt Count (160-400) X10*3/uL MPV (9.4-12.4) fL Immature Gran % (Auto) (0.0-0.4) % Neut % (Auto) (45-73) % Lymph % (Auto) (20-40) % [place] % (Auto) (2-11) % Eos % (Auto) (0-4) % Baso % (Auto) (0-2) % Lymph # (Auto) (1.2-4.9) X10*3/uL [place] # (Auto) (0.1-1.2) X10*3/uL Eos # (Auto) (0.0-0.4) X10*3/uL Baso # (Auto) (0.0-0.2) X10*3/uL Abs Immat Gran (auto) (0.00-0.03) X10*3/uL Absolute Neuts (auto) (2.0-8.3) x10*3/uL Absolute Nucleated RBC (0.0-0.012) X10*3/uL Nucleated RBC % (auto) (0.0-0.2) /100WBC PT (11.1-13.3) SEC INR (0.9-1.1) APTT (26.0-36.4) SEC Sodium (135-145) mmol/L Potassium (3.3-5.1) mmol/L Chloride (96-108) mmol/L Carbon Dioxide (22-29) mmol/L Anion Gap (12-20) BUN (9-16) mg/dL Creatinine (0.5-1.4) mg/dL Estim Creat Clear Calc Estimated GFR POC Glucose 355 H* (60-115) mg/dL Random Glucose (60-115) mg/dL Calcium (8.4-10.2) mg/dL Total Bilirubin (0.0-1.0) mg/dL Direct Bilirubin (0.0-0.5) mg/dL AST (5-37) U/L ALT (0-40) U/L Alkaline Phosphatase (39-117) U/L Troponin I High Sens (<3.5-35.0) ng/L B-Natriuretic Peptide (<100) pg/mL Total Protein (6.5-8.0) g/dL Albumin (3.5-5.0) g/dL Influenza Type A (PCR) (Negative) Influenza Type B (PCR) (Negative) RSV RNA Qual (PCR) (Negative) SARS-CoV-2 RNA (RT-PCR) (Negative) Independent Interpretation I performed an independent interpretation of an: EKG Interpretation: Normal sinus rhythm, HR-63, no STEMI, MT/QRS/QTC is within normal limits. Radiology Impression Discussion of test interpretation with radiology: I have reviewed the radiologist's reading. Radiologist Impression: Please see the discussion above External Record Review External record reviewed: Outpatient record, Prior outpatient labs and Prior outpatient radiology Chronic Conditions Patient?s care impacted by: Diabetes and Hypertension Critical Care Time Critical Care Time Critical Care Time: Yes Total Critical Care Time: 30 Attestation: I personally attest to this time spent taking care of the patient. Discharge Plan Discharge Clinical Impression: Bilateral leg pain Patient Disposition: Home, Self-Care Instructions: Leg Pain (ED) Additional Instructions: Take your medications as prescribed. If you were prescribed antibiotics today, it is important that you take your medication to their entirety, do not skip any doses, do not finish them early. Follow-up with your primary care provider this week. Return to the emergency department with new or worsening symptoms. Such as fevers, chills, chest pain, shortness of breath, nausea, vomiting, dizziness, headache, vision changes, lethargy In case of emergency call 911 [facility] via BLS at 2pm today. Prescriptions: No Action (DME) Wheel chair Kit See Rx Instructions .Route Qty: 1 0RF Rx Instructions: As directed amlodipine 10 mg tablet 10 mg PO DAILY Qty: 90 8RF lisinopril 40 mg tablet 40 mg PO DAILY Qty: 90 8RF (DME) Ultra-Light Rollator Misc See Rx Instructions .Route Qty: 1 0RF Rx Instructions: with wheels, brakes and seat (DME) [employer] Calli 2 Sensor Kit See Rx Instructions .Route Qty: 1 0RF Rx Instructions: As directed (DME) OneTouch Ultra Test Strip See Rx Instructions .ROUTE .COMPLEX Qty: 300 3RF Dose Instruction: CHECK BLOOD SUGAR 3 TIMES DAILY Rx Instructions: CHECK BLOOD SUGAR 3 TIMES DAILY (DME) lancets [OneTouch Delica Plus Lancet] 30 gauge misc See Rx Instructions .ROUTE .MEDSUPPLY Qty: 100 8RF Rx Instructions: As directed (DME) diabetic shoes See Rx Instructions .Route .MEDSUPPLY Qty: 1 0RF Rx Instructions: As directed budesonide-formoterol [Symbicort] 160-4.5 mcg/actuation HFA aerosol inhaler 2 puff inhalation BID Qty: 10.2 8RF Xarelto 20 mg tablet 20 mg PO DAILY Qty: 90 8RF albuterol sulfate 90 mcg/actuation HFA aerosol inhaler 1 puff inhalation Q4H PRN (Reason: wheezing) Qty: 8.5 8RF insulin lispro 100 unit/mL solution See Rx Instructions .ROUTE .COMPLEX Rx Instructions: SLIDING SCALE gabapentin 400 mg capsule 400 mg PO TID Patient Comments: Does not think this is the correct dose insulin glargine [Lantus U-100 Insulin] 100 unit/mL solution 20 unit subcut BEDTIME (DME) compr.stocking,thigh,reg,large Misc See Rx Instructions .Route Qty: 2 3RF Rx Instructions: To use daily (DME) Mattress overlay, gel Misc See Rx Instructions .Route Qty: 1 0RF Rx Instructions: As directed (DME) walker Misc See Rx Instructions .Route Qty: 1 0RF Rx Instructions: As directed (DME) insulin syringe-needle U-100 [BD Insulin Syringe Ultra-Fine] 0.5 mL 30 gauge x 1/2 syringe See Rx Instructions .ROUTE .MEDSUPPLY Qty: 100 8RF Rx Instructions: Use daily Referrals: [facility] [Other]
[2023-02-07 13:54] VITALS: BP 140/68; PULSE 74; RESP 17; TEMP 36.6; O2SAT 97; BMI 23.2
--- NOTE | 2023-02-07 13:57 | ECG_ITS ---
Test Reason : BLOOD CLOT Blood Pressure : / mmHG Vent. Rate : 063 BPM Atrial Rate : 063 BPM P-R Int : 200 ms QRS Dur : 080 ms QT Int : 386 ms P-R-T Axes : 103 -11 059 degrees QTc Int : 395 ms Normal sinus rhythm Low voltage QRS Borderline ECG When compared with ECG of 15-JAN-2023 19:00, No significant change was found Referred By: Anum Edgar Electronically Signed By:RICCARDO MONTENEGRO MD
[2023-02-07 14:57] LABS: MANUAL DIFF FLAG NO
[2023-02-07 15:03] LABS: Basophils Absolute Auto 0.1 X10*3/uL (0.0-0.2); Eosinophils Absolute Auto 0.1 X10*3/uL (0.0-0.4); Eosinophils Percent Auto 1.5 % (0-4); Hematocrit 39.1 % (42.0-52.0); Hemoglobin 13.3 g/dl (14.0-18.0); Imm Gran Abs Auto 0.02 X10*3/uL (0.00-0.03); Imm Gran Pct Auto 0.3 % (0.0-0.4); Lymphocytes Absolute Auto 1.6 X10*3/uL (1.2-4.9); Lymphocytes Percent Auto 25.5 % (20-40); Mean Corpuscular Hemoglobin 29.8 pg (27.0-33.0); Mean Corpuscular Volume 87.7 fL (80.0-98.0); Mean Platelet Volume 11.4 fL (9.4-12.4); Monocytes Absolute Auto 0.5 X10*3/uL (0.1-1.2); Monocytes Percent Auto 8.9 % (2-11); Neutrophils Absolute Auto 3.8 x10*3/uL (2.0-8.3); Neutrophils Percent Auto 62.8 % (45-73); Platelet Count 179 X10*3/uL (160-400); Red Blood Count 4.46 X10*6/uL (4.60-5.80); Red Cell Distribution Width 12.1 % (11.0-16.0); White Blood Count 6.1 X10*3/uL (4.8-10.8)
[2023-02-07 15:07] LABS: Prothrombin Time 11.8 SEC (11.1-13.3)
[2023-02-07 15:10] LABS: Partial Thromboplastin Time 29.1 SEC (26.0-36.4)
[2023-02-07 15:22] LABS: B Type Natriuretic Peptide 53 pg/mL (<100)
[2023-02-07 15:23] LABS: Alanine Aminotransferase 16 U/L (0-40); Albumin Level 4.6 g/dL (3.5-5.0); Alkaline Phosphatase 85 U/L (39-117); Anion Gap 12 (12-20); Aspartate Amino Transferase 15 U/L (5-37); Bilirubin Direct 0.5 mg/dL (0.0-0.5); Bilirubin Total 1.7 mg/dL (0.0-1.0); Blood Urea Nitrogen 22 mg/dL (9-16); Calcium 9.7 mg/dL (8.4-10.2); Carbon Dioxide 26 mmol/L (22-29); Chloride 103 mmol/L (96-108); Estimated Glomerular Filt Rate > 60; Glucose Random 443 mg/dL (60-115); Potassium 4.3 mmol/L (3.3-5.1); Sodium 137 mmol/L (135-145); Total Protein 7.6 g/dL (6.5-8.0)
[2023-02-07 15:25] LABS: Troponin-I High Sensitivity 4.5 ng/L (<3.5-35.0)
[2023-02-07 15:41] LABS: Influenza A PCR NEGATIVE (Negative); Influenza B PCR NEGATIVE (Negative); Resp Syncy Virus RNA Qual PCR NEGATIVE (Negative); SARS COV2 PCR INHOUSE NEGATIVE (Negative)
[2023-02-07 21:17] VITALS: BP 166/86; PULSE 76; RESP 18; TEMP 36.8; O2SAT 98
[2023-02-08 00:58] VITALS: BP 163/76; PULSE 65; RESP 15; TEMP 36.5; O2SAT 93
[2023-02-08 01:35] LABS: Glucose, Whole Blood 394 mg/dL (60-115)
[2023-02-08] MEDS: Insulin Glargine,Hum.rec.anlog 100 UNIT/ML 10 ML VIAL 20 UNIT SUBCUT (01:44)
--- NOTE | 2023-02-08 01:46 | PC.NURSE ---
POC noted to be 394, Dr Cassidy aware and patient will receive long acting insulin.
--- NOTE | 2023-02-08 03:24 | MHC.EDTECH ---
Pt refused being changed into Francisco Javier. Pt states Francisco Javier's are fucking stupid, I have never worn a Francisco Javier.
[2023-02-08 06:00] VITALS: BP 160/70; PULSE 57; RESP 18; TEMP 36.7; O2SAT 95
[2023-02-08 06:10] LABS: Glucose, Whole Blood 261 mg/dL (60-115)
[2023-02-08 07:09] LABS: Glucose, Whole Blood 218 mg/dL (60-115)
--- NOTE | 2023-02-08 08:18 | PC.NURSE ---
patient resting quietly in bed, respirations equal and unlabored. patient able to make needs known, call aguirre at bedside.
[2023-02-08 09:07] LABS: Glucose, Whole Blood 206 mg/dL (60-115)
--- NOTE | 2023-02-08 09:50 | PHA.MEDREC ---
Pharmacy Consult ? Medication Reconciliation Pharmacy has completed the medication reconciliation. Spoke to patient and he said he was taking 15units of lispro tid before and now they have him on a sliding scale which he doesnt like. Knew medications but said sometimes lantus causes him to bottom out but that was when he was taking 15 units tid
[2023-02-08 09:59] VITALS: BP 144/72; PULSE 80; RESP 18; O2SAT 95
[2023-02-08] MEDS: lisinopriL 40 MG TABLET PO (10:01)
[2023-02-08] MEDS: Rivaroxaban 20 MG TABLET PO (10:01)
[2023-02-08] MEDS: amLODIPine Besylate 10 MG TABLET PO (10:01)
[2023-02-08 12:45] LABS: Glucose, Whole Blood 295 mg/dL (60-115)
[2023-02-08] MEDS: Insulin Lispro 100 UNIT/ML 3 ML VIAL SUBCUT ×3 (13:12→21:11)
--- NOTE | 2023-02-08 13:59 | PC.NURSE ---
Patient transferred from main ED to overflow. Alert and oriented. No complaints. POC for lunch 295, insulin given per EMAR. Call aguirre within reach. All needs met.
[2023-02-08 14:00] VITALS: BP 140/65; PULSE 74; RESP 18; TEMP 36.2; O2SAT 95
[2023-02-08 16:27] LABS: Glucose, Whole Blood 209 mg/dL (60-115)
--- NOTE | 2023-02-08 18:41 | PC.NURSE ---
assumed care at 1500, pt walking with steady gait and rolling walker. offering no complaints. set up for dinner. call aguirre within reach, offering no complaints
--- NOTE | 2023-02-08 19:46 | PC.NURSE ---
I assumed care of the pt at 1900. Pt resting in bed at this time, complaining of 8/10 pain in his neck, which he states is always there. Pt does have a c-collar applied at this time. Pt is waiting rehab placement at this time.
[2023-02-08 20:33] LABS: Glucose, Whole Blood 172 mg/dL (60-115)
[2023-02-08 21:40] VITALS: BP 158/66; PULSE 82; RESP 16; TEMP 36.7; O2SAT 96
[2023-02-09 06:00] VITALS: BP 156/79; PULSE 73; RESP 14; TEMP 36.8; O2SAT 95
[2023-02-09 07:20] LABS: Glucose, Whole Blood 333 mg/dL (60-115)
[2023-02-09 09:00] VITALS: BP 139/72; PULSE 78; RESP 20; TEMP 37.1; O2SAT 95
[2023-02-09] MEDS: Insulin Lispro 100 UNIT/ML 3 ML VIAL SUBCUT ×2 (09:02→12:18)
[2023-02-09] MEDS: Rivaroxaban 20 MG TABLET PO (09:02)
[2023-02-09] MEDS: lisinopriL 40 MG TABLET PO (09:02)
[2023-02-09] MEDS: amLODIPine Besylate 10 MG TABLET PO (09:02)
--- NOTE | 2023-02-09 10:44 | MHC.CM.ED ---
Received case management consult. Patient was d/c'd from [facility] on 01/15 to [facility]. Patient left [facility] on 02/08 and returned to [facility]. Patient has been homeless. Patient has a [place] nurse navigator named Yareli that can be reached via telephone at [phone]. Yareli has been working with patient since December to try and find a new apartment. Patient has managed to self-sabotage every opporunity. Patient has an open law suit agains [employer]. None of their facilities will accept patient. Placement has been difficult to find in the past due to 4 facilities closing locally. Referral broadcasted at this time. [facility] in [facility] is the only facility that is willing to offer patient a bed. Met with patient to discuss this. Patient accepted bed and will go under [facility]. MDS completed, faxed to [facility] and [facility]. Patient can leave at 2pm. Brandon ROYAL booked. [facility] with chart. Patient, Yareli nurse navigator, Bridgett MARCELINO and Janell RESENDIZ aware. Continue to monitor for d/c needs.
[2023-02-09 11:38] LABS: Glucose, Whole Blood 355 mg/dL (60-115)
--- NOTE | 2023-02-09 11:54 | PC.NURSE ---
pt reports his friends are coming tomorrow with some of his belongings. informed pt that the plan is to d/c him to a to a SNF. pt reports i'm not going . Sharmin QURESHI made aware. plan for pt to d/c to SNF or d/c from hospital. pt aware.
--- NOTE | 2023-02-09 12:56 | PC.NURSE ---
security at bedside with pts adult protective caseworker Mc, patient advocate Raisa and this publications writer to explain process to pt. pt irritable, yelling, making threats to staff. able to de-escalate pt. plan to d/c at 2pm to SNF. if pt refuses plan to d/c home.
--- NOTE | 2023-02-09 14:09 | MHC.EDTECH ---
patient was offered to was up and stated he already washed up with the extra rags he had.
--- NOTE | 2023-02-09 14:43 | PC.NURSE ---
late entry: Tpt packing his belongings at 1315, informed Sharmin QURESHI that pt was getting his belongings together, assumed to leave with Brandon to SNF. at 1320 noticed pt was not in his room. this senior mortgage underwriter walked around the unit and pt was not found. informed Sharmin that pts where-abouts were not know. call placed to security to inform them of pt missing. this senior mortgage underwriter walked back to the ER assuming that he may have attempted to leave to hospital. security informed this senior mortgage underwriter that pt was found out in the parking lot. informed Sharmin and Yareli RESENDIZ of this. pt eloped from the hospital, plan to AMA without going to the SNF he reported he will go with a friend . discharge processed through at this time. pt had no IV.
== END 2023-02-09 14:47 | disposition home or self-care (01) ==
PROVIDERS: Physician Assistant Medical; Emergency Provider Student in an Organized Health Care Education/Training Program; PCP Internal Medicine
DX: M79.604 Pain in right leg (principal); M79.605 Pain in left leg; R26.2 Difficulty in walking, not elsewhere classified; R06.02 Shortness of breath; R60.0 Localized edema; R07.89 Other chest pain; Z20.822 Contact with and (suspected) exposure to COVID-19; Z20.828 Contact with and (suspected) exposure to other viral communicable diseases
CPT/HCPCS: 0241U; 36415; 71046; 80048; 80076; 82947; 83880; 84484; 85025; 85610; 85730; 93005; 93970; 97161; 99284

== ENCOUNTER 2023-02-13 11:19 | Outpatient (AMB) | payer MEDICARE, SELFPAY ==
--- NOTE | 2023-02-13 11:25 | A.OFFPC_ITS ---
Vital Signs 02/13/23 11:26 Height 5 ft 7 in BP 146/70 H Blood Pressure Location Lt brachial Position Sitting Pulse 62 Pulse Source Pulse Oximeter Pulse Oximetry (%) 95 Oxygen Delivery Method Room Air Intake Visit Reasons: Shortness of breath Production Material Coordinator Required: No Triage Specialist: Not Required per policy Accompanied by: Self / Same As Patient Allergies No Known Allergies Allergy (Verified 02/13/23 11:26) Medication List - Last Reconciled 02/14/23 by Yasir Pace MD [diabetic shoes As directed] albuterol sulfate 90 mcg/actuation 1 puff inhalation Q4H PRN amlodipine 10 mg PO DAILY blood sugar diagnostic (OneTouch Ultra Test strips) CHECK BLOOD SUGAR 3 TIMES DAILY budesonide-formoterol 160-4.5 mcg/actuation (Symbicort) 2 puffs inhalation BID chair, wheel (Wheel chair) As directed compr.stocking,thigh,reg,large To use daily flash glucose sensor (FreeStyle Calli 2 Sensor kit) As directed gabapentin 400 mg PO TID Gel mattress overlay (Mattress overlay, gel) As directed insulin glargine (Lantus U-100 Insulin) 20 units subcut BEDTIME insulin lispro SLIDING SCALE insulin syringe-needle U-100 (BD Insulin Syringe Ultra-Fine) Use daily lancets ([employer]Touch Delica Plus Lancet) As directed lisinopril 40 mg PO DAILY oxycodone 5 mg PO TID PRN rivaroxaban (Xarelto) 20 mg PO DAILY walker (Ultra-Light Rollator misc) with wheels, brakes and seat walker As directed Tobacco use date assessed: 06/15/22 Fall risk assessment: 2 + Falls in past year Last assessed Fall Risk: 02/13/23 Dental Screening Dental Screen Date: 02/13/23 Did you have a dental visit in the last 12 months?: No Did you have a dental problem in the last 6 months where you did not have access to dental care?: No Was dental information given to patient?: Patient has dentist HPI Shortness of breath HPI Details had a fall and has a cervical fracture; wears a brace and sees allan rosurgery; has DM HTN and COPD; extreme social isolation with frequents episodes of homelessness; cannot seem to reside in one place consistently; frequently evicted. [facility] Medical History TBI (traumatic brain injury) HTN (hypertension) COPD (chronic obstructive pulmonary disease) Diabetes mellitus with coincident hypertension Surgical History History of tonsillectomy Family History Mother No problems noted. Father No problems noted. Other Substance use disorder Social History Housing: Assisted Living Facility [facility] Do you presently have visiting nurse or other home services: No Alcohol intake: never Comment: refused bed alarm Patient Tobacco Use Status: Former Tobacco user Quit Date: 2017 Tobacco use type: Cigarette Years Smoked: 40 e-Cigarette/Vaping Use: Never Used Second Hand Smoke Exposure: No service: No Current occupational status: unemployed Cognitive needs: Yes Hearing needs: No Vision needs: No Questionnaire Thrive Questionnaire Date Thrive assessed: 04/28/22 ALEX-7 AMB Questionnaire ALEX-7 Date ALEX - 7 assessed: 06/15/22 Source: Developed by Drs. James Villagomez, Hali Wright, Raulito Brooks and colleagues, with an educational francisca from [employer]. Review of Systems Const Denies chills, Denies headache(s) and Denies weight loss ENT Denies headache(s) Card Denies chest pain, Denies syncope, Denies irregular heart rhythm and Denies dyspnea Resp Denies chest congestion, Denies cough and Denies dyspnea GI Denies abdominal pain, Denies change in stool character, Denies nausea and Denies vomiting Musc Denies deformity and Denies joint swelling Neuro Denies syncope and Denies headache(s) Physical exam (Primary Care) Vital Signs: Last Vital Signs Pulse 62 02/13/23 11:26 BP 146/70 H 02/13/23 11:26 Pulse Ox 95 02/13/23 11:26 Oxygen Delivery Method Room Air 02/13/23 11:26 Tobacco/Smoking Status: Tobacco use Status Tobacco use date assessed 06/15/22 02/13/23 11:27 Patient Tobacco Use Status Former Tobacco user 02/13/23 11:27 Tobacco use type Cigarette 02/13/23 11:27 e-Cigarette/Vaping Use Never Used 02/13/23 11:27 Thrive Assessment: Date of Thrive Assessment Date Thrive assessed 04/28/22 02/13/23 11:27 Const General: cooperative, comfortable, no acute distress and alert Neck Neck: Yes no lymphadenopathy Thyroid: Thyroid normal Resp Effort & Inspection: normal respiratory effort Auscultation: clear to auscultation bilaterally Percussion: percussion normal Cardio Jugular venous distension: no JVD Palpation: normal PMI Rate: regular rate Rhythm: regular rhythm Heart sounds: S1 normal heart sound present and S2 normal heart sound present GI Inspection: Yes normal to inspection Palpation (GI): No hepatosplenomegaly present Skin General skin exam: no rashes or lesions noted Extrem General: Yes no clubbing, cyanosis or edema Results AMB Hemoglobin A1c AMB Hemoglobin A1c 10.4 % Last Edit by KALE Quiroz on 02/13/23 11:41 Results Reviewed Results Reviewed: Laboratory Last Values Hgb A1c (Clinic) 10.4 % (4.0-6.0) H 02/13/23 11:28 Assessment and Plan Assessment & Plan (1) Cervical spine fracture: Code(s): S12.9XXA - Fracture of neck, unspecified, initial encounter Plan: per neurosrgery; Comm matias contacted to coordinate outpatient services Orders: Orders AMB Hemoglobin A1c 02/13/23 E11.9 - Type 2 diabetes mellitus without complications, I10 - Essential (primary) hypertension Coding Level of Care Code Est Pt Level 3 (88857) Diagnoses Cervical spine fracture S12.9XXA
[2023-02-13 11:26] VITALS: BP 146/70; PULSE 62; O2SAT 95
== END 2023-02-13 11:57 | disposition home or self-care (01) ==
PROVIDERS: PCP Internal Medicine; Visit Provider Internal Medicine
DX: E11.9 Type 2 diabetes mellitus without complications (principal); I10 Essential (primary) hypertension
CPT/HCPCS: 83036; 99213

== ENCOUNTER 2024-02-13 12:02 | Emergency (ER) | payer MEDICARE, SELFPAY ==
--- NOTE | ~2024-02-13 | XR_ITS ---
EXAMINATION: XR CHEST CLINICAL INFORMATION: weakness COMPARISON: 02/07/2023 TECHNIQUE: Frontal view of the chest was obtained. FINDINGS: Subtle chronic interstitial prominence and linear stranding in the left lower lobe which does not appear significantly changed. Upper lobe predominant emphysema. No focal consolidation, edema, or effusion. Stable cardiomediastinal silhouette. XR/XR chest 1V IMPRESSION: Emphysema. No acute cardiopulmonary findings. Electronically signed by: Alan Barney MD 02/13/2024 02:45 PM NARCISO BELCHER
[2024-02-13 12:08] VITALS: BP 148/76; PULSE 71; O2SAT 96
[2024-02-13 12:09] VITALS: BP 159/64; PULSE 64; RESP 18; TEMP 36.1; O2SAT 99; BMI 24.5
[2024-02-13] MEDS: Dextrose 10 % 250 ML 750 ML IV (12:10)
--- NOTE | 2024-02-13 12:10 | ECG_ITS ---
Test Reason : WEAKNESS Blood Pressure : / mmHG Vent. Rate : 061 BPM Atrial Rate : 061 BPM P-R Int : 212 ms QRS Dur : 082 ms QT Int : 418 ms P-R-T Axes : 096 -25 039 degrees QTc Int : 420 ms Sinus rhythm with 1st degree A-V block with Premature ventricular complexes Abnormal ECG When compared with ECG of 07-FEB-2023 14:09, Premature ventricular complexes Present Referred By: Sirisha Conteh Electronically Signed By:Milan Abreu
[2024-02-13 12:16] LABS: Glucose, Whole Blood 24 mg/dL (60-115)
[2024-02-13 12:16] LABS: Glucose, Whole Blood 150 mg/dL (60-115)
[2024-02-13 12:29] LABS: MANUAL DIFF FLAG NO
[2024-02-13 12:32] LABS: Basophils Percent Auto 0.4 % (0-2); Eosinophils Absolute Auto 0.1 X10*3/uL (0.0-0.4); Hematocrit 41.1 % (42.0-52.0); Hemoglobin 13.7 g/dl (14.0-18.0); Imm Gran Abs Auto 0.06 X10*3/uL (0.00-0.03); Imm Gran Pct Auto 0.6 % (0.0-0.4); Lymphocytes Absolute Auto 1.4 X10*3/uL (1.2-4.9); Lymphocytes Percent Auto 12.9 % (20-40); Mean Corpuscular HGB Conc 33.3 g/dl (31.0-36.0); Mean Corpuscular Hemoglobin 29.7 pg (27.0-33.0); Mean Corpuscular Volume 89.2 fL (80.0-98.0); Mean Platelet Volume 10.5 fL (9.4-12.4); Monocytes Absolute Auto 0.8 X10*3/uL (0.1-1.2); Monocytes Percent Auto 7.1 % (2-11); Neutrophils Absolute Auto 8.3 x10*3/uL (2.0-8.3); Platelet Count 160 X10*3/uL (160-400); Red Blood Count 4.61 X10*6/uL (4.60-5.80); Red Cell Distribution Width 12.1 % (11.0-16.0); White Blood Count 10.6 X10*3/uL (4.8-10.8)
--- NOTE | 2024-02-13 12:43 | MHC.EDTECH ---
on arrival by EMS checked patient glucose it was 24 nurse and doctor aware
[2024-02-13] MEDS: ondansetron HCL 4 MG/2 ML VIAL IVPUSH (12:45)
[2024-02-13 12:46] LABS: Alanine Aminotransferase 18 U/L (0-40); Albumin Level 4.3 g/dL (3.5-5.0); Alkaline Phosphatase 68 U/L (39-117); Anion Gap 11 (12-20); Aspartate Amino Transferase 18 U/L (5-37); Bilirubin Direct 0.5 mg/dL (0.0-0.5); Bilirubin Total 1.4 mg/dL (0.0-1.0); Blood Urea Nitrogen 19 mg/dL (9-16); Calcium 9.8 mg/dL (8.4-10.2); Carbon Dioxide 29 mmol/L (22-29); Chloride 106 mmol/L (96-108); Creatinine Clr Calc Pharmacy 60.8; Estimated Glomerular Filt Rate > 60; Glucose Random 157 mg/dL (60-115); Lipase 5 U/L (8-78); Magnesium 1.9 mg/dL (1.6-2.6); Potassium 4.1 mmol/L (3.3-5.1); Sodium 142 mmol/L (135-145); Total Protein 7.3 g/dL (6.5-8.0)
[2024-02-13 12:52] LABS: Troponin-I High Sensitivity 4.5 ng/L (<3.5-35.0)
--- NOTE | 2024-02-13 12:57 | ED_ITS ---
HPI - General Adult General Chief complaint: General Medical Stated complaint: LOW BS 42,ALTERED FROM RESIDENTIAL PER EMS Time Seen by Provider: 02/13/24 12:10 Source: patient, EMS and old records reviewed Mode of arrival: EMS Limitations: no limitations History of Present Illness ED Provider: NAYE VILLARREAL narrative: 78 yo male with PMH of COPD, IDDM, HTN, PAF on xarelto here with c/o hypoglycemia he went to an appointment today and when he came back staff noticed he was off and BS was low 42 - they tried to give him juice but he wasn't able to swallow it. On arrival here he was angry and kind of rude due to his sugar being 24. He was given amp of D50 and food with good response. He tells me today was fine he took his medications and ate food he is not sure how this happened. He states he felt fine no infections or any other concerns. 280 this AM 15 units of insulin and ate eggs, march and [place] toast complaint: low BS Onset (ago): hour(s) (1) Severity: severe Relieving factors: other (dextrose) Exacerbating factors: none Associated symptoms: denies other symptoms Treatments prior to arrival: none Related Data Home Medications ?Medication ?Instructions ?Recorded ?Confirmed oxycodone 5 mg tablet 5 mg PO TID PRN 02/13/23 02/14/23 Previous Rx's ?Medication ?Instructions ?Recorded chair, wheel (Wheel chair) #1 ea 06/22/21 Gel mattress overlay (Mattress #1 ea 08/24/21 overlay, gel) walker #1 ea 04/07/22 flash glucose sensor (FreeStyle #1 ea 10/04/22 Calli 2 Sensor kit) diabetic shoes #1 ea 12/20/22 compr.stocking,thigh,reg,large #2 ea 04/11/23 blood sugar diagnostic ([employer] #300 strips 04/20/23 Ultra Test strips) insulin syringe-needle U-100 0.5 #100 ea 06/19/23 mL 30 gauge x 1/2 (BD Insulin Syringe Ultra-Fine) lancets 30 gauge (OneTouch Delica #100 ea 06/19/23 Plus Lancet) gabapentin 400 mg capsule 400 mg PO TID #90 caps 06/20/23 amlodipine 10 mg tablet 10 mg PO DAILY #90 tabs 07/06/23 lisinopril 40 mg tablet 40 mg PO DAILY #90 tabs 07/06/23 rivaroxaban 20 mg tablet (Xarelto) 20 mg PO DAILY #90 tabs 07/14/23 walker (Ultra-Light Rollator misc) #1 ea 08/07/23 insulin lispro 100 unit/mL See Rx Instructions .Route 08/15/23 subcutaneous solution .COMPLEX #10 mL insulin glargine 100 unit/mL 20 unit (0.2 mL) subcut BEDTIME 09/18/23 subcutaneous solution (Lantus #10 mL U-100 Insulin) budesonide-formoterol HFA 160 2 puff inhalation BID #10.2 grams 12/20/23 mcg-4.5 mcg/actuation aerosol inhaler (Symbicort) albuterol sulfate 90 mcg/actuation 1 puff inhalation Q4H PRN wheezing 02/05/24 aerosol inhaler #8.5 grams Allergies Allergy/AdvReac Type Severity Reaction Status Date / Time No Known Allergies Allergy Verified 02/13/24 12:12 Review of Systems 2 Review of Systems: Constitutional : No Fever, No Chills, No Fatigue ENT/Mouth : No sore throat, No Rhinorrhea Eyes: No Eye Pain, No Swelling, No Redness Cardiovascular : No Chest Pain, No SOB, No Dyspnea on Exertion Respiratory : No Cough, No Sputum Gastrointestinal : No Nausea, No Vomiting, No Diarrhea, No abdominal Pain Genitourinary : No Dysuria, No Urinary Frequency, No Hematuria, Musculoskeletal : No joint pain, No Myalgias, No Joint Swelling Skin : No Skin Lesions, No rash Neuro : No Weakness, No Numbness, No Dizziness, no Headache Psych : No Anxiety/Panic, No Depression All other systems reviewed and are negative [facility]LY [facility] Past Medical History Attestation statement: The following information was validated with the patient. Source: old records reviewed Medical History TBI (traumatic brain injury) HTN (hypertension) COPD (chronic obstructive pulmonary disease) Diabetes mellitus with coincident hypertension Surgical History History of tonsillectomy Family History Family History Mother No problems noted. Father No problems noted. Other Substance use disorder Social History Social History Housing: Assisted Living Facility Housing Other:: [facility] Do you presently have visiting nurse or other home services: No Alcohol intake: never Comment: refused bed alarm Patient Tobacco Use Status: Former Tobacco user Tobacco use type: Cigarette Years Smoked: 40 Smoked in Last 30 Days: No e-Cigarette/Vaping Use: Never Used Second Hand Smoke Exposure: No Use of substances other than those prescribed or required for medical reasons: No Advance Directives: No service: No Current occupational status: unemployed Cognitive needs: Yes Hearing needs: No Vision needs: No Physical Exam ED Vital Signs: Vital Signs - 24 hr 02/13/24 12:09 Temperature 97 F Pulse Rate 64 Respiratory Rate 18 Blood Pressure 159/64 H Pulse Oximetry 99 Oxygen Delivery Method Room Air BMI result Body Mass Index 24.5 Appearance: Alert. Oriented X3. No acute distress. initially on arrival when blood sugar was low he was drooling and combative as he woke up but then was fluent, coherent and very pleasant Eyes: Pupils equal, round and reactive to light. ENT: Pharynx normal. Neck: Normal inspection. Neck supple. CVS: irregular heart rate and rhythm. Pulses normal. Respiratory: No respiratory distress. Breath sounds normal. Abdomen: Soft and nontender. Skin: Skin warm and dry. Normal skin color. Normal skin turgor. Extremities: No lower extremity edema. No calf ttp Neuro: Oriented X 3. No motor deficit. No sensory deficit. Medications Administered Generic Name Dose Route Start Last Admin Trade Name Freq PRN Reason Stop Dose Admin Dextrose 250 mls @ 750 mls/hr 02/13/24 12:10 02/13/24 12:36 D10 IV Infused Q15M PRN Infusion per Hypoglycemia Standing Ord. Discontinued Medications Generic Name Dose Route Start Last Admin Trade Name Freq PRN Reason Stop Dose Admin Ondansetron HCl 4 mg 02/13/24 12:32 02/13/24 12:45 Ondansetron Hcl 4 Mg/2 Ml Vial IVPUSH 02/13/24 12:33 4 mg ONCE ONE Administration Medical Decision Making Medical Decision Making MDM Narrative: 78 yo male with PMH of COPD, IDDM, HTN, PAF on xarelto here with c/o low blood sugar without reported overdose of insulin, lack of food or recent infections. At this time will observe feed give dextrose given presentation on arrival and obtain labs, kidney function, UA and CXR. I did not see prior hypoglycemia in the past so again will discuss with patient his regimen Differential Diagnosis Differential Diagnoses: The differential diagnosis associated with the presentation includes hypoglycemia, AZEEM Admission/Observation Consideration of admission/observation: Escalation of care including admission/observation considered BS stable for 4 hours no signs of infection or pneumonia Lab Data MDM Lab Attestation statement: I reviewed the patient's lab results. 02/13/24 12:26 02/13/24 12: Labs: Lab Results 02/13/24 02/13/24 02/13/24 Range/Units 12:07 12:12 12: WBC 10.6 (4.8-10.8) X10*3/uL RBC 4.61 (4.60-5.80) X10*6/uL Hgb 13.7 L (14.0-18.0) g/dl Hct 41.1 L (42.0-52.0) % MCV 89.2 (80.0-98.0) fL MCH 29.7 (27.0-33.0) pg MCHC 33.3 (31.0-36.0) g/dl RDW 12.1 (11.0-16.0) % Plt Count 160 (160-400) X10*3/uL MPV 10.5 (9.4-12.4) fL Immature Gran % (Auto) 0.6 H (0.0-0.4) % Neut % (Auto) 78.0 H (45-73) % Lymph % (Auto) 12.9 L (20-40) % [place] % (Auto) 7.1 (2-11) % Eos % (Auto) 1.0 (0-4) % Baso % (Auto) 0.4 (0-2) % Lymph # (Auto) 1.4 (1.2-4.9) X10*3/uL [place] # (Auto) 0.8 (0.1-1.2) X10*3/uL Eos # (Auto) 0.1 (0.0-0.4) X10*3/uL Baso # (Auto) 0.0 (0.0-0.2) X10*3/uL Abs Immat Gran (auto) 0.06 H (0.00-0.03) X10*3/uL Absolute Neuts (auto) 8.3 (2.0-8.3) x10*3/uL Absolute Nucleated RBC 0.000 (0.0-0.012) X10*3/uL Nucleated RBC % (auto) 0.0 (0.0-0.2) /100WBC Sodium 142 (135-145) mmol/L Potassium 4.1 (3.3-5.1) mmol/L Chloride 106 (96-108) mmol/L Carbon Dioxide 29 (22-29) mmol/L Anion Gap 11 L (12-20) BUN 19 H (9-16) mg/dL Creatinine 0.95 (0.5-1.4) mg/dL Estim Creat Clear Calc 60.8 Estimated GFR > 60 POC Glucose 24 L* 150 H (60-115) mg/dL Random Glucose 157 H (60-115) mg/dL Calcium 9.8 (8.4-10.2) mg/dL Magnesium 1.9 (1.6-2.6) mg/dL Total Bilirubin 1.4 H (0.0-1.0) mg/dL Direct Bilirubin 0.5 (0.0-0.5) mg/dL AST 18 (5-37) U/L ALT 18 (0-40) U/L Alkaline Phosphatase 68 (39-117) U/L Troponin I High Sens 4.5 (<3.5-35.0) ng/L Total Protein 7.3 (6.5-8.0) g/dL Albumin 4.3 (3.5-5.0) g/dL Lipase 5 L (8-78) U/L Urine Color Urine Appearance Urine pH (5.0-9.0) Ur Specific [place] (1.005-1.025) Urine Protein (Neg-Trace) mg/dL Urine Glucose (UA) (Negative) mg/dL Urine Ketones (Negative) mg/dL Urine Blood (Negative) Urine Nitrite (Negative) Ur Leukocyte Esterase (Negative) 02/13/24 02/13/24 Range/Units 15:56 16:03 WBC (4.8-10.8) X10*3/uL RBC (4.60-5.80) X10*6/uL Hgb (14.0-18.0) g/dl Hct (42.0-52.0) % MCV (80.0-98.0) fL MCH (27.0-33.0) pg MCHC (31.0-36.0) g/dl RDW (11.0-16.0) % Plt Count (160-400) X10*3/uL MPV (9.4-12.4) fL Immature Gran % (Auto) (0.0-0.4) % Neut % (Auto) (45-73) % Lymph % (Auto) (20-40) % [place] % (Auto) (2-11) % Eos % (Auto) (0-4) % Baso % (Auto) (0-2) % Lymph # (Auto) (1.2-4.9) X10*3/uL [place] # (Auto) (0.1-1.2) X10*3/uL Eos # (Auto) (0.0-0.4) X10*3/uL Baso # (Auto) (0.0-0.2) X10*3/uL Abs Immat Gran (auto) (0.00-0.03) X10*3/uL Absolute Neuts (auto) (2.0-8.3) x10*3/uL Absolute Nucleated RBC (0.0-0.012) X10*3/uL Nucleated RBC % (auto) (0.0-0.2) /100WBC Sodium (135-145) mmol/L Potassium (3.3-5.1) mmol/L Chloride (96-108) mmol/L Carbon Dioxide (22-29) mmol/L Anion Gap (12-20) BUN (9-16) mg/dL Creatinine (0.5-1.4) mg/dL Estim Creat Clear Calc Estimated GFR POC Glucose 354 H* (60-115) mg/dL Random Glucose (60-115) mg/dL Calcium (8.4-10.2) mg/dL Magnesium (1.6-2.6) mg/dL Total Bilirubin (0.0-1.0) mg/dL Direct Bilirubin (0.0-0.5) mg/dL AST (5-37) U/L ALT (0-40) U/L Alkaline Phosphatase (39-117) U/L Troponin I High Sens (<3.5-35.0) ng/L Total Protein (6.5-8.0) g/dL Albumin (3.5-5.0) g/dL Lipase (8-78) U/L Urine Color Yellow Urine Appearance Clear Urine pH 6.0 (5.0-9.0) Ur Specific [place] 1.010 (1.005-1.025) Urine Protein 30 (1+) H (Neg-Trace) mg/dL Urine Glucose (UA) Negative (Negative) mg/dL Urine Ketones Negative (Negative) mg/dL Urine Blood Negative (Negative) Urine Nitrite Negative (Negative) Ur Leukocyte Esterase Negative (Negative) Independent Interpretation I performed an independent interpretation of an: EKG and Plain X-Ray (no pneumonia) Interpretation: Rate: 61 Rhythm: NSR with PACs [place]: left Normal P waves. 1st degree AVB Normal QRS complex. ST T wave : no [place], normal qTC: 420 prior studies: no acute ischemia The study has been interpreted contemporaneously by me. . Radiology Impression Discussion of test interpretation with radiology: I have reviewed the radiologist's reading. Independent Historian Clinical information obtained from an independent historian. History obtained from or confirmed by: EMS External Record Review External record reviewed: Inpatient record and Outpatient record Discharge Plan Discharge Clinical Impression: Hypoglycemia Patient Disposition: Home, Self-Care Instructions: Hypoglycemia in a Person with Diabetes (ED) Additional Instructions: return for any worsening symptoms or concerns monitor blood sugar frequently tonight do not dose with insulin again until you eat dinner follow up with your doctor Prescriptions: No Action (DME) Wheel chair Kit See Rx Instructions .Route Qty: 1 0RF Rx Instructions: As directed (DME) FreeStyle Calli 2 Sensor Kit See Rx Instructions .Route Qty: 1 0RF Rx Instructions: As directed (DME) diabetic shoes See Rx Instructions .Route .MEDSUPPLY Qty: 1 0RF Rx Instructions: As directed (DME) compr.stocking,thigh,reg,large Misc See Rx Instructions .Route Qty: 2 3RF Rx Instructions: To use daily (DME) OneTouch Ultra Test Strip See Rx Instructions .ROUTE .COMPLEX Qty: 300 3RF Dose Instruction: CHECK BLOOD SUGAR 3 TIMES DAILY Rx Instructions: CHECK BLOOD SUGAR 3 TIMES DAILY (DME) lancets [OneTouch Delica Plus Lancet] 30 gauge misc See Rx Instructions .ROUTE .MEDSUPPLY Qty: 100 8RF Rx Instructions: As directed (DME) insulin syringe-needle U-100 [BD Insulin Syringe Ultra-Fine] 0.5 mL 30 gauge x 1/2 syringe See Rx Instructions .ROUTE .MEDSUPPLY Qty: 100 8RF Rx Instructions: Use daily gabapentin 400 mg capsule 400 mg PO TID Qty: 90 3RF Patient Comments: Does not think this is the correct dose amlodipine 10 mg tablet 10 mg PO DAILY Qty: 90 8RF lisinopril 40 mg tablet 40 mg PO DAILY Qty: 90 8RF Xarelto 20 mg tablet 20 mg PO DAILY Qty: 90 8RF (DME) Ultra-Light Rollator Misc See Rx Instructions .Route Qty: 1 0RF Rx Instructions: with wheels, brakes and seat insulin lispro 100 unit/mL solution See Rx Instructions .ROUTE .COMPLEX Qty: 10 11RF Rx Instructions: SLIDING SCALE insulin glargine [Lantus U-100 Insulin] 100 unit/mL solution 20 unit subcut BEDTIME Qty: 10 3RF budesonide-formoterol [Symbicort] 160-4.5 mcg/actuation HFA aerosol inhaler 2 puff inhalation BID Qty: 10.2 2RF albuterol sulfate 90 mcg/actuation HFA aerosol inhaler 1 puff inhalation Q4H PRN (Reason: wheezing) Qty: 8.5 2RF (DME) Mattress overlay, gel Misc See Rx Instructions .Route Qty: 1 0RF Rx Instructions: As directed (DME) walker Misc See Rx Instructions .Route Qty: 1 0RF Rx Instructions: As directed oxycodone 5 mg tablet 5 mg PO TID PRN Print Language: Polish
[2024-02-13 16:06] LABS: Glucose, Whole Blood 354 mg/dL (60-115)
[2024-02-13 16:14] LABS: Appearance Urine Clear; Color Urine Yellow; Glucose Urine UA Negative (Negative); Leukocyte Esterase Urine Negative (Negative); Nitrite Urine Negative (Negative); UMIC TRIGGER UACC YES; Urine Blood Negative (Negative); Urine Ketones Negative (Negative); Urine Protein 30 (1+) mg/dL (Neg-Trace)
[2024-02-13 16:17] LABS: Bacteria Urine None Seen (None Seen); Hyaline Casts Urine 0-2 /LPF (0-2); RBC Urine 0-2 /HPF (0-2); Squamous Epithelial Cell Urine 0-2 /HPF (0-2); WBC Urine 0-5 /HPF (0-5)
[2024-02-13 16:41] VITALS: BP 173/81; PULSE 85; RESP 16; TEMP 36.7; O2SAT 96
[2024-02-13 18:39] VITALS: BP 146/62; PULSE 77; RESP 16; TEMP 36.7; O2SAT 94
[2024-02-13 19:04] VITALS: BP 146/62; PULSE 77; RESP 16; TEMP 36.7; O2SAT 94
== END 2024-02-13 19:06 | disposition home or self-care (01) ==
PROVIDERS: Emergency Provider Emergency Medicine
DX: E11.649 Type 2 diabetes mellitus with hypoglycemia without coma (principal); I10 Essential (primary) hypertension; Z79.4 Long term (current) use of insulin; Z79.899 Other long term (current) drug therapy
CPT/HCPCS: 36415; 71045; 80048; 80076; 81001; 82947; 83690; 83735; 84484; 85025; 93005; 96365; 96375; 99285; J2405

== ENCOUNTER → 2024-02-13 12:10 | Outpatient (BNV) | payer MEDICARE, SELFPAY | PROVIDERS: Emergency Provider Emergency Medicine; Visit Provider Internal Medicine Cardiovascular Disease | DX: I44.0 Atrioventricular block, first degree (principal); R53.1 Weakness; I49.3 Ventricular premature depolarization; R94.31 Abnormal electrocardiogram [ECG] [EKG] | CPT/HCPCS: 93010 ==

== ENCOUNTER 2024-06-23 19:22 | Emergency (ER) | payer OTHER, SELFPAY ==
[2024-06-23 19:51] VITALS: BP 189/61; PULSE 69; O2SAT 98
[2024-06-23 19:52] VITALS: BP 207/90; PULSE 77; RESP 16; TEMP 36.4; O2SAT 94; BMI 23.5
--- NOTE | 2024-06-23 20:15 | ED.GENADULT ---
HPI - General Adult General Chief complaint: Fall Stated complaint: hypoglycemia Time Seen by Provider: 06/23/24 20:28 Source: patient Limitations: no limitations History of Present Illness ED Provider: Amelia Tejada PA-C HPI narrative: 79-year-old male with a history of COPD, IDDM, HTN, PAF on xarelto presents after fall. Patient not allowing to be examined, patient not wanting to engage in conversation so as to obtain history. He is demanding to leave. Related Data Home Medications ?Medication ?Instructions ?Recorded ?Confirmed oxycodone 5 mg tablet 5 mg PO TID PRN 02/13/23 02/14/23 Previous Rx's ?Medication ?Instructions ?Recorded chair, wheel (Wheel chair) #1 ea 06/22/21 Gel mattress overlay (Mattress #1 ea 08/24/21 overlay, gel) walker #1 ea 04/07/22 flash glucose sensor (FreeStyle #1 ea 10/04/22 Calli 2 Sensor kit) diabetic shoes #1 ea 12/20/22 compr.stocking,thigh,reg,large #2 ea 04/11/23 insulin syringe-needle U-100 0.5 #100 ea 06/19/23 mL 30 gauge x 1/2 (BD Insulin Syringe Ultra-Fine) lancets 30 gauge (OneTouch Delica #100 ea 06/19/23 Plus Lancet) gabapentin 400 mg capsule 400 mg PO TID #90 caps 06/20/23 amlodipine 10 mg tablet 10 mg PO DAILY #90 tabs 07/06/23 lisinopril 40 mg tablet 40 mg PO DAILY #90 tabs 07/06/23 rivaroxaban 20 mg tablet (Xarelto) 20 mg PO DAILY #90 tabs 07/14/23 walker (Ultra-Light Rollator misc) #1 ea 08/07/23 insulin lispro 100 unit/mL See Rx Instructions .Route 08/15/23 subcutaneous solution .COMPLEX #10 mL insulin glargine 100 unit/mL 20 unit (0.2 mL) subcut BEDTIME 09/18/23 subcutaneous solution (Lantus #10 mL U-100 Insulin) budesonide-formoterol HFA 160 2 puff inhalation BID #10.2 grams 02/27/24 mcg-4.5 mcg/actuation aerosol inhaler (Symbicort) blood sugar diagnostic (OneTouch #300 strips 03/31/24 Ultra Test strips) albuterol sulfate 90 mcg/actuation 1 puff inhalation Q4H PRN wheezing 06/16/24 aerosol inhaler #8.5 grams Allergies Allergy/AdvReac Type Severity Reaction Status Date / Time No Known Allergies Allergy Verified 06/23/24 19:55 [facility] Past Medical History Medical History TBI (traumatic brain injury) HTN (hypertension) COPD (chronic obstructive pulmonary disease) Diabetes mellitus with coincident hypertension Surgical History History of tonsillectomy Family History Family History Mother No problems noted. Father No problems noted. Other Substance use disorder Social History Social History Housing: Assisted Living Facility Housing Other:: [facility] Do you presently have visiting nurse or other home services: No Alcohol intake: never Comment: refused bed alarm Patient Tobacco Use Status: Former Tobacco user Tobacco use type: Cigarette Years Smoked: 40 Smoked in Last 30 Days: No e-Cigarette/Vaping Use: Never Used Second Hand Smoke Exposure: No Use of substances other than those prescribed or required for medical reasons: No Advance Directives: No Advance Directives Information Provided: Yes Do you have a plan to hurt others: No Plan service: No Current occupational status: unemployed Cognitive needs: Yes Hearing needs: No Vision needs: No Physical Exam ED Vital Signs: Vital Signs - 24 hr 06/23/24 19:52 Temperature 97.5 F Pulse Rate 77 Respiratory Rate 16 Blood Pressure 207/90 H Pulse Oximetry 94 Oxygen Delivery Method Room Air BMI result Body Mass Index 23.5 Medical Decision Making Medical Decision Making MDM Narrative: 79-year-old male with a history of COPD, IDDM, HTN, PAF on xarelto presents after fall. Patient not allowing to be examined, patient not wanting to engage in conversation so as to obtain history. He is demanding to leave. The patient is alert and oriented x3, he is declining assessment. He is demanding to leave. He is quite hostile and belligerent, and is verbally assaulting staff in numerous ways. He has his landlord's phone number to call for a ride. We will do so now. To note, again, the patient is on a blood thinner, he was found on the floor, he likely struck his head. He also has bilateral skin tears over the elbows. I explained to the patient he could have an intracranial hemorrhage, he could have a cervical spine injury, the skin tears require attention, he may have a laceration. He still declines treatment. He will be signing out against medical advice. Lab Data Labs: Lab Results 06/23/24 Range/Units 20:19 POC Glucose 86 (60-115) mg/dL Discharge Plan Discharge Clinical Impression: Multiple skin tears Patient Disposition: Left Against Medical Advice Additional Instructions: You chose to sign out against medical advice. We are concerned that you could have an injury to your neck, the you could have an intracranial bleed, given you fell and struck your head. You have evidence of trauma over both upper extremities, you could also have injury to the bones. Please note you can return for treatment at any time. Prescriptions: No Action (DME) Wheel chair Kit See Rx Instructions .Route Qty: 1 0RF Rx Instructions: As directed (DME) FreeStyle Calli 2 Sensor Kit See Rx Instructions .Route Qty: 1 0RF Rx Instructions: As directed (DME) diabetic shoes See Rx Instructions .Route .MEDSUPPLY Qty: 1 0RF Rx Instructions: As directed (DME) compr.stocking,thigh,reg,large Misc See Rx Instructions .Route Qty: 2 3RF Rx Instructions: To use daily (DME) lancets [OneTouch Delica Plus Lancet] 30 gauge misc See Rx Instructions .ROUTE .MEDSUPPLY Qty: 100 8RF Rx Instructions: As directed (DME) insulin syringe-needle U-100 [BD Insulin Syringe Ultra-Fine] 0.5 mL 30 gauge x 1/2 syringe See Rx Instructions .ROUTE .MEDSUPPLY Qty: 100 8RF Rx Instructions: Use daily gabapentin 400 mg capsule 400 mg PO TID Qty: 90 3RF Patient Comments: Does not think this is the correct dose amlodipine 10 mg tablet 10 mg PO DAILY Qty: 90 8RF lisinopril 40 mg tablet 40 mg PO DAILY Qty: 90 8RF Xarelto 20 mg tablet 20 mg PO DAILY Qty: 90 8RF (DME) Ultra-Light Rollator Misc See Rx Instructions .Route Qty: 1 0RF Rx Instructions: with wheels, brakes and seat insulin lispro 100 unit/mL solution See Rx Instructions .ROUTE .COMPLEX Qty: 10 11RF Rx Instructions: SLIDING SCALE insulin glargine [Lantus U-100 Insulin] 100 unit/mL solution 20 unit subcut BEDTIME Qty: 10 3RF budesonide-formoterol [Symbicort] 160-4.5 mcg/actuation HFA aerosol inhaler 2 puff inhalation BID Qty: 10.2 3RF (DME) OneTouch Ultra Test Strip See Rx Instructions .ROUTE .COMPLEX Qty: 300 0RF Dose Instruction: CHECK BLOOD SUGAR 3 TIMES DAILY Rx Instructions: CHECK BLOOD SUGAR 3 TIMES DAILY albuterol sulfate 90 mcg/actuation HFA aerosol inhaler 1 puff inhalation Q4H PRN (Reason: wheezing) Qty: 8.5 5RF (DME) Mattress overlay, gel Misc See Rx Instructions .Route Qty: 1 0RF Rx Instructions: As directed (DME) walker Misc See Rx Instructions .Route Qty: 1 0RF Rx Instructions: As directed oxycodone 5 mg tablet 5 mg PO TID PRN Stand Alone Forms: Against Medical Advice Interventions: ED Discharge Assessment Last Done: 06/23/24 21:07 Discharge Date/Time: 06/23/24 21:08 Print Language: Tamazight
[2024-06-23 20:22] LABS: Glucose, Whole Blood 86 mg/dL (60-115)
--- NOTE | 2024-06-23 20:30 | PC.NURSE ---
Pt.refusing care at this time. Provider Devika informed and notified.
--- NOTE | 2024-06-23 20:50 | PC.NURSE ---
Had pt. sign out AMA, informed pt. on what AMA stands for and pt. still requesting to leave. Pt. then informed RN and MARTÍN Fortune, that he needs a ride back home. Informed pt. that once a pt signs out AMA that he is free to go and not able to request services since he refused care. Pt. had IV dc and informed staff he does not have money and needs transport again. Informed pt. that transport is not provided if he refuses care and signs form. Devika RESENDIZ that called number provided from pt. and left voicemail.
[2024-06-23 21:07] VITALS: BP 207/90; PULSE 77; RESP 16; TEMP 36.4; O2SAT 94
== END 2024-06-23 21:08 | disposition left against medical advice (07) ==
PROVIDERS: Emergency Provider Emergency Medicine
DX: E11.649 Type 2 diabetes mellitus with hypoglycemia without coma (principal); Z79.01 Long term (current) use of anticoagulants; Z79.899 Other long term (current) drug therapy; Z87.891 Personal history of nicotine dependence; Z79.4 Long term (current) use of insulin
CPT/HCPCS: 82947; 99283; 99284

== ENCOUNTER 2024-07-03 13:50 | Outpatient (AMB) | payer OTHER, SELFPAY ==
--- NOTE | 2024-07-03 14:05 | A.OFFPC_ITS ---
Vital Signs 07/03/24 14:06 Height 5 ft 7 in Weight 151 lb 12.8 oz BMI 23.8 BP 112/58 L Blood Pressure Location Lt brachial Position Sitting Respiration 14 Pulse 64 Pulse Source Pulse Oximeter Temp 97.7 F Temp Source Oral Pulse Oximetry (%) 97 Oxygen Delivery Method Room Air [place] [facility] Intake Note: Patient is here to follow-up after a visit the emergency department at [facility] in [place], [place] on 06/23/2024 Barrel Washer Machine Required: No Accompanied by: Self / Same As Patient Allergies No Known Allergies Allergy (Verified 07/03/24 14:29) Medication List - Last Reconciled 07/03/24 by EDILBERTO Nolen [diabetic shoes As directed] albuterol sulfate 90 mcg/actuation 1 puff inhalation Q4H PRN amlodipine 10 mg PO DAILY blood sugar diagnostic (Swing [employer] Ultra Test strips) CHECK BLOOD SUGAR 3 TIMES DAILY budesonide-formoterol 160-4.5 mcg/actuation (Symbicort) 2 puffs inhalation BID chair, wheel (Wheel chair) As directed compr.stocking,thigh,reg,large To use daily flash glucose sensor (FreeStyle Calli 2 Sensor kit) As directed Gel mattress overlay (Mattress overlay, gel) As directed insulin glargine (Lantus U-100 Insulin) 20 units (0.2 mL) subcut BEDTIME insulin lispro SLIDING SCALE insulin syringe-needle U-100 (BD Insulin Syringe Ultra-Fine) Use daily lancets ([employer] StaffingTouch Delica Plus Lancet) As directed lisinopril 40 mg PO DAILY rivaroxaban (Xarelto) 20 mg PO DAILY walker (Ultra-Light Rollator misc) with wheels, brakes and seat walker As directed Tobacco use date assessed: 07/03/24 Fall risk assessment: 2 + Falls in past year Last assessed Fall Risk: 07/03/24 Dental Screening Dental Screen Date: 07/03/24 Did you have a dental visit in the last 12 months?: No Did you have a dental problem in the last 6 months where you did not have access to dental care?: No Was dental information given to patient?: No HPI [facility] [place] HPI Details 79-year-old male with a history of COPD, IDDM, HTN, PAF on xarelto presents after fall. Patient not allowing to be examined, patient not wanting to engage in conversation so as to obtain history. He is demanding to leave. [id number], Back of right hand, elbow scabs over area. [facility] Medical History TBI (traumatic brain injury) HTN (hypertension) COPD (chronic obstructive pulmonary disease) Diabetes mellitus with coincident hypertension Surgical History History of tonsillectomy Family History Mother No problems noted. Father No problems noted. 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 Housing: House Housing Other:: [employer] Do you presently have visiting nurse or other home services: No Alcohol intake: never Comment: refused bed alarm Patient Tobacco Use Status: Former Tobacco user Tobacco use type: Cigarette Years Smoked: 40 e-Cigarette/Vaping Use: Never Used Second Hand Smoke Exposure: No service: No Current occupational status: unemployed Cognitive needs: Yes (Cane, walker) Hearing needs: No Vision needs: No Questionnaire Thrive Questionnaire Date Thrive assessed: 07/03/24 I am a: Patient What is your living situation today?: I have a steady place to live Within the past 12 months, did the food you bought not last and you didn't have the money to get more?: Never true Within the past 12 months, did you worry whether your food would run out before you got money to buy more?: Never true Do you have trouble paying for medicines?: No Do you have trouble getting transportation to medical appointments?: No Do you have trouble paying your heating and electricity bill?: No Do you have trouble taking care of your child, family member or friend?: No Do you have trouble with day-to-day activities such as bathing, preparing meals, shopping, managing finances, etc.?: No Are you currently unemployed and looking for a job?: No Are you interested in more education?: No Please select the resources that you would like help with: None Currently or been in a relationship where the following occur: No concerns reported THRIVE Score: 0 AUDIT C Alcohol Use Questionnaire (AUDIT-C) 1. How often do you have a drink containing alcohol?: Never Total Score: 0 Score Reviewed/Action Taken: No ALEX-7 AMB Questionnaire ALEX-7 Date ALEX - 7 assessed: 06/15/22 Source: Developed by Drs. James Villagomez, Hali Wright, Raulito Brooks and colleagues, with an educational francisca from [employer]. Physical exam (Primary Care) Vital Signs: Oxygen Delivery Method Room Air 07/03/24 14:06 BMI result Body Mass Index 23.8 Tobacco/Smoking Status: Tobacco use Status Tobacco use date assessed 07/03/24 07/03/24 14:18 Patient Tobacco Use Status Former Tobacco user 07/03/24 14:18 Tobacco use type Cigarette 07/03/24 14:18 e-Cigarette/Vaping Use Never Used 07/03/24 14:18 Thrive Assessment: Date of Thrive Assessment Date Thrive assessed 07/03/24 07/03/24 14:18 Currently or been in a relationship where the following occur: No concerns reported Results AMB Hemoglobin A1c AMB Hemoglobin A1c 7.9 % Last Edit by Judi Hanson CMA on 07/03/24 14:38 Coding Assessment & Plan Assessment & Plan Orders: Orders AMB Hemoglobin A1c Today E11.9 - Type 2 diabetes mellitus without complications
[2024-07-03 14:06] VITALS: BP 112/58; PULSE 64; RESP 14; TEMP 36.5; O2SAT 97; BMI 23.8
--- OUTSIDE RECORDS SUMMARY | 2024-07-03 16:17 | XMS_ITS | Clinical Summary ---
Author Organization [facility] Address [id number] [place] [id number] Care Team Providers Care Clark Driver Name Role Phone Unavailable Primary Care Provider Unavailabl e Social History Tobacco Use Types Packs/Day Years Used Date Smoking Tobacco: Never Assessed Sex and Gender Information Value Date Recorded Sex Assigned at Not on file Legal Sex Male 8:11 PM EST Gender Identity Not on file Sexual Orientation Not on file Plan of Treatment Health Maintenance Due Date Last Done Comments DTaP,Tdap,and Td Vaccines (1 - Tdap) 1965 Pneumococcal Vaccine: 50+ Ye ars (1 of 1 - PCV) 1996 Zoster Vaccines (1 of 2) 1996 RSV Immunization Adult Patie nts (1 - 1-dose 75+ series) 2021 Cholesterol Screening (Lipid Panel) 04/05/2023 Depression Screening 04/05/2023 Falls Risk Assessment 04/05/2023 Hepatitis C Screening 04/05/2023 Social Influencers of Health Screening 04/05/2023 COVID-19 Vaccine ( - 2023-2 5 season) 2023 Influenza Vaccine (Season Ended) 2024 HIB Vaccines Aged Out No longer eligi ble based on patient's age to complete this topic HPV Vaccines Aged Out No longer eligi ble based on patient's age to complete this topic Hepatitis A Vaccines Aged Out No long er eligible based on patient's age to complete this topic Hepatitis B Vaccines Aged Out No long er eligible based on patient's age to complete this topic IPV Vaccines Aged Out No longer eligi ble based on patient's age to complete this topic MMR Vaccines Aged Out No longer eligi ble based on patient's age to complete this topic Meningococcal ACWY Vaccine Aged Out N o longer eligible based on patient's age to complete this topic Meningococcal B Vaccine Aged Out No l onger eligible based on patient's age to complete this topic RSV Immunization Patients Un rosa 20 months Aged Out No longer eligible b ased on patient's age to complete this topic Varicella Vaccines Aged Out No longer eligible based on patient's age to complete this topic
--- OUTSIDE RECORDS SUMMARY | 2024-07-03 16:17 | XMS_ITS | Clinical Summary ---
Author Organization [facility] Address [address] [place] [address] Care Team Providers Care Varitypist Name Role Phone August Bello MD Primary Care Provider Source Comments PLEASE NOTE, if this patient is a minor, it may be UNLAWFUL to discuss sensitive information that is contained in these records (such as FAMILY PLANNING, MENTAL HEALTH or SUBSTANCE ABUSE) with the minor patient's parent or other person without the patient's specific authorization.[facility] Allergies No known active allergies Medications albuterol HFA 90 mcg/actuation inhaler Inhale 2 Puffs into the lungs every 4 (four) hours as needed 06/18/19 24 Active amLODIPine (NORVASC) 10 mg tablet Take 10 mg by mouth once daily 07/02/19 24 Active ONETOUCH ULTRA TEST strips 07/02/19 24 Active ONETOUCH ULTRA2 METER monitoring kit USE DIRECTED 3 TIMES A DAY 02/11/20 23 Active SYMBICORT 160-4.5 mcg/actuation inhaler Inhale 2 Puffs into the lungs 2 (two) times daily 07/14/19 24 Active VITAMIN D3 25 mcg (1,000 unit) chewable tablet Chew and swallow 1,000 Units by mouth once daily 09/27/19 23 Active gabapentin (NEURONTIN) 400 mg capsule Take 400 mg by mouth 3 (three) times daily 07/03/19 24 Active ONETOUCH DELICA PLUS LANCET 33 gauge USE DIRECTED TO TEST BLOOD SUGAR THREE TIMES A DAY BEFORE MEALS 03/24/19 24 Active lisinopriL 40 mg tablet Take 40 mg by mouth once daily 07/14/19 24 Active XARELTO 20 mg tab 07/14/19 24 Active MISCELLANEOUS MEDICAL SUPPLY MISCIndications:Ty pe 2 diabetes mellitus with hyperglycemia, with long-term current use of insulin ([facility]),Diabetic polyneuropathy associated with type 2 diabetes mellitus ([facility]) by miscellaneous route daily Please dispense 1 pair of diabetic shoes with customized foot inserts for lifetime use, hx of diabetic feet and Type II diabetes mellitus 2 Each 1 11/27/19 24 Active insulin lispro (HUMALOG) 100 unit/mL injectionIndicatio ns:Type 2 diabetes mellitus without complication, with long-term current use of insulin ([facility]) INJECT SUBCUTANEOUSLY 3 TIMES DAILY WITH MEALS . USE 15 UNITS WITH SMALL MEAL AND 20 UNITS WITH LARGE MEALS 10 mL 12/07/19 24 Active walkerIndications: Lives in assisted living facility,Unsteady gait,Age-related cataract of both eyes, unspecified age-related cataract type,Diabetic polyneuropathy associated with type 2 diabetes mellitus ([facility]) Needs WALKER REPAIR. Need: x 99 years 1 Each 12/11/19 24 Active LANTUS U-100 INSULIN 100 unit/mL injectionIndicatio ns:Type 2 diabetes mellitus without complication, with long-term current use of insulin ([facility]) INJECT 30 UNITS SUBCUTANEOUSLY EVERY NIGHT AT BEDTIME 30 mL 3 12/19/19 24 Active ketorolac (ACULAR) 0.5 % ophthalmic solution INSTILL 1 DROP IN LEFT EYE FOUR TIMES DAILY. BEGIN 6 HOURS AFTER SURGERY AND. CONTINUE UNTIL ALL TAKEN Authorized by: EDDA GLOVER 04/17/19 25 Active ofloxacin (OCUFLOX) 0.3 % ophthalmic solution INSTILL 1 DROP IN LEFT EYE FOUR TIMES DAILY. BEGIN 6 HOURS AFTER SURGERY AND. CONTINUE FOR 7 DAYS Authorized by: EDDA GLOVER 04/17/19 25 Active Active Problems Problem Noted Date Diagnosed Date Medically noncompliant 04/18/2024 Dyspnea on exertion 01/04/2024 Ex-smoker 01/04/2024 History of anticoagulant therapy 01/04/2024 Unsteady gait 11/07/2023 Type 2 diabetes mellitus wit h hyperglycemia, with long-term current use of insulin ([facility]) 09/10/2023 Primary hypertension 09/10/2023 Chronic obstructive pulmonary disease ([facility]) 09/10/2023 Age-related cataract of both eyes 09/10/2023 Diabetic polyneuropathy asso ciated with type 2 diabetes mellitus ([facility]) 09/10/2023 Uses roller walker 09/10/2023 Lives in assisted living facility 09/10/2023 Resolved Problems Problem Noted Date Diagnosed Date Resolved Date Paroxysmal A-fib ([facility]) 09/10/2023 0 04/18/2024 Encounters Date Type Department Care Team Description 05/08/2024 1:40 PM EST Telemedicine Visit [address] [phone] Ruddy Aguillon, PharmD Type 2 diabetes mellitus with hyperglycemia, with long-term current use of insulin ([facility]) (Primary Dx); Primary hypertension; Medication management 04/18/2024 11:00 AM EST Office Visit [address] [phone] Rick Barron FNP-C Medically noncompliant (Primary Dx); Type 2 diabetes mellitus with hyperglycemia, with long-term current use of insulin ([facility]); Primary hypertension from Last 3 Months Immunizations Immunization Administration Dates Next Due INFLUENZA, SEASONAL, INJECTABLE 11/23/19 19,11/25/2017,11/15/2011, 1 PNEUMOCOCCAL CONJUGATE PCV 13 06/10/2014 PNEUMOCOCCAL POLYSACCHARIDE PPV23 01/26/2011 TDAP 01/09/2014 Td (adult) unspecified 03/12/2006 Social History Tobacco Use Types Packs/Day Years Used Date Smoking Tobacco: Former Cigarettes Smokeless Tobacco: Former Quit: 05/11/1998 Tobacco Cessation:Counseling Given: Not Answered Alcohol Use Standard Drinks/Week Comments Never 0 (1 standard drink = 0.6 oz pur e alcohol) Social Connections Answer Date Recorded Connectedness 0 11/23/2023 Financial Resource Strain Answer Date R ecorded Financial Resource Strain 0 2023 Stress Answer Date Recorded Stress 0 05/08/2023 Physical Activity Answer Date Recorded Physical Activity 0 05/08/2023 Food Insecurity Answer Date Recorded Food 0 12/06/2023 Transportation Needs Answer Date Record ed Transportation 0 05/08/2023 Housing Stability Answer Date Recorded Housing 0 05/08/2023 Safety and Environment Answer Date Jordi rded Safety 0 05/08/2023 Utilities Answer Date Recorded Utilities 0 05/08/2023 Employment Answer Date Recorded Stress 0 11/23/2023 Sex and Gender Information Value Date Recorded Sex Assigned at Male 09/10/2023 8:27 AM PDT Legal Sex Male 10:39 AM PDT Gender Identity Male 09/10/2023 8:27 AM PDT Sexual Orientation Straight 09/10/2023 8: 27 AM PDT Last Filed Vital Signs Vital Sign Reading Time Taken Comments Blood Pressure 142/82 04/18/2024 11:06 AM EST Pulse 62 04/18/2024 11:06 AM EST Temperature 36.6 ??C (97.8 ??F) 04/18/2024 1 1:06 AM EST Respiratory Rate 16 04/18/2024 11:0 6 AM EST Oxygen Saturation 98% 04/18/2024 11: 06 AM EST Inhaled Oxygen Concentration - - Weight 73.4 kg (161 lb 12.8 oz) 025 11:06 AM EST Height 170.2 cm (5' 7 ) 04/18/2024 11:0 6 AM EST Body Mass Index 25.34 04/18/2024 11:06 AM EST Plan of Treatment Upcoming Encounters Date Type Department Care Team (Late st Contact Info) Description 07/16/2024 10:10 AM EDT Interim Notes [facility] [address] [place] [phone] 07/16/2024 10:40 AM EDT Office Visit [address] [phone] August Bello MD [address] [place] [phone] 07/16/2024 11:10 AM EDT Interim Notes [facility] [address] [place] [phone] 07/23/2024 12:30 PM EDT Interim Notes [facility] [address] [place] [phone] 07/23/2024 1:00 PM EDT Office Visit [address] [phone] Teresa Robertson MD [address] [place] [address] 07/23/2024 1:50 PM EDT Interim Notes [facility] [address] [place] [phone] 08/21/2024 10:50 AM EDT Interim Notes [facility] [place] [phone] 08/21/2024 11:20 AM EDT Office Visit [facility] [address] [place] [phone] Samir Gray FNP [address] [place] [address] 08/21/2024 11:50 AM EDT Interim Notes [facility] [place] [phone] Health Maintenance Due Date Last Done Comments Dental Examination 1945 Diabetes Foot Exam 1946 Retinopathy Screening 1959 Imm-Zoster, Recombinant (1 of 2) 1996 Falls Prevention 2011 Imm-Pneumococcal 65+ (3 of 3 - PCV20 or PCV21) 06/11/2019 06/10/2014, 01/26/2011 Imm-DTaP/Tdap/Td (2 - Td or Tdap) 01/10/2024 01/09/2014, 03/12/2006 Diabetes HbA1c 06/11/2024 03/13/2024, 09/07/2023 [id number] ( season) 2024 07/25/2021, 01/14/2021, 05/10/2020, Additional history exists Postponed from 11/11/2023 (Patient postponement) Medicare Annual Wellness Visit 09/06/2024 09/07/2023 Urine Albumin Creatinine Ratio Screening 09/06/2024 09/07/2023 Imm-Influenza (#1) 2024 11/22/2018, 0 11/25/2017, 11/15/2011, Additional history exists Postponed from 11/11/2023 (Patient postponement) Tobacco Screening 10/15/2024 10/16/2023, 09/07/2023 Lipid Screening 03/13/2025 03/13/2024, 09/07/2023 Serum Creatinine 03/13/2025 03/13/2024, 09/07/2023 Alcohol and Drug Screen Completed 04/18/19, 03/13/2024, 09/07/2023 Depression Annual Screen Completed 04/18/2024, 08/11 Hepatitis C Screening Discontinued Procedures Procedure Name Priority Date/Time Associated Diagnosis Comments OTHER ORDERS SCANNED DOCUMENT 05/21/2024 3:00 AM EDT COMPREHENSIVE METABOLIC PANEL Routine 03/13/2024 2:25 PM EST Type 2 diabetes mellitus without complication, with long-term current use of insulin ([facility]) LIPID PANEL Routine 03/13/2024 2:25 PM EST Type 2 diabetes mellitus without complication, with long-term current use of insulin ([facility]) HEMOGLOBIN GLYCOSYLATED A1C Routine 03/13/2024 2:25 PM EST Type 2 diabetes mellitus without complication, with long-term current use of insulin ([facility]) MICROALBUMIN/CREATININ E RATIO, URINE, RANDOM Routine 09/07/2023 3:22 PM EDT Type 2 diabetes mellitus with other specified complication, with long-term current use of insulin ([facility]) from Last 3 Months or Most Recently Relevant to Health Maintenance Results * OTHER ORDERS SCANNED DOCUMENT (05/21/2024 3:00 AM EDT) 05/21/2024 3:00 AM EDT us August Bello MD SCAN OTHER ORDERS Final Resu lt * (ABNORMAL) HEMOGLOBIN GLYCOSYLATED A1C (03/13/2024 2:25 PM EST) HEMOGLOBIN A1C 9.1(H) <5.7 % of total Hgb [facility] Comment: For someone without known diabetes, a hemoglobin A1c value of 6.5% or greater indicates that they may have diabetes and this should be confirmed with a follow-up test. For someone with known diabetes, a value <7% indicates that their diabetes is well controlled and a value greater than or equal to 7% indicates suboptimal control. A1c targets should be individualized based on duration of diabetes, age, comorbid conditions, and other considerations. Currently, no consensus exists regarding use of hemoglobin A1c for diagnosis of diabetes for children. ?? Blood Blood / Unknown 03/13/2024 2 :25 PM EST 03/13/2024 2:28 PM EST Narrative [employer] - 03/14/2024 10:42 AM EST FASTING:NO Rick Barron AUDITOR TAX-C LAB - BLOOD DRAW Edited R esult - Final [employer] [address] [address], [employer] [address] [phone] * LIPID PANEL (03/13/2024 2:25 PM EST) [facility] Signature CHOLESTEROL, TOTAL 150 <200 mg/dL [employer] [facility] HDL CHOLESTEROL 53 > OR = 40 mg/dL [facility] TRIGLYCERIDES 102 <150 mg/dL [facility] LDL-CHOLESTEROL 78 99 mg/dL (calc) [facility] Comment: Reference range: <100 Desirable range <100 mg/dL for primary prevention; ?? <70 mg/dL for patients with CHD or diabetic patients with > or = 2 CHD risk factors. LDL-C is now calculated using the Mahesh-Leeann calculation, which is a validated novel method providing better accuracy than the Friedewald equation in the estimation of LDL-C. Mahesh GILBERT et al. LEO. 2013;310(19): 8832-8601 (http://education.Policard.CryoLife/faq/KSO740) CHOL/HDLC RATIO 2.8 <5.0 (calc) [facility] NON-HDL CHOLESTEROL 97 <130 mg/dL (calc) [facility] Comment: For patients with diabetes plus 1 major ASCVD risk factor, treating to a non-HDL-C goal of <100 mg/dL (LDL-C of <70 mg/dL) is considered a therapeutic option. Blood Blood / Unknown 03/13/2024 2 :25 PM EST 03/13/2024 2:28 PM EST Narrative [employer] [facility] - 03/14/2024 10:42 AM EST FASTING:NO Rick Barron AUDITOR TAX-C LAB - BLOOD DRAW Final Re sult [employer] [address] [address], [employer] [facility] [address] [place] [address] * (ABNORMAL) COMPREHENSIVE METABOLIC PANEL (03/13/2024 2:25 PM EST) GLUCOSE 220(H) 65 - 139 mg/dL [employer] [facility] Comment: ?Non-fasting reference interval UREA NITROGEN (BUN) 28(H) 7 - 25 mg/dL [employer] [facility] CREATININE (blood) 1.09 0.70 - 1.28 mg/dL [employer] [facility] EGFR 70 > OR = 60 mL/min/1. 73m2 [employer] [facility] BUN/CREATININE RATIO 26(H) 6 - 22 (calc) [employer] [facility] SODIUM 137 135 - 146 mmol/L [employer] [facility] POTASSIUM 4.3 3.5 - 5.3 mmol/L [employer] [facility] CHLORIDE 102 98 - 110 mmol/L [employer] [facility] CARBON DIOXIDE 26 20 - 32 mmol/L [employer] [facility] CALCIUM 9.2 8.6 - 10.3 mg/dL [employer] [facility] PROTEIN, TOTAL 6.6 6.1 - 8.1 g/dL [employer] [facility] ALBUMIN 4.2 3.6 - 5.1 g/dL [employer] [facility] GLOBULIN 2.4 1.9 - 3.7 g/dL (calc) [employer] [facility] ALBUMIN/GLOBULI N RATIO 1.8 1.0 - 2.5 (calc) [employer] [facility] BILIRUBIN, TOTAL 1.1 0.2 - 1.2 mg/dL [employer] [facility] ALKALINE PHOSPHATASE 68 35 - 144 U/L [employer] [facility] AST 14 10 - 35 U/L [employer] [facility] ALT 13 9 - 46 U/L [employer] [facility] Blood Blood / Unknown 03/13/2024 2 :25 PM EST 03/13/2024 2:28 PM EST Narrative [employer] - 03/14/2024 10:42 AM EST FASTING:NO Rick Barron AUDITOR TAX-C LAB - BLOOD DRAW Final Re sult Performing Organization Address [facility] de Phone Number [employer] [address] [place] [phone], [employer] [address] [phone] * (ABNORMAL) MICROALBUMIN/CREATININE RATIO, URINE, RANDOM (09/07/2023 3:22 PM EDT) CREATININE, RANDOM URINE 114 20 - 320 mg/dL [employer] [facility] MICROALBUMIN 3.8 mg/dL [employer] [facility] Comment: Reference Range Not established MICROALBUMIN/CREA TININE RATIO, RANDOM URINE 33(H) <30 mg/g creat [employer] [facility] Comment: The ADA defines abnormalities in albumin excretion as follows: Albuminuria Category ?Result (mg/g creatinine) Normal to Mildly increased ?? <30 Moderately increased ? 30-299 Severely increased ? > OR = 300 The ADA recommends that at least two of three specimens collected within a 3-6 month period be abnormal before considering a patient to be within a diagnostic category. Urine Urine specimen / Unknown 09/07/2023 3:22 PM EDT 09/07/2023 3:23 PM EDT Rick Barron AUDITOR TAX-C LAB - NO BLOOD DRAW Final Result Performing Organization Address [facility] Co de Phone Number [employer] [address] [address], [employer] [address] [phone] from Last 3 Months or Most Recently Relevant to Health Maintenance Insurance [facility] Care Teams Varitypist Relationship Specialty Start Date End Date August Bello MD [address] [place] [address] PCP - General Internal Medicine 04/18/24
== END 2024-07-03 16:28 | disposition home or self-care (01) ==
LOC: HO.HMCH 13:51
DX: E11.9 Type 2 diabetes mellitus without complications (principal)

== ENCOUNTER → 2024-07-03 13:50 | Outpatient (BNVA) | payer OTHER, SELFPAY | DX: J44.9 Chronic obstructive pulmonary disease, unspecified (principal); E11.9 Type 2 diabetes mellitus without complications; I10 Essential (primary) hypertension; I48.0 Paroxysmal atrial fibrillation; S61.412D Laceration without foreign body of left hand, subsequent encounter; W19.XXXD Unspecified fall, subsequent encounter; Z79.01 Long term (current) use of anticoagulants; Z79.4 Long term (current) use of insulin | CPT/HCPCS: 83036; 96127; 99212 ==

== ENCOUNTER 2024-09-11 12:22 | Outpatient (AMB) | payer MEDICARE, SELFPAY ==
[2024-09-11 12:25] VITALS: BP 100/52; PULSE 83; O2SAT 95; BMI 22.4
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
--- OUTSIDE RECORDS SUMMARY | 2024-09-11 12:40 | XMS_ITS | Clinical Summary ---
Author Organization [facility] Address [id number] [place] [id number] Care Team Providers Care Product Marketing Programs Manager Name Role Phone Unavailable Primary Care Provider [...]
== END 2024-09-11 13:10 | disposition home or self-care (01) ==
LOC: HO.HMCH 12:22
PROVIDERS: PCP Internal Medicine; Visit Provider Internal Medicine
DX: E11.65 Type 2 diabetes mellitus with hyperglycemia (principal); Z79.4 Long term (current) use of insulin; J44.9 Chronic obstructive pulmonary disease, unspecified; I10 Essential (primary) hypertension; I49.9 Cardiac arrhythmia, unspecified

== ENCOUNTER → 2024-09-11 12:22 | Outpatient (BNVA) | payer MEDICARE, SELFPAY | PROVIDERS: PCP Internal Medicine; Visit Provider Internal Medicine | DX: E11.65 Type 2 diabetes mellitus with hyperglycemia (principal); J44.9 Chronic obstructive pulmonary disease, unspecified; I48.91 Unspecified atrial fibrillation; I10 Essential (primary) hypertension; I49.9 Cardiac arrhythmia, unspecified; Z79.4 Long term (current) use of insulin | CPT/HCPCS: 83036; 96127; 99212 ==

== ENCOUNTER 2024-11-26 13:19 | Outpatient (AMB) | payer MEDICARE, SELFPAY ==
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
[2024-11-26 13:21] VITALS: BP 118/50; PULSE 63; RESP 18; TEMP 36.4; O2SAT 95; BMI 23.7
--- OUTSIDE RECORDS SUMMARY | 2024-11-26 17:01 | XMS_ITS | Clinical Summary ---
Author Organization [facility] Address [address] [place] [address] Care Team Providers Care Capacity Planning Engineer Name Role Phone August Bello MD Primary [...] by mouth once daily 09/27/19 23 Active ONETOUCH DELICA PLUS LANCET 33 gauge USE DIRECTED TO TEST BLOOD SUGAR THREE TIMES A DAY BEFORE MEALS 03/24/19 24 Active lisinopriL 40 mg tablet Take 40 mg by mouth once daily 07/14/19 24 Active XARELTO 20 mg tab 07/14/19 24 Active MISCELLANEOUS MEDICAL SUPPLY MISCIndications:Ty pe 2 diabetes mellitus with hyperglycemia, with long-term current use of insulin (CMS & HHS-HCC),Diabetic polyneuropathy associated with type 2 diabetes mellitus (CMS & HHS-HCC) by miscellaneous route daily Please dispense 1 pair of diabetic shoes with customized foot inserts for lifetime use, hx of diabetic feet and Type II diabetes mellitus 2 Each 1 11/27/19 24 Active walkerIndications: Lives in assisted living facility,Unsteady gait,Age-related cataract of both eyes, unspecified age-related cataract type,Diabetic polyneuropathy associated with type 2 diabetes mellitus ([facility]) Needs WALKER REPAIR. Need: x 89 years 1 Each 12/11/19 24 Active ketorolac (ACULAR) 0.5 % ophthalmic solution INSTILL 1 DROP IN LEFT EYE FOUR TIMES DAILY. BEGIN 6 HOURS AFTER SURGERY AND. CONTINUE UNTIL ALL TAKEN Authorized by: EDDA GLOVER 04/17/19 25 Active insulin lispro (HUMALOG) 100 unit/mL injectionIndicatio ns:Type 2 diabetes mellitus without complication, with long-term current use of insulin ([facility]) INJECT SUBCUTANEOUSLY 3 TIMES DAILY WITH MEALS . USE 15 UNITS WITH SMALL MEAL AND 20 UNITS WITH LARGE MEALS 60 mL 2 08/20/19 25 Active LANTUS U-100 INSULIN 100 unit/mL injectionIndicatio ns:Type 2 diabetes mellitus without complication, with long-term current use of insulin ([facility]) INJECT 30 UNITS SUBCUTANEOUSLY EVERY NIGHT AT BEDTIME 40 mL 2 10/22/19 25 Active Active Problems Problem Noted Date Diagnosed Date Alcohol abuse 07/16/2024 Overview (07/16/2024): In remission since 1998 Nonadherence to medical treatment 04/18/2024 History of anticoagulant therapy 01/04/2024 Unsteady gait 11/07/2023 Type 2 diabetes mellitus wit h hyperglycemia, with long-term current use of insulin ([facility]) 09/10/2023 Essential hypertension 09/10/2023 Simple chronic bronchitis ([facility]) 2023 Age-related cataract of both eyes 09/10/2023 Diabetic polyneuropathy asso ciated with type 2 diabetes mellitus ([facility]) 09/10/2023 Uses roller walker 09/10/2023 Resolved Problems Problem Noted Date Diagnosed Date Resolved Date Paroxysmal A-fib ([facility]) 09/10/2023 04/18/2024 Immunizations Immunization Administration Dates Next Due INFLUENZA, SEASONAL, INJECTABLE 11/23/19 19,11/25/2017,11/15/2011,11/16 PNEUMOCOCCAL CONJUGATE PCV 13 06/10/2014 PNEUMOCOCCAL POLYSACCHARIDE PPV23 (Pneumovax 23) 01/26/2011 TDAP 01/09/2014 Td (adult) unspecified 03/12/2006 Social History Tobacco Use Types Packs/Day Years Used Date Smoking Tobacco: Former Cigarettes 1.5 37 1 962 - 1998 Smokeless Tobacco: Former Quit: 05/11/1998 Alcohol Use Standard Drinks/Week Comments Not Currently 0 (1 standard drink = 0.6 oz [...] Sign Reading Time Taken Comments Blood Pressure 140/88 07/16/2024 10:49 AM EDT Pulse 69 07/16/2024 10:49 AM EDT Temperature 36.4 C (97.5 F) 07/16/2024 10:49 AM EDT Respiratory Rate 18 07/16/2024 10:49 AM EDT Oxygen Saturation 98% 04/18/2024 11:06 AM EST Inhaled Oxygen Concentration - - Weight 68.5 kg (151 lb) 07/16/2024 10:49 AM EDT Height 170.2 cm (5' 7 ) 07/16/2024 10:49 AM EDT Body Mass Index 23.65 07/16/2024 10:49 AM EDT Plan of Treatment Upcoming Encounters Date Type Department Care Team (Late st Contact Info) Description 01/02/2025 1:00 PM EDT Office Visit [facility] Main [address] [place] [address] Noel KarinaJORGE scherer [address] [place] [address] Health Maintenance Due Date Last Done Comments Dental Examination 1946 Diabetes Foot Exam 1946 Retinopathy Screening 1959 Medicare Annual Wellness Visit 1964 Falls Prevention 2011 Imm-RSV (adult) (1 - 1-dose 75+ series) 2021 Hemoglobin A1c 06/11/2024 03/13/2024, 09/07/2023 Urine Albumin Creatinine Rat io Screening 09/06/2024 09/07/2023 Imm-Influenza (#1) 2024 11/22/2018, 0 11/25/2017, 11/15/2011, Additional history exists Lipid Screening 03/13/2025 03/13/2024, 09/07/2023 Serum Creatinine 03/13/2025 03/13/2024, 09/07/2023 Tobacco Screening 07/16/2025 07/16/2024, , 09/07/2023 Imm-DTaP/Tdap/Td Discontinued 01/09/2014, 03/12/2006 Imm-Pneumococcal 50+ Discontinued 06/10/2014, 01/27/20 11 [id number] Discontinued 07/25/2021, 07/2020, 05/10/2020, Additional history exists Alcohol and Drug Screen Completed 07/17/19, 04/18/2024, 03/13/2024, Additional history exists Depression Annual Screen Completed 07/16/2024, 08/11 Hepatitis C Screening Discontinued Imm-Zoster, Recombinant Discontinued Procedures Procedure Name Priority Date/Time Associated Diagnosis Comments REFERRAL SCANNED DOCUMENT 09/08/2024 3:00 AM EDT COMPREHENSIVE METABOLIC PANEL Routine 03/13/2024 2:25 PM EST Type 2 diabetes mellitus without complication, with long-term current use of insulin ([facility]) LIPID PANEL Routine 03/13/2024 2:25 PM EST Type 2 diabetes mellitus without complication, with long-term current use of insulin ([facility]) HEMOGLOBIN GLYCOSYLATED A1C Routine 03/13/2024 2:25 PM EST Type 2 diabetes mellitus without complication, with long-term current use of insulin ([facility]) MICROALBUMIN/CREATININ E RATIO, URINE, RANDOM Routine 09/07/2023 3:22 PM EDT Type 2 diabetes mellitus with other specified complication, with long-term current use of insulin ([facility]) from Last 3 Months or Most Recently Relevant to Health Maintenance Results * REFERRAL SCANNED DOCUMENT (09/08/2024 3:00 AM EDT) 09/08/2024 3:00 AM EDT [facility] Provider Default SCAN REFERRAL Final Resu lt * (ABNORMAL) HEMOGLOBIN GLYCOSYLATED A1C (03/13/2024 2:25 PM EST) HEMOGLOBIN A1C 9.1(H) <5.7 % of total Hgb [facility] [employer] Comment: For someone without known diabetes, a [...] A1c for diagnosis of diabetes for children. Blood Blood / Unknown 03/13/2024 2 :25 PM EST 03/13/2024 2:28 PM EST Narrative [facility] - 03/14/2024 10:42 AM EST FASTING:NO Rick PATEL-Lucy LAB - BLOOD DRAW Edited R esult - Final [employer] [address] [address], [place] [address] [address] * LIPID PANEL (03/13/2024 2:25 PM EST) CHOLESTEROL, TOTAL 150 <200 mg/dL [facility] HDL CHOLESTEROL 53 > OR = 40 mg/dL [facility] TRIGLYCERIDES 102 <150 mg/dL [facility] LDL-CHOLESTEROL 78 99 mg/dL (calc) [facility] Comment: Reference range: <100 Desirable range <100 mg/dL for primary prevention; <70 mg/dL for patients with CHD or diabetic patients with > or = 2 CHD risk factors. LDL-C is now calculated using the Theresa calculation, which is a validated novel method providing better accuracy than the Friedewald equation in the estimation of LDL-C. Mahesh GILBERT et al. LEO. 2013;310(19): 7363-8986 (http://education.[employer]/faq/ZPR140) CHOL/HDLC RATIO 2.8 <5.0 (calc) [facility] NON-HDL CHOLESTEROL 97 <130 mg/dL (calc) [facility] Comment: For patients with diabetes plus 1 major ASCVD risk factor, treating to a non-HDL-C goal of <100 mg/dL (LDL-C of <70 mg/dL) is considered a therapeutic option. Blood Blood / Unknown 03/13/2024 2 :25 PM EST 03/13/2024 2:28 PM EST Narrative [facility] - 03/14/2024 10:42 AM EST FASTING:NO us Rick Barron LOAN SERVICING SPECIALIST-C LAB - BLOOD DRAW Final Re sult [facility] [address] [address], [place] [address] [address] * (ABNORMAL) COMPREHENSIVE METABOLIC PANEL (03/13/2024 2:25 PM EST) GLUCOSE 220(H) 65 - 139 mg/dL [facility] Comment: Non-fasting reference interval UREA NITROGEN (BUN) 28(H) 7 - 25 mg/dL [facility] CREATININE (blood) 1.09 0.70 - 1.28 mg/dL [facility] EGFR 70 > OR = 60 mL/min/1. 73m2 [facility] BUN/CREATININE RATIO 26(H) 6 - 22 (calc) [facility] SODIUM 137 135 - 146 mmol/L [facility] POTASSIUM 4.3 3.5 - 5.3 mmol/L [facility] CHLORIDE 102 98 - 110 mmol/L [facility] CARBON DIOXIDE 26 20 - 32 mmol/L [facility] CALCIUM 9.2 8.6 - 10.3 mg/dL [facility] PROTEIN, TOTAL 6.6 6.1 - 8.1 g/dL [facility] ALBUMIN 4.2 3.6 - 5.1 g/dL [facility] GLOBULIN 2.4 1.9 - 3.7 g/dL (calc) [facility] ALBUMIN/GLOBULI N RATIO 1.8 1.0 - 2.5 (calc) [facility] BILIRUBIN, TOTAL 1.1 0.2 - 1.2 mg/dL [facility] ALKALINE PHOSPHATASE 68 35 - 144 U/L [facility] AST 14 10 - 35 U/L [facility] ALT 13 9 - 46 U/L [facility] Blood Blood / Unknown 03/13/2024 2 :25 PM EST 03/13/2024 2:28 PM EST Narrative [facility] - 03/14/2024 10:42 AM EST FASTING:NO Rick Barron LOAN SERVICING SPECIALIST-C LAB - BLOOD DRAW Final Re sult [facility] [address] [address], [facility] [address] [place] [address] * (ABNORMAL) MICROALBUMIN/CREATININE RATIO, URINE, RANDOM (09/07/2023 3:22 PM EDT) CREATININE, RANDOM URINE 114 20 - 320 mg/dL [facility] MICROALBUMIN 3.8 mg/dL [employer] Comment: Reference Range Not established MICROALBUMIN/CREA TININE RATIO, RANDOM URINE 33(H) <30 mg/g creat [employer] Comment: The ADA defines abnormalities in albumin excretion as follows: Albuminuria Category Result (mg/g creatinine) Normal to Mildly increased <30 Moderately increased 30-299 Severely increased > OR = 300 The ADA recommends that at least two of three specimens collected within a 3-6 month period be abnormal before considering a patient to be within a diagnostic category. Urine Urine specimen / Unknown 09/07/2023 3:22 PM EDT 09/07/2023 3:23 PM EDT Rick Barron LOAN SERVICING SPECIALIST-C LAB URINE AMBULATORY Eliza l Result [employer] [address] [address], [employer] [address] [place] [address] from Last 3 Months or Most Recently Relevant to Health Maintenance Insurance [facility] Care Teams Capacity Planning Engineer Relationship Specialty Start Date End Date August Bello MD [address] [place] [address] PCP - General Internal Medicine 04/18/24
--- OUTSIDE RECORDS SUMMARY | 2024-11-26 17:01 | XMS_ITS | Clinical Summary ---
Author Organization [facility] Address [address] [place] [address] Care Team Providers Care Steel Sash Erector Name Role Phone Unavailable Primary Care Provider [...] series) 2021 Cholesterol Screening (Lipid Panel) 04/05/2023 Falls Risk Assessment 04/05/2023 Hepatitis C Screening 04/05/2023 Social Influencers of Health Screening 04/05/2023 Depression Screening 03/12/2024 COVID-19 Vaccine ( - 2023-2 5 season) 2024 Influenza Vaccine (#1) 2024 HIB Vaccines Aged Out No longer [...]
== END 2024-11-26 14:12 | disposition home or self-care (01) ==
LOC: HO.HMCH 13:19
PROVIDERS: PCP Internal Medicine
DX: E11.65 Type 2 diabetes mellitus with hyperglycemia (principal); Z79.4 Long term (current) use of insulin; J44.9 Chronic obstructive pulmonary disease, unspecified; I10 Essential (primary) hypertension; Z01.818 Encounter for other preprocedural examination; I49.9 Cardiac arrhythmia, unspecified; H26.9 Unspecified cataract; N28.89 Other specified disorders of kidney and ureter

== ENCOUNTER → 2024-11-26 13:19 | Outpatient (BNVA) | payer MEDICARE, SELFPAY | PROVIDERS: PCP Internal Medicine | DX: Z01.818 Encounter for other preprocedural examination (principal); E11.65 Type 2 diabetes mellitus with hyperglycemia; E11.649 Type 2 diabetes mellitus with hypoglycemia without coma; I10 Essential (primary) hypertension; J44.9 Chronic obstructive pulmonary disease, unspecified; R60.0 Localized edema; I49.9 Cardiac arrhythmia, unspecified; H26.9 Unspecified cataract; N28.89 Other specified disorders of kidney and ureter; Z79.4 Long term (current) use of insulin | CPT/HCPCS: 99212 ==

== ENCOUNTER 2024-12-02 10:16 | Outpatient (REF) | payer OTHER, SELFPAY ==
--- NOTE | 2024-12-02 10:26 | ECG_ITS ---
Test Reason : PREOP Blood Pressure : */* mmHG Vent. Rate : 56 BPM Atrial Rate : 56 BPM P-R Int : 204 ms QRS Dur : 84 ms QT Int : 392 ms P-R-T Axes : 18 -14 70 degrees QTcB Int : 378 ms Sinus bradycardia Low voltage QRS Borderline ECG When compared with ECG of 13-Feb-2024 12:28, Aberrant conduction is no longer Present Criteria for Inferior infarct are no longer Present Referred By: Pop Gutierres Electronically Signed By: Milan Abreu
[2024-12-02 11:16] LABS: Hematocrit 38.2 % (42.0-52.0); Hemoglobin 12.8 g/dl (14.0-18.0); Imm Gran Abs Auto 0.07 X10*3/uL (0.00-0.03); Imm Gran Pct Auto 0.8 % (0.0-0.4); Lymphocytes Absolute Auto 1.3 X10*3/uL (1.2-4.9); Mean Corpuscular HGB Conc 33.5 g/dl (31.0-36.0); Mean Corpuscular Hemoglobin 29.6 pg (27.0-33.0); Mean Corpuscular Volume 88.4 fL (80.0-98.0); NRBC Abs Auto 0.000 X10*3/uL (0.0-0.012); NRBC Pct Auto 0.0 /100WBC (0.0-0.2); Platelet Count 198 X10*3/uL (160-400); Red Blood Count 4.32 X10*6/uL (4.60-5.80); White Blood Count 8.8 X10*3/uL (4.8-10.8)
[2024-12-02 11:19] LABS: Hemoglobin A1C 171.2666 umol/L; Total Hemoglobin (HGBA1C) 3307.3824 umol/L
[2024-12-02 11:40] LABS: Appearance Urine Clear; Glucose Urine UA Negative (Negative); PH 5.0 (5.0-9.0); Specific Gravity - Urine 1.020 (1.005-1.025)
--- OUTSIDE RECORDS SUMMARY | 2024-12-02 12:33 | XMS_ITS | Clinical Summary ---
Author Organization [facility] Address [address] [place] [address] Care Team Providers Care Wildlife Science Professor Name Role Phone August Bello MD Primary [...] polyneuropathy associated with type 2 diabetes mellitus ([facility]) Needs WALKER REPAIR. Need: x 99 years 1 Each 12/11/19 24 Active ketorolac (ACULAR) 0.5 % ophthalmic solution INSTILL 1 DROP IN LEFT EYE FOUR TIMES DAILY. BEGIN 6 HOURS AFTER SURGERY AND. CONTINUE UNTIL ALL TAKEN Authorized by: EDDA GLOVER 04/17/19 25 Active insulin lispro (HUMALOG) 100 unit/mL injectionIndicatio ns:Type 2 diabetes mellitus without complication, with long-term current use of insulin ([facility]) INJECT SUBCUTANEOUSLY 3 TIMES DAILY WITH MEALS . USE 15 UNITS WITH SMALL MEAL AND 20 UNITS WITH LARGE MEALS 60 mL 2 08/20/19 25 Active LANTUS U-100 INSULIN 100 unit/mL injectionIndicatio ns:Type 2 diabetes mellitus without complication, with long-term current use of insulin ([facility]) INJECT 30 UNITS SUBCUTANEOUSLY EVERY NIGHT AT BEDTIME 40 mL 2 10/22/19 25 Active Active Problems Problem Noted Date Diagnosed Date Alcohol abuse 07/16/2024 Overview (07/16/2024): In remission since 1998 Nonadherence to medical treatment 04/18/2024 History of anticoagulant therapy 01/04/2024 Unsteady gait 11/07/2023 Type 2 diabetes mellitus wit h hyperglycemia, with long-term current use of insulin ([facility]) 09/10/2023 Essential hypertension 09/10/2023 Simple chronic bronchitis ([facility]) 2023 Age-related cataract of both eyes 09/10/2023 Diabetic polyneuropathy asso ciated with type 2 diabetes mellitus ([facility]) 09/10/2023 Uses roller walker 09/10/2023 Resolved Problems Problem Noted Date Diagnosed Date Resolved Date Paroxysmal A-fib ([facility]) 09/10/2023 04/18/2024 Immunizations Immunization Administration Dates Next [...] Description 01/02/2025 1:00 PM EDT Office Visit [facility] Main [address] [place] [address] Noel KarinaJORGE scherer [address] [place] [address] Health Maintenance Due Date Last Done Comments [...] 03/12/2006 Imm-Pneumococcal 50+ Discontinued 06/10/2014, 01/27/20 11 [id number] Discontinued 07/25/2021, 07/2020, 05/10/2020, Additional history exists [...] complication, with long-term current use of insulin ([facility]) LIPID PANEL Routine 03/13/2024 2:25 PM EST Type 2 diabetes mellitus without complication, with long-term current use of insulin ([facility]) HEMOGLOBIN GLYCOSYLATED A1C Routine 03/13/2024 2:25 PM EST Type 2 diabetes mellitus without complication, with long-term current use of insulin ([facility]) MICROALBUMIN/CREATININ E RATIO, URINE, RANDOM Routine 09/07/2023 3:22 PM EDT Type 2 diabetes mellitus with other specified complication, with long-term current use of insulin ([facility]) from Last 3 Months or Most Recently Relevant to Health Maintenance Results * REFERRAL SCANNED DOCUMENT (09/08/2024 3:00 AM EDT) 09/08/2024 3:00 AM EDT [facility] Provider Default SCAN REFERRAL Final Resu lt * (ABNORMAL) HEMOGLOBIN GLYCOSYLATED A1C (03/13/2024 2:25 PM EST) HEMOGLOBIN A1C 9.1(H) <5.7 % of total Hgb [facility] [place] [employer] Comment: For someone without known diabetes, a [...] PM EST 03/13/2024 2:28 PM EST Narrative [facility] [employer] [facility] - 03/14/2024 10:42 AM EST FASTING:NO Rick PATEL-Lucy LAB - BLOOD DRAW Edited R esult - Final [employer] [address] [address], [facility] [address] [address] * LIPID PANEL (03/13/2024 2:25 PM EST) CHOLESTEROL, TOTAL 150 <200 mg/dL [facility] HDL CHOLESTEROL 53 > OR = 40 mg/dL [facility] TRIGLYCERIDES 102 <150 mg/dL [facility] LDL-CHOLESTEROL 78 99 mg/dL (calc) [facility] Comment: Reference range: <100 Desirable range <100 mg/dL for primary prevention; <70 mg/dL for patients with CHD or diabetic patients with > or = 2 CHD risk factors. LDL-C is now calculated using the Theresa calculation, which is a validated novel method providing better accuracy than the Friedewald equation in the estimation of LDL-C. Mahesh GILBERT et al. LEO. 2013;310(19): 4496-8312 (http://education.[employer]/faq/UUA882) CHOL/HDLC RATIO 2.8 <5.0 (calc) [facility] NON-HDL CHOLESTEROL 97 <130 mg/dL (calc) [facility] Comment: For patients with diabetes plus 1 major ASCVD risk factor, treating to a non-HDL-C goal of <100 mg/dL (LDL-C of <70 mg/dL) is considered a therapeutic option. Blood Blood / Unknown 03/13/2024 2 :25 PM EST 03/13/2024 2:28 PM EST Narrative [facility] [facility] - 03/14/2024 10:42 AM EST FASTING:NO us Rick Barron [employer] ARCHITECT-C LAB - BLOOD DRAW Final Re sult [facility] [address] [address], [facility] [address] [address] * (ABNORMAL) COMPREHENSIVE METABOLIC PANEL (03/13/2024 2:25 PM EST) GLUCOSE 220(H) 65 - 139 mg/dL [facility] Comment: Non-fasting reference interval UREA NITROGEN (BUN) 28(H) 7 - 25 mg/dL [facility] CREATININE (blood) 1.09 0.70 - 1.28 mg/dL [facility] EGFR 70 > OR = 60 mL/min/1. 73m2 [facility] BUN/CREATININE RATIO 26(H) 6 - 22 (calc) [facility] SODIUM 137 135 - 146 mmol/L [facility] POTASSIUM 4.3 3.5 - 5.3 mmol/L [facility] CHLORIDE 102 98 - 110 mmol/L [facility] CARBON DIOXIDE 26 20 - 32 mmol/L [facility] CALCIUM 9.2 8.6 - 10.3 mg/dL [facility] PROTEIN, TOTAL 6.6 6.1 - 8.1 g/dL [facility] ALBUMIN 4.2 3.6 - 5.1 g/dL [facility] GLOBULIN 2.4 1.9 - 3.7 g/dL (calc) [facility] ALBUMIN/GLOBULI N RATIO 1.8 1.0 - 2.5 (calc) [facility] BILIRUBIN, TOTAL 1.1 0.2 - 1.2 mg/dL [facility] ALKALINE PHOSPHATASE 68 35 - 144 U/L [facility] AST 14 10 - 35 U/L [facility] ALT 13 9 - 46 U/L [facility] Blood Blood / Unknown 03/13/2024 2 :25 PM EST 03/13/2024 2:28 PM EST Narrative [facility] - 03/14/2024 10:42 AM EST FASTING:NO Rick Barron [employer] ARCHITECT-C LAB - BLOOD DRAW Final Re sult [facility] [address] [address], [facility] [address] [place] [address] * (ABNORMAL) MICROALBUMIN/CREATININE RATIO, URINE, RANDOM (09/07/2023 3:22 PM EDT) CREATININE, RANDOM URINE 114 20 - 320 mg/dL [facility] MICROALBUMIN 3.8 mg/dL [employer] Comment: Reference Range Not established MICROALBUMIN/CREA TININE RATIO, RANDOM URINE 33(H) <30 mg/g creat [employer] Comment: The ADA defines abnormalities in albumin [...] EDT 09/07/2023 3:23 PM EDT Rick Barron [employer] ARCHITECT-C LAB URINE AMBULATORY Eliza l Result [employer] [address] [address], [employer] [address] [place] [address] from Last 3 Months or Most Recently Relevant to Health Maintenance Insurance [facility] Care Teams Wildlife Science Professor Relationship Specialty Start Date End Date August Bello MD [address] [place] [address] PCP - General Internal Medicine 04/18/24
[2024-12-02 13:00] LABS: Anion Gap 11 (12-20)
[2024-12-02 13:05] LABS: Alanine Aminotransferase 25 U/L (0-40); Albumin Level 4.4 g/dL (3.5-5.0); Alkaline Phosphatase 66 U/L (39-117); Aspartate Amino Transferase 26 U/L (5-37); Blood Urea Nitrogen 22 mg/dL (9-16); Calcium 9.1 mg/dL (8.4-10.2); Carbon Dioxide 26 mmol/L (22-29); Chloride 106 mmol/L (96-108); Estimated Glomerular Filt Rate > 60; Potassium 4.0 mmol/L (3.3-5.1); Sodium 139 mmol/L (135-145); Total Protein 7.0 g/dL (6.5-8.0)
== END 2024-12-02 10:17 | disposition home or self-care (01) ==
LOC: HO.LAB 10:16
PROVIDERS: PCP Internal Medicine; Visit Provider Internal Medicine
DX: Z01.818 Encounter for other preprocedural examination (principal); I10 Essential (primary) hypertension; E11.65 Type 2 diabetes mellitus with hyperglycemia; J44.9 Chronic obstructive pulmonary disease, unspecified; Z79.4 Long term (current) use of insulin
CPT/HCPCS: 36415; 80053; 81003; 83036; 84443; 85025; 93005

== ENCOUNTER → 2024-12-02 10:26 | Outpatient (BNV) | payer OTHER, SELFPAY | PROVIDERS: PCP Internal Medicine; Visit Provider Internal Medicine Cardiovascular Disease | DX: R00.1 Bradycardia, unspecified (principal) | CPT/HCPCS: 93010 ==

== ENCOUNTER 2024-12-17 12:25 | Outpatient (AMB) | payer MEDICARE, SELFPAY ==
[2024-12-17 12:33] VITALS: BP 110/78; PULSE 57; O2SAT 96; BMI 23.6
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
== END 2024-12-17 13:14 | disposition home or self-care (01) ==
LOC: HO.HMCH 12:25
PROVIDERS: PCP Internal Medicine; Visit Provider Internal Medicine
DX: I10 Essential (primary) hypertension (principal); E11.65 Type 2 diabetes mellitus with hyperglycemia; Z79.4 Long term (current) use of insulin; J44.9 Chronic obstructive pulmonary disease, unspecified; I49.9 Cardiac arrhythmia, unspecified

== ENCOUNTER → 2024-12-17 12:25 | Outpatient (BNVA) | payer MEDICARE, SELFPAY | PROVIDERS: PCP Internal Medicine; Visit Provider Internal Medicine | DX: I10 Essential (primary) hypertension (principal); E11.65 Type 2 diabetes mellitus with hyperglycemia; I49.9 Cardiac arrhythmia, unspecified; J44.9 Chronic obstructive pulmonary disease, unspecified; R30.0 Dysuria; E53.8 Deficiency of other specified B group vitamins; E78.00 Pure hypercholesterolemia, unspecified; E55.9 Vitamin D deficiency, unspecified; R06.09 Other forms of dyspnea; Z79.4 Long term (current) use of insulin | CPT/HCPCS: 99212 ==